=== PATIENT | male | born 1950 | race Native Hawaiian/Other Pacific Islander ===

== ENCOUNTER 2018-04-19 08:26 | Emergency (ER) | payer MEDICARE ==
[~2018-04-19] VITALS: Ht 170.2 cm; Wt 76.7 kg
[~2018-04-19 08:26] MED LIST: AMOX875 PO; ASPI81CH PO; ASPI81EC PO; Aspir 8181 MG PO; CEPH500 PO; CHLO25B PO; CYAN1000 PO; CYCL10 PO; DOCU100 PO; HYDACE5325 PO; LISI20 PO; LISI5 PO; LORA1 PO; MULTI VITAMIN1 EACH PO; MULVITMIND PO; NAPR375 PO; Norco 5-325 Ta1 EACH PO; OXYACE5T PO; OXYC5 PO; PHENY100ER PO; Pepcid20 MG PO; RXOXYACE PO; Roxicodone5 MG PO; SENN187 PO; SERT25 PO; SIME80CH PO; SIMV10 PO; SULTRIDS PO; Sulfamethoxazo1 EAC1 PO
[2018-04-19] MEDS ORDERED: Aspirin EC81 MG PO (08:57)
[2018-04-19] MEDS ORDERED: SIMV10 PO (08:57)
[2018-04-19] MEDS ORDERED: CHLO25B PO (08:58)
[2018-04-19] MEDS ORDERED: OXYC5 PO (08:58)
[2018-04-19] MEDS ORDERED: LISI20 PO (08:58)
[2018-04-19] MEDS ORDERED: PHENYTOIN PO (09:01)
[2018-04-19 09:17] LABS: BASOPHILS ABSOLUTE AUTO 0.02 K/mm3 (0.00-0.23); BASOPHILS PERCENT AUTO 0 % (0-2); EOSINOPHILS ABSOLUTE AUTO 0.29 K/mm3 (0.00-0.68); EOSINOPHILS PERCENT AUTO 4 % (0-6); Hematocrit 39.3 % (37.0-53.0); Hemoglobin 13.3 g/dL (13.5-17.5); IMMATURE GRAN ABSOLUTE AUTO 0.02 K/mm3 (0.00-0.10); IMMATURE GRAN PERCENT AUTO 0 % (0-1); LYMPHOCYTES ABSOLUTE AUTO 0.56 K/mm3 (0.84-5.20); LYMPHOCYTES PERCENT AUTO 8 % (21-46); MONOCYTES ABSOLUTE AUTO 0.82 K/mm3 (0.16-1.47); MONOCYTES PERCENT AUTO 12 % (4-13); Mean Corpuscular HGB Conc 33.8 g/dL (31.5-36.5); Mean Corpuscular Volume 98 fL (80-100); Mean Platelet Volume 8.6 fL (9.1-12.4); NEUTROPHILS PERCENT AUTO 75 % (41-73); Platelet Count 200 K/mm3 (150-400); RDW Coefficient Variation 12.8 % (11.7-14.2); RDW Standard Deviation 45.3 fL (35.1-46.3); Red Blood Cell Count 4.03 M/mm3 (4.30-5.90); White Blood Cell Count 6.71 K/mm3 (4.00-11.30)
[2018-04-19 09:35] LABS: Alanine Aminotransfer (ALT/SGP 35 U/L (12-78); Albumin, Blood 3.4 g/dL (3.4-5.0); Albumin/Globulin Ratio 1.1 (0.8-1.8); Alk Phos 115 U/L (50-136); Anion Gap 5 mmol/L (6-16); Aspartate Aminotrans (AST/SGOT 25 U/L (12-37); Bilirubin, Total 0.4 mg/dL (0.1-1.0); Blood Urea Nitrogen 10 mg/dL (8-24); Bun/Creatinine Ratio 16.6 (12.0-20.0); CO2, Blood 27 mmol/L (21-32); Calcium, Blood 7.9 mg/dL (8.5-10.1); Chloride, Blood 100 mmol/L (98-108); Globulin, Blood 3.2 g/dL (2.2-4.0); Glomerular Filtration Rate >60 (60-); Glucose, Blood 92 mg/dL (70-99); Potassium, Blood 4.2 mmol/L (3.5-5.5); Sodium, Blood 132 mmol/L (136-145); Total Protein, Blood 6.6 g/dL (6.4-8.2); Troponin I <0.015 ng/mL (0.000-0.040)
[2018-04-19 10:00] LABS: Influenza A Negative (NEGATIVE); Influenza B Negative (NEGATIVE)
[2018-04-19] MEDS ORDERED: ALBU90OI INH (10:18)
== END 2018-04-19 11:05 | disposition home or self-care (01) ==
LOC: ER 08:26
PROVIDERS: Emergency Medicine
DX: J98.01 Acute bronchospasm (principal); J06.9 Acute upper respiratory infection, unspecified; F43.10 Post-traumatic stress disorder, unspecified; I10 Essential (primary) hypertension; E78.5 Hyperlipidemia, unspecified; Z87.891 Personal history of nicotine dependence; Z79.899 Other long term (current) drug therapy; Z79.82 Long term (current) use of aspirin; Z79.891 Long term (current) use of opiate analgesic
CPT/HCPCS: 36415; 71046; 80053; 83880; 84484; 85025; 87804; 93005; 93010; 94640; 99284-25

== ENCOUNTER 2018-10-17 09:49 | Emergency (ER) | payer MEDICARE ==
[~2018-10-17] VITALS: Ht 167.6 cm; Wt 76.2 kg
[~2018-10-17 09:49] MED LIST changes: +ALBU90OI INH; +Aspirin EC81 MG PO; +PHENYTOIN PO
[2018-10-17 11:05] LABS: BASOPHILS ABSOLUTE AUTO 0.01 K/mm3 (0.00-0.23); BASOPHILS PERCENT AUTO 0 % (0-2); EOSINOPHILS ABSOLUTE AUTO 0.72 K/mm3 (0.00-0.68); EOSINOPHILS PERCENT AUTO 14 % (0-6); Hematocrit 42.5 % (37.0-53.0); Hemoglobin 14.4 g/dL (13.5-17.5); IMMATURE GRAN ABSOLUTE AUTO 0.01 K/mm3 (0.00-0.10); IMMATURE GRAN PERCENT AUTO 0 % (0-1); LYMPHOCYTES ABSOLUTE AUTO 2.01 K/mm3 (0.84-5.20); LYMPHOCYTES PERCENT AUTO 38 % (21-46); MONOCYTES ABSOLUTE AUTO 0.49 K/mm3 (0.16-1.47); MONOCYTES PERCENT AUTO 9 % (4-13); Mean Corpuscular HGB Conc 33.9 g/dL (31.5-36.5); Mean Corpuscular Volume 97 fL (80-100); Mean Platelet Volume 8.1 fL (9.1-12.4); NEUTROPHILS ABSOLUTE AUTO 2.04 K/mm3 (1.96-9.15); NEUTROPHILS PERCENT AUTO 39 % (41-73); Platelet Count 226 K/mm3 (150-400); RDW Coefficient Variation 12.5 % (11.7-14.2); Red Blood Cell Count 4.37 M/mm3 (4.30-5.90); White Blood Cell Count 5.28 K/mm3 (4.00-11.30)
[2018-10-17 11:17] LABS: Alanine Aminotransfer (ALT/SGP 41 U/L (12-78); Albumin, Blood 3.8 g/dL (3.4-5.0); Albumin/Globulin Ratio 1.1 (0.8-1.8); Alk Phos 113 U/L (50-136); Anion Gap 5 mmol/L (6-16); Aspartate Aminotrans (AST/SGOT 23 U/L (12-37); Bilirubin, Total 0.6 mg/dL (0.1-1.0); Blood Urea Nitrogen 9 mg/dL (8-24); Bun/Creatinine Ratio 12.9 (12.0-20.0); CO2, Blood 29 mmol/L (21-32); Calcium, Blood 8.3 mg/dL (8.5-10.1); Chloride, Blood 101 mmol/L (98-108); Globulin, Blood 3.5 g/dL (2.2-4.0); Glomerular Filtration Rate >60 (60-); Glucose, Blood 99 mg/dL (70-99); Potassium, Blood 4.3 mmol/L (3.5-5.5); Sodium, Blood 135 mmol/L (136-145); Total Protein, Blood 7.3 g/dL (6.4-8.2)
[2018-10-17] MEDS ORDERED: Prednisone20 MG PO (12:59)
[2018-10-17] MEDS ORDERED: ALBU90OI INH (12:59)
== END 2018-10-17 13:24 | disposition home or self-care (01) ==
LOC: ER 09:49
PROVIDERS: Emergency Medicine
DX: R06.02 Shortness of breath (principal); F12.90 Cannabis use, unspecified, uncomplicated; I10 Essential (primary) hypertension; E78.5 Hyperlipidemia, unspecified; F17.290 Nicotine dependence, other tobacco product, uncomplicated; Z79.899 Other long term (current) drug therapy; Z79.82 Long term (current) use of aspirin; Z79.891 Long term (current) use of opiate analgesic
CPT/HCPCS: 36415; 71046; 80053; 83880; 85025; 93005; 93010; 99285-25

== ENCOUNTER 2019-02-05 14:07 | Emergency (ER) | payer OTHER ==
[~2019-02-05] VITALS: Ht 167.6 cm; Wt 79.0 kg
[~2019-02-05 14:07] MED LIST changes: +Prednisone20 MG PO
[2019-02-05 14:45] LABS: BASOPHILS ABSOLUTE AUTO 0.02 K/mm3 (0.00-0.23); BASOPHILS PERCENT AUTO 0 % (0-2); EOSINOPHILS ABSOLUTE AUTO 0.73 K/mm3 (0.00-0.68); EOSINOPHILS PERCENT AUTO 12 % (0-6); Hematocrit 44.2 % (37.0-53.0); Hemoglobin 14.6 g/dL (13.5-17.5); IMMATURE GRAN ABSOLUTE AUTO 0.01 K/mm3 (0.00-0.10); IMMATURE GRAN PERCENT AUTO 0 % (0-1); LYMPHOCYTES PERCENT AUTO 39 % (21-46); MONOCYTES ABSOLUTE AUTO 0.52 K/mm3 (0.16-1.47); MONOCYTES PERCENT AUTO 9 % (4-13); Mean Corpuscular HGB 32.2 pg (26.0-34.0); Mean Corpuscular Volume 98 fL (80-100); Mean Platelet Volume 8.1 fL (9.1-12.4); NEUTROPHILS ABSOLUTE AUTO 2.37 K/mm3 (1.96-9.15); NEUTROPHILS PERCENT AUTO 40 % (41-73); Platelet Count 257 K/mm3 (150-400); RDW Coefficient Variation 12.4 % (11.7-14.2); RDW Standard Deviation 44.5 fL (35.1-46.3); Red Blood Cell Count 4.53 M/mm3 (4.30-5.90); White Blood Cell Count 5.95 K/mm3 (4.00-11.30)
[2019-02-05] MEDS ORDERED: LEVE500 (14:53)
[2019-02-05] MEDS ORDERED: Ventolin/Prove6.7 GM INH (14:53)
[2019-02-05 14:56] LABS: Alanine Aminotransfer (ALT/SGP 28 U/L (12-78); Albumin, Blood 3.5 g/dL (3.4-5.0); Alk Phos 120 U/L (50-136); Anion Gap 6 mmol/L (6-16); Aspartate Aminotrans (AST/SGOT 22 U/L (12-37); Bilirubin, Total 0.3 mg/dL (0.1-1.0); Blood Urea Nitrogen 7 mg/dL (8-24); Bun/Creatinine Ratio 11.7 (12.0-20.0); CO2, Blood 25 mmol/L (21-32); Calcium, Blood 8.4 mg/dL (8.5-10.1); Chloride, Blood 103 mmol/L (98-108); Globulin, Blood 3.4 g/dL (2.2-4.0); Glomerular Filtration Rate >60 (60-); Glucose, Blood 98 mg/dL (70-99); Potassium, Blood 4.3 mmol/L (3.5-5.5); Sodium, Blood 134 mmol/L (136-145); Total Protein, Blood 6.9 g/dL (6.4-8.2); Troponin I <0.015 ng/mL (0.000-0.040)
[2019-02-05 15:19] LABS: Dilantin (Phenytoin), Total 15.6 ug/mL (10.0-20.0)
[2019-02-05] MEDS ORDERED: BENZ100A PO (15:37)
[2019-02-05] MEDS ORDERED: Prednisone20 MG PO (15:37)
[2019-02-16] MEDS ORDERED: PHENY100ER PO (07:26)
[2019-02-16] MEDS ORDERED: Accuneb0.63 MG/3 (07:26)
[2019-02-16] MEDS ORDERED: Prednisone20 MG PO (09:17)
[2019-02-16] MEDS ORDERED: BENZ100A PO (09:17)
[2019-02-16] MEDS ORDERED: Zithromax250 MG PO (09:17)
== END 2019-02-05 16:25 | disposition home or self-care (01) ==
LOC: ER 14:07
PROVIDERS: Emergency Medicine; Physician Assistant
DX: J44.1 Chronic obstructive pulmonary disease with (acute) exacerbation (principal); Z79.899 Other long term (current) drug therapy; Z79.82 Long term (current) use of aspirin; F43.10 Post-traumatic stress disorder, unspecified; I10 Essential (primary) hypertension; E78.5 Hyperlipidemia, unspecified; G40.909 Epilepsy, unspecified, not intractable, without status epilepticus; Z87.891 Personal history of nicotine dependence
CPT/HCPCS: 36415; 71046; 80053; 80185; 83880; 84484; 85025; 93005; 93010; 96374; 99284-25; J2930

== ENCOUNTER 2019-02-17 07:45 | Emergency (ER) | payer OTHER ==
[~2019-02-17] VITALS: Ht 170.2 cm; Wt 79.4 kg
[~2019-02-17 07:45] MED LIST changes: +Accuneb0.63 MG/3; +BENZ100A PO; +LEVE500; +Ventolin/Prove6.7 GM INH; +Zithromax250 MG PO
[2019-02-17 08:19] LABS: BASOPHILS ABSOLUTE AUTO 0.04 K/mm3 (0.00-0.23); BASOPHILS PERCENT AUTO 1 % (0-2); EOSINOPHILS ABSOLUTE AUTO 1.22 K/mm3 (0.00-0.68); EOSINOPHILS PERCENT AUTO 16 % (0-6); Hematocrit 41.9 % (37.0-53.0); Hemoglobin 13.9 g/dL (13.5-17.5); IMMATURE GRAN ABSOLUTE AUTO 0.03 K/mm3 (0.00-0.10); IMMATURE GRAN PERCENT AUTO 0 % (0-1); LYMPHOCYTES ABSOLUTE AUTO 2.43 K/mm3 (0.84-5.20); LYMPHOCYTES PERCENT AUTO 33 % (21-46); MONOCYTES ABSOLUTE AUTO 0.66 K/mm3 (0.16-1.47); MONOCYTES PERCENT AUTO 9 % (4-13); Mean Corpuscular HGB 31.8 pg (26.0-34.0); Mean Corpuscular HGB Conc 33.2 g/dL (31.5-36.5); Mean Corpuscular Volume 96 fL (80-100); NEUTROPHILS ABSOLUTE AUTO 3.09 K/mm3 (1.96-9.15); NEUTROPHILS PERCENT AUTO 42 % (41-73); RDW Coefficient Variation 12.8 % (11.7-14.2); RDW Standard Deviation 45.1 fL (35.1-46.3); Red Blood Cell Count 4.37 M/mm3 (4.30-5.90); White Blood Cell Count 7.47 K/mm3 (4.00-11.30)
[2019-02-17 08:25] LABS: Alanine Aminotransfer (ALT/SGP 35 U/L (12-78); Albumin, Blood 3.5 g/dL (3.4-5.0); Alk Phos 108 U/L (50-136); Anion Gap 7 mmol/L (6-16); Aspartate Aminotrans (AST/SGOT 20 U/L (12-37); Bilirubin, Total 0.3 mg/dL (0.1-1.0); Blood Urea Nitrogen 8 mg/dL (8-24); Bun/Creatinine Ratio 10.8 (12.0-20.0); CO2, Blood 26 mmol/L (21-32); Calcium, Blood 8.3 mg/dL (8.5-10.1); Chloride, Blood 102 mmol/L (98-108); Creatinine, Blood 0.74 mg/dL (0.60-1.20); Globulin, Blood 3.4 g/dL (2.2-4.0); Glomerular Filtration Rate >60 (60-); Glucose, Blood 112 mg/dL (70-99); Potassium, Blood 3.8 mmol/L (3.5-5.5); Sodium, Blood 135 mmol/L (136-145); Total Protein, Blood 6.9 g/dL (6.4-8.2); Troponin I <0.015 ng/mL (0.000-0.040)
[2019-02-17 08:34] LABS: Mean Platelet Volume 8.5 fL (9.1-12.4); Platelet Count 235 K/mm3 (150-400)
[2019-02-17] MEDS ORDERED: LEVE500 PO (08:47)
[2019-02-17] MEDS ORDERED: DONE5 PO (08:48)
[2019-02-17] MEDS ORDERED: STIOLTO RESPIMAT4 GM INH (08:50)
[2019-02-17] MEDS ORDERED: Colace100 MG PO (08:51)
[2019-02-17] MEDS ORDERED: Zithromax250 MG PO (09:35)
[2019-02-17] MEDS ORDERED: Prednisone20 MG PO (09:35)
[2019-02-17] MEDS ORDERED: ALBU90OI INH (09:35)
== END 2019-02-17 10:02 | disposition home or self-care (01) ==
LOC: ER 07:45
PROVIDERS: Physician Assistant
DX: J44.1 Chronic obstructive pulmonary disease with (acute) exacerbation (principal); I10 Essential (primary) hypertension; G40.909 Epilepsy, unspecified, not intractable, without status epilepticus; F43.10 Post-traumatic stress disorder, unspecified; Z79.82 Long term (current) use of aspirin; Z79.52 Long term (current) use of systemic steroids; Z79.899 Other long term (current) drug therapy; Z87.891 Personal history of nicotine dependence
CPT/HCPCS: 80053; 83880; 84484; 85025; 93005; 93010; 94640; 99284-25; J7512

== ENCOUNTER → 2019-03-14 | Outpatient (CLI) | payer OTHER ==
[~2019-03-14] MED LIST changes: +Colace100 MG PO; +DONE5 PO; +LEVE500 PO; +STIOLTO RESPIMAT4 GM INH
== END | disposition home or self-care (01) ==
LOC: LAB SHORT 13:21 → OLS 13:21
DX: J44.1 Chronic obstructive pulmonary disease with (acute) exacerbation (principal)
CPT/HCPCS: 87070; 87205

== ENCOUNTER 2019-04-07 07:56 | Emergency (ER) | payer OTHER ==
[~2019-04-07] VITALS: Ht 167.6 cm; Wt 78.0 kg
[2019-04-07 08:47] LABS: BASOPHILS ABSOLUTE AUTO 0.02 K/mm3 (0.00-0.23); BASOPHILS PERCENT AUTO 0 % (0-2); EOSINOPHILS ABSOLUTE AUTO 0.82 K/mm3 (0.00-0.68); EOSINOPHILS PERCENT AUTO 14 % (0-6); Hematocrit 44.7 % (37.0-53.0); Hemoglobin 14.9 g/dL (13.5-17.5); IMMATURE GRAN ABSOLUTE AUTO 0.01 K/mm3 (0.00-0.10); IMMATURE GRAN PERCENT AUTO 0 % (0-1); LYMPHOCYTES ABSOLUTE AUTO 1.82 K/mm3 (0.84-5.20); LYMPHOCYTES PERCENT AUTO 30 % (21-46); MONOCYTES ABSOLUTE AUTO 0.56 K/mm3 (0.16-1.47); MONOCYTES PERCENT AUTO 9 % (4-13); Mean Corpuscular HGB 31.8 pg (26.0-34.0); Mean Corpuscular HGB Conc 33.3 g/dL (31.5-36.5); Mean Corpuscular Volume 95 fL (80-100); Mean Platelet Volume 8.2 fL (9.1-12.4); NEUTROPHILS ABSOLUTE AUTO 2.78 K/mm3 (1.96-9.15); NEUTROPHILS PERCENT AUTO 46 % (41-73); Platelet Count 266 K/mm3 (150-400); RDW Standard Deviation 45.6 fL (35.1-46.3); Red Blood Cell Count 4.69 M/mm3 (4.30-5.90); White Blood Cell Count 6.01 K/mm3 (4.00-11.30)
[2019-04-07 09:16] LABS: Alanine Aminotransfer (ALT/SGP 31 U/L (12-78); Albumin, Blood 3.6 g/dL (3.4-5.0); Alk Phos 120 U/L (50-136); Anion Gap 5 mmol/L (6-16); Aspartate Aminotrans (AST/SGOT 14 U/L (12-37); Bilirubin, Total 0.3 mg/dL (0.1-1.0); Blood Urea Nitrogen 7 mg/dL (8-24); Bun/Creatinine Ratio 10.5 (12.0-20.0); CO2, Blood 29 mmol/L (21-32); Calcium, Blood 8.4 mg/dL (8.5-10.1); Chloride, Blood 104 mmol/L (98-108); Creatinine, Blood 0.67 mg/dL (0.60-1.20); Globulin, Blood 3.6 g/dL (2.2-4.0); Glomerular Filtration Rate >60 (60-); Glucose, Blood 94 mg/dL (70-99); Potassium, Blood 4.2 mmol/L (3.5-5.5); Sodium, Blood 138 mmol/L (136-145); Total Protein, Blood 7.2 g/dL (6.4-8.2); Troponin I <0.015 ng/mL (0.000-0.040)
[2019-04-07] MEDS ORDERED: Zithromax250 MG PO (10:46)
[2019-04-07] MEDS ORDERED: METPRE4DP PO (10:46)
== END 2019-04-07 10:58 | disposition home or self-care (01) ==
LOC: ER 07:56
PROVIDERS: Emergency Medicine
DX: J44.1 Chronic obstructive pulmonary disease with (acute) exacerbation (principal); I10 Essential (primary) hypertension; E78.5 Hyperlipidemia, unspecified; Z87.891 Personal history of nicotine dependence
CPT/HCPCS: 36415; 71046; 80053; 83880; 84484; 85025; 93005; 93010; 94640; 96374; 99285-25; J2930

== ENCOUNTER 2019-04-12 01:56 | Inpatient (IN) | payer OTHER ==
[~2019-04-12] VITALS: Ht 167.6 cm; Wt 84.7 kg
[~2019-04-12 01:56] MED LIST changes: +ALBU2.5V5 INH; -Accuneb0.63 MG/3; +METPRE4DP PO; -Ventolin/Prove6.7 GM INH; +Vitamin B-121000 MCG PO
[2019-04-12 02:24] LABS: PCO2 Arterial 50.2 mmHg (35-45); PO2 Arterial 73.3 mmHg (80-100); pH Blood Arterial 7.36 (7.35-7.45)
[2019-04-12 02:25] LABS: BASOPHILS ABSOLUTE AUTO 0.04 K/mm3 (0.00-0.23); BASOPHILS PERCENT AUTO 1 % (0-2); EOSINOPHILS ABSOLUTE AUTO 1.49 K/mm3 (0.00-0.68); EOSINOPHILS PERCENT AUTO 20 % (0-6); Hematocrit 43.8 % (37.0-53.0); Hemoglobin 14.6 g/dL (13.5-17.5); IMMATURE GRAN ABSOLUTE AUTO 0.01 K/mm3 (0.00-0.10); IMMATURE GRAN PERCENT AUTO 0 % (0-1); LYMPHOCYTES ABSOLUTE AUTO 2.77 K/mm3 (0.84-5.20); LYMPHOCYTES PERCENT AUTO 36 % (21-46); MONOCYTES ABSOLUTE AUTO 0.81 K/mm3 (0.16-1.47); MONOCYTES PERCENT AUTO 11 % (4-13); Mean Corpuscular HGB Conc 33.3 g/dL (31.5-36.5); Mean Corpuscular Volume 96 fL (80-100); Mean Platelet Volume 7.9 fL (9.1-12.4); NEUTROPHILS ABSOLUTE AUTO 2.48 K/mm3 (1.96-9.15); NEUTROPHILS PERCENT AUTO 33 % (41-73); Platelet Count 260 K/mm3 (150-400); RDW Coefficient Variation 13.1 % (11.7-14.2); RDW Standard Deviation 46.6 fL (35.1-46.3); Red Blood Cell Count 4.56 M/mm3 (4.30-5.90)
[2019-04-12 02:45] LABS: Alanine Aminotransfer (ALT/SGP 53 U/L (12-78); Albumin, Blood 3.6 g/dL (3.4-5.0); Albumin/Globulin Ratio 1.1 (0.8-1.8); Alk Phos 113 U/L (50-136); Anion Gap 5 mmol/L (6-16); Aspartate Aminotrans (AST/SGOT 27 U/L (12-37); Bilirubin, Total 0.2 mg/dL (0.1-1.0); Blood Urea Nitrogen 7 mg/dL (8-24); Bun/Creatinine Ratio 10.3 (12.0-20.0); CO2, Blood 28 mmol/L (21-32); Calcium, Blood 8.2 mg/dL (8.5-10.1); Chloride, Blood 104 mmol/L (98-108); Creatinine, Blood 0.68 mg/dL (0.60-1.20); Globulin, Blood 3.4 g/dL (2.2-4.0); Glomerular Filtration Rate >60 (60-); Glucose, Blood 97 mg/dL (70-99); Potassium, Blood 4.3 mmol/L (3.5-5.5); Sodium, Blood 137 mmol/L (136-145); Troponin I <0.015 ng/mL (0.000-0.040)
[2019-04-12] MEDS ORDERED: PHENY100ER (03:54)
--- NOTE | 2019-04-12 05:59 | NUR ---
PAINTINGS RESTORER SUMMARY NEW ADMIT FROM THE ED TONIGHT. PT ADMITTED WITH COPD EXACERBATION. AAOX4 AND PLEASANT. ABLE TO TRANSFER FROM ED GOURNEY TO BED. PT ARRIVED ON 4L O2 VIA NC, HOWEVER O2 SATS WERE HIGH 90'S SO PLACED ON RA AND STILL SATTING 93-95%. PT HAS BIPAP AVAILABLE IF NEEDED BUT PT HAS NOT REQUESTED THUS FAR. GIVEN PO AZITHROMYCIN AND IV SOLUMEDROL. LUNGS WHEEZY T/O. VSS, WILL CONTINUE TO MONITOR.
--- NOTE | 2019-04-12 07:18 | NUR ---
ASSUMED PATIENT CARE. PATIENT RESTING COMFORTABLY IN BED, EQUAL BILATERAL CHEST RISE WITH BREATH. NO SIGNS OF ACUTE DISTRESS.
--- NOTE | 2019-04-12 18:35 | NUR ---
NO ACUTE EVENTS THIS SHIFT. PATIENT ON ROOM AIR THIS SHIFT, MAINTAINED O2 SATURATION OF 94+. LUNG SOUNDS IMPROVED THROUGH DAY. DECREASE IN WHEEZING BY END OF SHIFT. THIS MORNING INSPIRATORY AND EXPIRATORY WHEEZES, BY THIS EVENING ONLY EXPIRATORY WHEEZES. PATIENT HAS DENIED CHEST PAIN THIS SHIFT.
--- NOTE | 2019-04-12 19:30 | NUR ---
RELINQUISHED PATIENT CARE.
--- NOTE | 2019-04-12 22:40 | NUR ---
PATIENT RESTING IN BED, SOB WITH SLIGHT ACTIVITY AND WITH TALKING. LUNG SOUNDS WITH EXPIRATORY WHEEZES T/O. OXYGEN 2L/NC. PATIENT RONEY PO WITHOUT DIFFICULTY. USING CALL LIGHT APPROP AND COOPERATIVE WITH CARE.
[2019-04-13 04:11] LABS: BASOPHILS ABSOLUTE AUTO 0.01 K/mm3 (0.00-0.23); BASOPHILS PERCENT AUTO 0 % (0-2); EOSINOPHILS ABSOLUTE AUTO 0.01 K/mm3 (0.00-0.68); EOSINOPHILS PERCENT AUTO 0 % (0-6); Hematocrit 42.2 % (37.0-53.0); Hemoglobin 14.2 g/dL (13.5-17.5); IMMATURE GRAN ABSOLUTE AUTO 0.04 K/mm3 (0.00-0.10); IMMATURE GRAN PERCENT AUTO 0 % (0-1); LYMPHOCYTES ABSOLUTE AUTO 0.99 K/mm3 (0.84-5.20); LYMPHOCYTES PERCENT AUTO 10 % (21-46); MONOCYTES ABSOLUTE AUTO 0.23 K/mm3 (0.16-1.47); MONOCYTES PERCENT AUTO 2 % (4-13); Mean Corpuscular HGB 32.4 pg (26.0-34.0); Mean Corpuscular HGB Conc 33.6 g/dL (31.5-36.5); Mean Corpuscular Volume 96 fL (80-100); Mean Platelet Volume 8.4 fL (9.1-12.4); NEUTROPHILS ABSOLUTE AUTO 8.56 K/mm3 (1.96-9.15); NEUTROPHILS PERCENT AUTO 87 % (41-73); Platelet Count 256 K/mm3 (150-400); RDW Coefficient Variation 13.1 % (11.7-14.2); RDW Standard Deviation 46.6 fL (35.1-46.3); Red Blood Cell Count 4.38 M/mm3 (4.30-5.90); White Blood Cell Count 9.84 K/mm3 (4.00-11.30)
[2019-04-13 04:39] LABS: Anion Gap 5 mmol/L (6-16); Blood Urea Nitrogen 17 mg/dL (8-24); Bun/Creatinine Ratio 24.1 (12.0-20.0); CO2, Blood 27 mmol/L (21-32); Calcium, Blood 8.7 mg/dL (8.5-10.1); Chloride, Blood 103 mmol/L (98-108); Creatinine, Blood 0.71 mg/dL (0.60-1.20); Glomerular Filtration Rate >60 (60-); Glucose, Blood 115 mg/dL (70-99); Potassium, Blood 4.8 mmol/L (3.5-5.5); Sodium, Blood 135 mmol/L (136-145)
--- NOTE | 2019-04-13 06:26 | NUR ---
SUMMARY PATIENT AWAKE, CONTINUES TO HAVE SEVERE SOB WITH SLIGHT ACTIVITY AND WITH TALKING. CONTINUES ON 2L/NC MAINTAINING BIOX LOW 90'S PATIENT VERBALIZED THAT HE IS FEELING SLIGHTLY BETTER THIS MORNING. IV TO LEFT FA INFILTRATED, NEW SITE OBTAINED TO LEFT UPPER ARM.
--- NOTE | 2019-04-13 07:17 | NUR ---
ASSUMED PATIENT CARE. PATIENT RESTING COMFORTABLY IN BED, NO SIGNS OF ACUTE DISTRESS. PATIENT CONVERSING WITH NURSING STAFF. WCTM.
--- NOTE | 2019-04-13 14:09 | NUR ---
RECIEVED REPORT FROM D[facility]IN COMMUNITY CASE MANAGER AT 8905. PATIENT TO TRANSFER TO ROOM 327.
--- NOTE | 2019-04-13 14:18 | NUR ---
REPORT CALLED TO GORDON DAVIS ON MEDICAL FLOOR.
--- NOTE | 2019-04-13 14:25 | NUR ---
PATIENT TRANSFERRED TO [place] [id number].
--- NOTE | 2019-04-13 14:41 | NUR ---
PATIENT ARRIVED TO ROOM 327 AT 1430. TRANSFERED TO BED FROM / WITH ASSIST OF ONE PERSON. ALL NEEDS MET AT THIS TIME.
--- NOTE | 2019-04-13 15:46 | NUR ---
SHIFT SUMMARY PATIENT HAS ONLY BEEN ON THE UNIT FOR A FEW HOURS. PLEASANT AND COOPERATIVE. VITALS STABLE. CALLS STAFF APPROPRIATELY NEEDED. NO ACUTE CHANGES NOTED OR REPORTED THIS SHIFT.
[2019-04-14 05:01] LABS: BASOPHILS ABSOLUTE AUTO 0.02 K/mm3 (0.00-0.23); BASOPHILS PERCENT AUTO 0 % (0-2); EOSINOPHILS ABSOLUTE AUTO 0.04 K/mm3 (0.00-0.68); EOSINOPHILS PERCENT AUTO 0 % (0-6); Hemoglobin 14.7 g/dL (13.5-17.5); IMMATURE GRAN ABSOLUTE AUTO 0.04 K/mm3 (0.00-0.10); IMMATURE GRAN PERCENT AUTO 0 % (0-1); LYMPHOCYTES PERCENT AUTO 17 % (21-46); MONOCYTES ABSOLUTE AUTO 0.64 K/mm3 (0.16-1.47); MONOCYTES PERCENT AUTO 6 % (4-13); Mean Corpuscular HGB 31.6 pg (26.0-34.0); Mean Corpuscular HGB Conc 32.7 g/dL (31.5-36.5); Mean Corpuscular Volume 97 fL (80-100); Mean Platelet Volume 8.3 fL (9.1-12.4); NEUTROPHILS ABSOLUTE AUTO 8.26 K/mm3 (1.96-9.15); NEUTROPHILS PERCENT AUTO 76 % (41-73); Platelet Count 266 K/mm3 (150-400); RDW Coefficient Variation 13.2 % (11.7-14.2); RDW Standard Deviation 47.1 fL (35.1-46.3); Red Blood Cell Count 4.65 M/mm3 (4.30-5.90)
[2019-04-14 05:40] LABS: Anion Gap 6 mmol/L (6-16); Blood Urea Nitrogen 19 mg/dL (8-24); Bun/Creatinine Ratio 27.7 (12.0-20.0); CO2, Blood 28 mmol/L (21-32); Calcium, Blood 8.8 mg/dL (8.5-10.1); Chloride, Blood 103 mmol/L (98-108); Creatinine, Blood 0.69 mg/dL (0.60-1.20); Glomerular Filtration Rate >60 (60-); Glucose, Blood 100 mg/dL (70-99); Potassium, Blood 4.8 mmol/L (3.5-5.5); Sodium, Blood 137 mmol/L (136-145)
--- NOTE | 2019-04-14 06:06 | NUR ---
POLYMER SCIENTIST SUMMARY PT A/O X4. SLEPT WELL TONIGHT. DENIES PAIN, NAUSEA, DIZZINESS. PT HAD SOME SOB AT BEGINNING OF MY SHIFT. PT HAD JUST GOTTEN BACK FROM A WALK. PT RECIEVED BREATHING TREARMENT. CURRENTLY ON 2 L O2 NASAL CANNULA. NO ACUTE CHANGES. VSS. CALL LIGHT WITHIN REACH.
--- NOTE | 2019-04-14 09:51 | NUR ---
PT GAVE CONSENT FOR STUENT TO PROVIDE CARE.
--- NOTE | 2019-04-14 09:59 | NUR ---
IV R. ANTECUBITAL IS PATENT AND FLUSHING WELL WITH NORMAL SALINE
--- NOTE | 2019-04-14 20:04 | NUR ---
SHIFT SUMMARY PATIENT IS WITHOUT ANY ACUTE CHANGES THIS SHIFT. VITALS HAVE BEEN STABLE AND PATIENT HAS BEEN BREATHING WNL WITHOUT O2. REPORT PASSED ON TO HS RN WHO HAS ASSUMED PATIENT CARE.
--- NOTE | 2019-04-15 05:28 | NUR ---
SEAT MAKER SUMMARY PT A/O X4. EXP WHEEZING HEARD THROUGHOUT LUNG CRUZ. WHEEZING SOUNDS SOUNDS MORE FAINT COMPARED TO YESTERDAY THROUGH AUSCULATION. PT STATED HE HAS BEEN BREATHING MUCH BETTER TODAY THAN YESTERDAY. HE DOES NOT APPEAR TO HAVE MUCH SOB WHEN AMBULATING. PT ON ROOM AIR SATTING IN THE MID TO HIGH 90'S. DENIES PAIN, DIZZNIESS, NAUSEA. VSS. CALL DUCKWORTH WITHIN REACH. PLEASANT AND COOPERATIVE.
[2019-04-15] MEDS ORDERED: AZIT500 PO (12:23)
[2019-04-15] MEDS ORDERED: BUDE.25 NEB (12:33)
--- NOTE | 2019-04-15 13:33 | NUR ---
DISCHARGE INSTRUCTIONS REVIEWED WITH THE PATIENT, HIS AND DAUGHTER. EDUCATIONAL MATERIAL ALSO PROVIDED. ALL QUESTIONS ANSWERED. IV REMOVED. O2 HOME EVAL COMPLETED. PATIENT DOES NOT NEED O2. PATIENT IN ROOM PREPARING FOR DISCHARGE HOME WITH .
--- NOTE | 2019-04-15 14:51 | NUR ---
PATIENT DISCHARGED HOME WITH AT 1445. SUSAN GARCIA, ASSISTED PATIENT OUT TO CAR IN WHEELCHAIR.
== END 2019-04-15 14:45 | disposition home or self-care (01) | DRG 189 ==
LOC: ER 01:56 → PCU 03:57 → MEDS 04-13 14:39
PROVIDERS: Emergency Medicine; Internal Medicine; ADMIT Internal Medicine
PROC: 5A09357 Assistance with Respiratory Ventilation, Less than 24 Consecutive Hours, Continuous Positive Airway Pressure (ICD-10-PCS; principal; 2019-04-12)
DX: J96.01 Acute respiratory failure with hypoxia (principal); J44.1 Chronic obstructive pulmonary disease with (acute) exacerbation; J96.02 Acute respiratory failure with hypercapnia; G40.909 Epilepsy, unspecified, not intractable, without status epilepticus; F43.10 Post-traumatic stress disorder, unspecified; I10 Essential (primary) hypertension; E78.5 Hyperlipidemia, unspecified; Z87.891 Personal history of nicotine dependence; Z66 Do not resuscitate; Z79.82 Long term (current) use of aspirin; J20.9 Acute bronchitis, unspecified
CPT/HCPCS: 36415; 36600; 71045; 80048; 80053; 82803; 84145; 84484; 85025; 90686; 93005; 93010; 94640; 94644; 94660; 94664; 94667; 94760; 94761; 96374; 97116; 97162; 97530; 98960; 99285-25; A9270-GY; J1650; J2930; J7512

== ENCOUNTER 2019-10-18 11:41 | Emergency (ER) | payer OTHER ==
[~2019-10-18] VITALS: Ht 167.6 cm; Wt 88.0 kg
[~2019-10-18 11:41] MED LIST changes: -ALBU2.5V5 INH; +AZIT500 PO; -Aspirin EC81 MG PO; -Colace100 MG PO; -DONE5 PO; -LEVE500 PO; -MULTI VITAMIN1 EACH PO; +PHENY100ER; -STIOLTO RESPIMAT4 GM INH; -Vitamin B-121000 MCG PO
[2019-10-18 12:21] LABS: BASOPHILS ABSOLUTE AUTO 0.03 K/mm3 (0.00-0.23); BASOPHILS PERCENT AUTO 0 % (0-2); EOSINOPHILS ABSOLUTE AUTO 0.86 K/mm3 (0.00-0.68); EOSINOPHILS PERCENT AUTO 13 % (0-6); Hematocrit 42.6 % (37.0-53.0); Hemoglobin 14.1 g/dL (13.5-17.5); IMMATURE GRAN ABSOLUTE AUTO 0.01 K/mm3 (0.00-0.10); IMMATURE GRAN PERCENT AUTO 0 % (0-1); LYMPHOCYTES ABSOLUTE AUTO 2.54 K/mm3 (0.84-5.20); LYMPHOCYTES PERCENT AUTO 37 % (21-46); MONOCYTES ABSOLUTE AUTO 0.62 K/mm3 (0.16-1.47); MONOCYTES PERCENT AUTO 9 % (4-13); Mean Corpuscular HGB 32.2 pg (26.0-34.0); Mean Corpuscular HGB Conc 33.1 g/dL (31.5-36.5); Mean Corpuscular Volume 97 fL (80-100); Mean Platelet Volume 8.3 fL (9.1-12.4); NEUTROPHILS ABSOLUTE AUTO 2.81 K/mm3 (1.96-9.15); NEUTROPHILS PERCENT AUTO 41 % (41-73); Platelet Count 261 K/mm3 (150-400); RDW Coefficient Variation 13.1 % (11.7-14.2); RDW Standard Deviation 47.5 fL (35.1-46.3); Red Blood Cell Count 4.38 M/mm3 (4.30-5.90); White Blood Cell Count 6.87 K/mm3 (4.00-11.30)
[2019-10-18 13:18] LABS: Troponin I <0.015 ng/mL (0.000-0.040)
[2019-10-18 13:24] LABS: Alanine Aminotransfer (ALT/SGP 35 U/L (12-78); Albumin, Blood 3.3 g/dL (3.4-5.0); Alk Phos 103 U/L (50-136); Anion Gap 8 mmol/L (6-16); Aspartate Aminotrans (AST/SGOT 21 U/L (12-37); Bilirubin, Total 0.3 mg/dL (0.1-1.0); Blood Urea Nitrogen 11 mg/dL (8-24); Bun/Creatinine Ratio 16.6 (12.0-20.0); CO2, Blood 24 mmol/L (21-32); Calcium, Blood 8.3 mg/dL (8.5-10.1); Chloride, Blood 105 mmol/L (98-108); Creatinine, Blood 0.66 mg/dL (0.60-1.20); Globulin, Blood 3.4 g/dL (2.2-4.0); Glomerular Filtration Rate >60 (60-); Glucose, Blood 99 mg/dL (70-99); Potassium, Blood 4.3 mmol/L (3.5-5.5); Sodium, Blood 137 mmol/L (136-145); Thyroid Stimulating Hormone 0.861 uIU/mL (0.360-4.800); Total Protein, Blood 6.7 g/dL (6.4-8.2)
[2019-10-18] MEDS ORDERED: DILT120 PO (14:35)
[2019-10-18] MEDS ORDERED: WARF2.5 PO (14:35)
[2019-10-18] MEDS ORDERED: Lipitor10 MG PO (14:35)
[2019-10-18] MEDS ORDERED: ENOX80I SC (14:46)
== END 2019-10-18 15:19 | disposition home or self-care (01) ==
LOC: ER 11:41
PROVIDERS: Emergency Medicine
DX: I48.91 Unspecified atrial fibrillation (principal); J44.9 Chronic obstructive pulmonary disease, unspecified; I10 Essential (primary) hypertension; E78.5 Hyperlipidemia, unspecified; G40.909 Epilepsy, unspecified, not intractable, without status epilepticus; Z79.82 Long term (current) use of aspirin; Z79.51 Long term (current) use of inhaled steroids; Z87.891 Personal history of nicotine dependence; Z79.899 Other long term (current) drug therapy
CPT/HCPCS: 36415; 71046; 80053; 83735; 83880; 84443; 84484; 85025; 93005; 93010; 96372-59; 96374; 99285-25; J1650

== ENCOUNTER 2019-10-19 23:30 | Emergency (ER) | payer OTHER, MEDICARE ==
[~2019-10-19] VITALS: Ht 167.6 cm; Wt 88.0 kg
[~2019-10-19 23:30] MED LIST changes: +DILT120 PO; +ENOX80I SC; +Lipitor10 MG PO; +WARF2.5 PO
[2019-10-20] LABS: BASOPHILS ABSOLUTE AUTO 0.04 K/mm3 (0.00-0.23); BASOPHILS PERCENT AUTO 1 % (0-2); EOSINOPHILS ABSOLUTE AUTO 0.96 K/mm3 (0.00-0.68); EOSINOPHILS PERCENT AUTO 12 % (0-6); Hematocrit 42.8 % (37.0-53.0); Hemoglobin 14.1 g/dL (13.5-17.5); IMMATURE GRAN ABSOLUTE AUTO 0.01 K/mm3 (0.00-0.10); IMMATURE GRAN PERCENT AUTO 0 % (0-1); LYMPHOCYTES ABSOLUTE AUTO 2.81 K/mm3 (0.84-5.20); LYMPHOCYTES PERCENT AUTO 34 % (21-46); MONOCYTES ABSOLUTE AUTO 0.84 K/mm3 (0.16-1.47); MONOCYTES PERCENT AUTO 10 % (4-13); Mean Corpuscular HGB Conc 32.9 g/dL (31.5-36.5); Mean Corpuscular Volume 97 fL (80-100); Mean Platelet Volume 8.3 fL (9.1-12.4); NEUTROPHILS ABSOLUTE AUTO 3.59 K/mm3 (1.96-9.15); NEUTROPHILS PERCENT AUTO 44 % (41-73); Platelet Count 248 K/mm3 (150-400); RDW Coefficient Variation 13.3 % (11.7-14.2); Red Blood Cell Count 4.41 M/mm3 (4.30-5.90); White Blood Cell Count 8.25 K/mm3 (4.00-11.30)
[2019-10-20 00:14] LABS: Anion Gap 5 mmol/L (6-16); Blood Urea Nitrogen 13 mg/dL (8-24); Bun/Creatinine Ratio 14.6 (12.0-20.0); CO2, Blood 25 mmol/L (21-32); Calcium, Blood 8.2 mg/dL (8.5-10.1); Chloride, Blood 107 mmol/L (98-108); Creatinine, Blood 0.89 mg/dL (0.60-1.20); Glomerular Filtration Rate >60 (60-); Glucose, Blood 100 mg/dL (70-99); Potassium, Blood 4.5 mmol/L (3.5-5.5); Sodium, Blood 137 mmol/L (136-145)
[2019-10-20] MEDS ORDERED: Prednisone20 MG PO (00:42)
[2019-10-20] MEDS ORDERED: ALBU2.5V5 NEB (14:15)
[2019-10-20] MEDS ORDERED: ALBU90OI INH (14:16)
[2019-10-20] MEDS ORDERED: Aspirin EC81 MG PO (14:16)
[2019-10-20] MEDS ORDERED: ATOR10 PO (14:17)
[2019-10-20] MEDS ORDERED: BUDESONIDE0.5 MG/2 M NEB (14:18)
[2019-10-20] MEDS ORDERED: Vitamin D2000 UNIT PO (14:19)
[2019-10-20] MEDS ORDERED: Vitamin B-121000 MCG PO (14:19)
[2019-10-20] MEDS ORDERED: DILT120 PO (14:20)
[2019-10-20] MEDS ORDERED: LISI5 PO (14:21)
[2019-10-20] MEDS ORDERED: DONEPEZIL HCL10 MG PO (14:21)
[2019-10-20] MEDS ORDERED: LEVE500 PO (14:21)
[2019-10-20] MEDS ORDERED: MULTI VITAMIN1 EACH PO (14:22)
[2019-10-20] MEDS ORDERED: ASMANEX220 MC8 INH (14:23)
[2019-10-20] MEDS ORDERED: STIOLTO RESPIMAT4 G1 INH (14:23)
[2019-10-20] MEDS ORDERED: PHENYTOIN SODI100 MG PO (14:25)
[2019-10-20] MEDS ORDERED: WARF2.5 PO (14:26)
[2019-10-20] MEDS ORDERED: ENOX80I SC (14:28)
[2019-10-20] MEDS ORDERED: Colace100 MG PO (14:29)
[2019-10-20] MEDS ORDERED: [UNRECOGNIZED DRUG - OTHER] PO (14:30)
== END 2019-10-20 01:15 | disposition home or self-care (01) ==
LOC: ER 23:30
PROVIDERS: Physician Assistant
DX: J44.1 Chronic obstructive pulmonary disease with (acute) exacerbation (principal); I48.91 Unspecified atrial fibrillation; Z79.82 Long term (current) use of aspirin; Z79.01 Long term (current) use of anticoagulants; Z79.899 Other long term (current) drug therapy; Z87.891 Personal history of nicotine dependence
CPT/HCPCS: 36415; 71045; 80048; 85025; 93005; 93010; 94640; 94644; 96374; 99285-25; J2930

== ENCOUNTER 2019-10-20 10:42 | Inpatient (IN) | payer OTHER, MEDICARE ==
[~2019-10-20] VITALS: Ht 167.6 cm; Wt 84.1 kg
[2019-10-20 11:17] LABS: BASOPHILS ABSOLUTE AUTO 0.03 K/mm3 (0.00-0.23); BASOPHILS PERCENT AUTO 1 % (0-2); EOSINOPHILS ABSOLUTE AUTO 0.11 K/mm3 (0.00-0.68); EOSINOPHILS PERCENT AUTO 2 % (0-6); Hemoglobin 14.2 g/dL (13.5-17.5); IMMATURE GRAN ABSOLUTE AUTO 0.01 K/mm3 (0.00-0.10); IMMATURE GRAN PERCENT AUTO 0 % (0-1); LYMPHOCYTES ABSOLUTE AUTO 1.87 K/mm3 (0.84-5.20); LYMPHOCYTES PERCENT AUTO 30 % (21-46); MONOCYTES ABSOLUTE AUTO 0.57 K/mm3 (0.16-1.47); MONOCYTES PERCENT AUTO 9 % (4-13); Mean Corpuscular HGB 32.1 pg (26.0-34.0); Mean Corpuscular Volume 97 fL (80-100); Mean Platelet Volume 8.4 fL (9.1-12.4); NEUTROPHILS PERCENT AUTO 58 % (41-73); Platelet Count 261 K/mm3 (150-400); RDW Coefficient Variation 13.4 % (11.7-14.2); RDW Standard Deviation 48.3 fL (35.1-46.3); Red Blood Cell Count 4.42 M/mm3 (4.30-5.90); White Blood Cell Count 6.19 K/mm3 (4.00-11.30)
[2019-10-20 11:34] LABS: Alanine Aminotransfer (ALT/SGP 35 U/L (12-78); Albumin, Blood 3.7 g/dL (3.4-5.0); Albumin/Globulin Ratio 1.1 (0.8-1.8); Alk Phos 113 U/L (50-136); Anion Gap 7 mmol/L (6-16); Aspartate Aminotrans (AST/SGOT 14 U/L (12-37); Bilirubin, Total 0.4 mg/dL (0.1-1.0); Blood Urea Nitrogen 12 mg/dL (8-24); Bun/Creatinine Ratio 13.9 (12.0-20.0); CO2, Blood 24 mmol/L (21-32); Calcium, Blood 8.6 mg/dL (8.5-10.1); Chloride, Blood 107 mmol/L (98-108); Creatinine, Blood 0.87 mg/dL (0.60-1.20); Globulin, Blood 3.4 g/dL (2.2-4.0); Glomerular Filtration Rate >60 (60-); Glucose, Blood 96 mg/dL (70-99); International Normalized Ratio 1.1; Potassium, Blood 4.5 mmol/L (3.5-5.5); Prothrombin Time Results 11.7 Sec (9.7-11.5); Sodium, Blood 138 mmol/L (136-145); Total Protein, Blood 7.1 g/dL (6.4-8.2); Troponin I <0.015 ng/mL (0.000-0.040)
[2019-10-20] MEDS ORDERED: ALBU2.5V5 NEB (14:15)
[2019-10-20] MEDS ORDERED: Aspirin EC81 MG PO (14:16)
[2019-10-20] MEDS ORDERED: ALBU90OI INH (14:16)
[2019-10-20] MEDS ORDERED: ATOR10 PO (14:17)
[2019-10-20] MEDS ORDERED: BUDESONIDE0.5 MG/2 M NEB (14:18)
[2019-10-20] MEDS ORDERED: Vitamin D2000 UNIT PO (14:19)
[2019-10-20] MEDS ORDERED: Vitamin B-121000 MCG PO (14:19)
[2019-10-20] MEDS ORDERED: DILT120 PO (14:20)
[2019-10-20] MEDS ORDERED: LISI5 PO (14:21)
[2019-10-20] MEDS ORDERED: DONEPEZIL HCL10 MG PO (14:21)
[2019-10-20] MEDS ORDERED: LEVE500 PO (14:21)
[2019-10-20] MEDS ORDERED: MULTI VITAMIN1 EACH PO (14:22)
[2019-10-20] MEDS ORDERED: STIOLTO RESPIMAT4 G1 INH (14:23)
[2019-10-20] MEDS ORDERED: ASMANEX220 MC8 INH (14:23)
[2019-10-20] MEDS ORDERED: PHENYTOIN SODI100 MG PO (14:25)
[2019-10-20] MEDS ORDERED: WARF2.5 PO (14:26)
[2019-10-20] MEDS ORDERED: ENOX80I SC (14:28)
[2019-10-20] MEDS ORDERED: Colace100 MG PO (14:29)
[2019-10-20] MEDS ORDERED: [UNRECOGNIZED DRUG - OTHER] PO (14:30)
--- NOTE | 2019-10-20 15:40 | NUR ---
pt arrived to pcu via gurney from ed, in attendence, pt a/ox3, pleasant and cooperative with care, follows commands well, denies pain at this time, states he was suppose to get 02 for home, but va is taking time. lungs are clear in upper arenas, very dim in bases, with faint insp wheeze, no cough noted, hrr, tele in place running aflutter per monitor, see strip, he comes to room on a cardizem gtt at 15mls/hr, his rate is in the 70's, so turned him down to 5mls/hr, he is recieving a breathing tx at this time, +2 edema noted to b/l le, ppp+2, cap refill <3sec, vs stable, afebrile, iv site is clear na patent, btx4, abd flat soft nontender, voids without diff, skin frail, c/w/d, maew, anjum, call light in reach.
--- NOTE | 2019-10-20 18:07 | NUR ---
stopped cardizem gtt and started him on oral, takes meds without diff, no complaints, or needs, eating dinner, call light in reach.
--- NOTE | 2019-10-20 22:52 | NUR ---
ASSUMED CARE OF PATIENT AT APPROXIMATELY 1915 FROM MOSES Hodge RN. PATIENT ALERT AND ORIENTED X4; SBA OUT OF BED; FORGETFUL; HX OF DEMENTIA. PATIENT DENIES PAIN, NUMBNESS, TINGLING, DIZZINESS OR NAUSEA. REPORTS DSYPNEA W/ ACTIVITY AT BASELINE; WHEEZES IN BASES. AFIB ON TELE; RATE 120'S AT SHIFT CHANGE; LOPRESSOR IV GIVEN PER ORDER; NO ORDER FOR CARDIZEM GTT; GOOD RESULTS IN 90-100'S; OXYGEN SATURATION ABOVE 90% ON ROOM AIR. DNR BAND PLACED. PATIENT CURRENTLY IN BED; CALL LIGHT IN REACH; BED IN LOWEST POSISTION; BED ALARM ON; WILL CONTINUE TO MONITOR AND ASSESS UNTIL END OF SHIFT.
--- NOTE | 2019-10-20 23:23 | NUR ---
HEART RATE INCREASES TO 130'S WHEN USING URINAL; ASYMPTOMATIC; RECOVERS WITHIN 3 MINUTES.
--- NOTE | 2019-10-21 03:16 | NUR ---
CALLED DR. DIAZ TO REPORT PATIENT AFIB IN 130'S; 3X PRN IV LOPRESSOR GIVEN AND HEART RATE BACK UP TO 130'S; BLOOD PRESSURE STABLE; PATIENT ASYMPTOMATIC.
[2019-10-21 04:19] LABS: BASOPHILS ABSOLUTE AUTO 0.01 K/mm3 (0.00-0.23); BASOPHILS PERCENT AUTO 0 % (0-2); EOSINOPHILS PERCENT AUTO 0 % (0-6); Hematocrit 45.5 % (37.0-53.0); Hemoglobin 15.1 g/dL (13.5-17.5); IMMATURE GRAN ABSOLUTE AUTO 0.03 K/mm3 (0.00-0.10); IMMATURE GRAN PERCENT AUTO 0 % (0-1); LYMPHOCYTES ABSOLUTE AUTO 1.24 K/mm3 (0.84-5.20); LYMPHOCYTES PERCENT AUTO 16 % (21-46); MONOCYTES ABSOLUTE AUTO 0.18 K/mm3 (0.16-1.47); MONOCYTES PERCENT AUTO 2 % (4-13); Mean Corpuscular HGB 32.3 pg (26.0-34.0); Mean Corpuscular HGB Conc 33.2 g/dL (31.5-36.5); Mean Corpuscular Volume 97 fL (80-100); Mean Platelet Volume 8.6 fL (9.1-12.4); NEUTROPHILS PERCENT AUTO 81 % (41-73); Platelet Count 277 K/mm3 (150-400); RDW Coefficient Variation 13.3 % (11.7-14.2); RDW Standard Deviation 47.5 fL (35.1-46.3); Red Blood Cell Count 4.67 M/mm3 (4.30-5.90); White Blood Cell Count 7.66 K/mm3 (4.00-11.30)
[2019-10-21 04:46] LABS: Anion Gap 7 mmol/L (6-16); Blood Urea Nitrogen 19 mg/dL (8-24); Bun/Creatinine Ratio 20.3 (12.0-20.0); CO2, Blood 25 mmol/L (21-32); Calcium, Blood 8.9 mg/dL (8.5-10.1); Chloride, Blood 104 mmol/L (98-108); Creatinine, Blood 0.94 mg/dL (0.60-1.20); Glomerular Filtration Rate >60 (60-); Glucose, Blood 122 mg/dL (70-99); Potassium, Blood 4.7 mmol/L (3.5-5.5); Sodium, Blood 136 mmol/L (136-145)
--- NOTE | 2019-10-21 15:46 | NUR ---
Spoke with Dr. Arriaga in the unit at this time. Informed her of the pt's persistent atrial flutter, 138-144 bpm. New order received for IV digoxin.
--- NOTE | 2019-10-21 18:41 | NUR ---
summary The pt's has had no complaints of discomfort, pain or other voiced concerns. His vital signs have been stable except for his heart rate, which per the library monitor tech, has been atrial flutter steadily at 138-145 nearly the entire shift. He was given IV metoprolol this morning, which only resulted in a 20 minute decrease in his heart rate. AFter this amiodarone bolud and gtt was ordered but no change in heart rate/rhythm. This evening his blood pressure remains stable. Dr. Arriaga ordered IV digoxin, but the heart rate was unresponsive to this, either, remaining in the 138-144 range. IV metoprolol was given per PRN orders, and heart rate did drop to 98 bpm and blood pressure remained stable. At this time, the heart rate remains 101 bpm, atrial fibrillation.
--- NOTE | 2019-10-21 18:52 | NUR ---
Pt states that his dry cough is making it hard to him to breathe. He was given tessalon perles as ordered, and also RT was called to bring him a ventolin treatment as he does sound wheezy right now.
--- NOTE | 2019-10-21 21:45 | NUR ---
PHYSICIAN NOTIFIED PHYSICIAN NOTIFIED OF HR OF 122. PHYSICIAN PRESCRIBED 5 MG METOPROLOL IV. PT'S HR LOWERED TO 90 AND BP REMAINED STABLE AT 108/74 30 MINUTES AFTER MEDICATION WAS GIVEN.
[2019-10-22 04:39] LABS: BASOPHILS ABSOLUTE AUTO 0.02 K/mm3 (0.00-0.23); BASOPHILS PERCENT AUTO 0 % (0-2); EOSINOPHILS ABSOLUTE AUTO 0.03 K/mm3 (0.00-0.68); EOSINOPHILS PERCENT AUTO 0 % (0-6); Hematocrit 45.5 % (37.0-53.0); IMMATURE GRAN ABSOLUTE AUTO 0.05 K/mm3 (0.00-0.10); IMMATURE GRAN PERCENT AUTO 0 % (0-1); LYMPHOCYTES ABSOLUTE AUTO 2.04 K/mm3 (0.84-5.20); LYMPHOCYTES PERCENT AUTO 15 % (21-46); MONOCYTES ABSOLUTE AUTO 1.14 K/mm3 (0.16-1.47); MONOCYTES PERCENT AUTO 9 % (4-13); Mean Corpuscular HGB 31.7 pg (26.0-34.0); Mean Corpuscular Volume 96 fL (80-100); Mean Platelet Volume 8.5 fL (9.1-12.4); NEUTROPHILS ABSOLUTE AUTO 9.93 K/mm3 (1.96-9.15); NEUTROPHILS PERCENT AUTO 75 % (41-73); Platelet Count 273 K/mm3 (150-400); RDW Coefficient Variation 13.1 % (11.7-14.2); RDW Standard Deviation 46.5 fL (35.1-46.3); Red Blood Cell Count 4.73 M/mm3 (4.30-5.90); White Blood Cell Count 13.21 K/mm3 (4.00-11.30)
[2019-10-22 04:54] LABS: International Normalized Ratio 1.07; Prothrombin Time Results 11.4 Sec (9.7-11.5)
[2019-10-22 05:08] LABS: Alanine Aminotransfer (ALT/SGP 48 U/L (12-78); Albumin, Blood 3.5 g/dL (3.4-5.0); Alk Phos 111 U/L (50-136); Anion Gap 6 mmol/L (6-16); Aspartate Aminotrans (AST/SGOT 33 U/L (12-37); Bilirubin, Total 0.3 mg/dL (0.1-1.0); Blood Urea Nitrogen 30 mg/dL (8-24); Bun/Creatinine Ratio 28.6 (12.0-20.0); CO2, Blood 28 mmol/L (21-32); Calcium, Blood 8.6 mg/dL (8.5-10.1); Chloride, Blood 100 mmol/L (98-108); Creatinine, Blood 1.05 mg/dL (0.60-1.20); Globulin, Blood 3.6 g/dL (2.2-4.0); Glomerular Filtration Rate >60 (60-); Glucose, Blood 92 mg/dL (70-99); Magnesium, Blood 2.2 mg/dL (1.6-2.4); Potassium, Blood 4.2 mmol/L (3.5-5.5); Sodium, Blood 134 mmol/L (136-145); Thyroid Stimulating Hormone 0.465 uIU/mL (0.360-4.800); Total Protein, Blood 7.1 g/dL (6.4-8.2)
--- NOTE | 2019-10-22 06:50 | NUR ---
SHIFT SUMMARY PT SLEPT T/O SHIFT. PT REPORTED SOB AND PAIN IN THE ABDOMEN AND BUTTOCKS. RT NOTIFIED FOR SOB. MEDICATIONS GIVEN PER EMAR. REPOSITIONED NEEDED FOR COMFORT. PT REPORTS PAIN RELIEF WITH THESE INTERVENTIONS. PT HR STABLE IN 60'S. O2 SATURATION ABOVE 92% ON RA. BP STABLE. PT REPORTS NO CHEST PAIN OR PRESSURE. WILL CONTINUE TO MONITOR UNTIL REPORT GIVEN TO ONCOMING DAYSHIFT RN.
[2019-10-22 10:48] LABS: Source, Urine Clean Catch
[2019-10-22 10:57] LABS: Bilirubin, Urine Neg (Neg); Blood, Urine Neg (Neg); Glucose Qualitative, Urine Neg (Neg); Ketones, Urine Neg (Neg); Leukocyte Esterase, Urine Neg (Neg); Nitrite, Urine Neg (Neg); Protein, Urine Neg (Neg); Urobilinogen, Urine NORM (Normal)
[2019-10-22 10:58] LABS: Appearance, Urine Clear (Clear); Color, Urine Yellow (P-Yellow)
--- NOTE | 2019-10-22 17:46 | NUR ---
SHIFT SUMMARY PT A&Ox3; FORGETFUL AT TIMES. PT RESTING IN BED DURING GSHIFT. UP 1 PERSON ASSIST IN ROOM. PT SOB AT REST; SPO2 >94% ON RA; LS WHEEZING; RT FOR BREATHING TREATMENTS. PT DENIES PAIN, CHEST PAIN, NAUSEA AND DIZZINESS T/O SHIFT. PT ON AMIODARONE GTT THIS AM; DISOCNITNUED PER ORDERS. PT RECEIVING PO AND IV LOPRESSOR AND WILL START MOLTAQ THIS EVENING. OTHER VSS. NO OTHER ACUTE CHANGGES NOTED DURING SHIFT. WILL CONTINUE TO MONITOR UNTIL REPORT GIVEN TO ONCOMING RN.
[2019-10-23 04:07] LABS: BASOPHILS ABSOLUTE AUTO 0.01 K/mm3 (0.00-0.23); BASOPHILS PERCENT AUTO 0 % (0-2); EOSINOPHILS PERCENT AUTO 0 % (0-6); Hematocrit 48.5 % (37.0-53.0); Hemoglobin 16.2 g/dL (13.5-17.5); IMMATURE GRAN ABSOLUTE AUTO 0.06 K/mm3 (0.00-0.10); IMMATURE GRAN PERCENT AUTO 0 % (0-1); LYMPHOCYTES ABSOLUTE AUTO 1.11 K/mm3 (0.84-5.20); LYMPHOCYTES PERCENT AUTO 8 % (21-46); MONOCYTES ABSOLUTE AUTO 0.47 K/mm3 (0.16-1.47); MONOCYTES PERCENT AUTO 4 % (4-13); Mean Corpuscular HGB Conc 33.4 g/dL (31.5-36.5); Mean Corpuscular Volume 96 fL (80-100); Mean Platelet Volume 8.7 fL (9.1-12.4); NEUTROPHILS ABSOLUTE AUTO 11.75 K/mm3 (1.96-9.15); NEUTROPHILS PERCENT AUTO 88 % (41-73); Platelet Count 259 K/mm3 (150-400); RDW Coefficient Variation 13.1 % (11.7-14.2); RDW Standard Deviation 46.6 fL (35.1-46.3); Red Blood Cell Count 5.06 M/mm3 (4.30-5.90)
[2019-10-23 04:22] LABS: International Normalized Ratio 1.44; Prothrombin Time Results 15.1 Sec (9.7-11.5)
[2019-10-23 04:26] LABS: Alanine Aminotransfer (ALT/SGP 60 U/L (12-78); Albumin, Blood 3.6 g/dL (3.4-5.0); Albumin/Globulin Ratio 0.9 (0.8-1.8); Alk Phos 118 U/L (50-136); Anion Gap 6 mmol/L (6-16); Aspartate Aminotrans (AST/SGOT 35 U/L (12-37); Bilirubin, Total 0.4 mg/dL (0.1-1.0); Blood Urea Nitrogen 28 mg/dL (8-24); Bun/Creatinine Ratio 28.5 (12.0-20.0); CO2, Blood 26 mmol/L (21-32); Calcium, Blood 8.7 mg/dL (8.5-10.1); Chloride, Blood 102 mmol/L (98-108); Creatinine, Blood 0.98 mg/dL (0.60-1.20); Glomerular Filtration Rate >60 (60-); Glucose, Blood 100 mg/dL (70-99); Potassium, Blood 5.1 mmol/L (3.5-5.5); Sodium, Blood 134 mmol/L (136-145); Total Protein, Blood 7.6 g/dL (6.4-8.2)
--- NOTE | 2019-10-23 05:49 | NUR ---
SHIFT SUMMARY PT SLEPT T/O SHIFT. IV METOPROLOL GIVEN PRN IF TACHYCARDIC. PT'S HR RESPONDED WELL TO CARDIAC MEDICATIONS. HR MAINTAINED BELOW 100. PT REPORTS DECREASE IN BACK PAIN WITH HEATING PAD AND REPOSITIONING. VS REMAINED STABLE T/O SHIFT. PT REPORTS NO CP OR PRESSURE. WILL CONTINUE TO MONITOR UNTIL REPORT GIVEN TO DAYSHIFT RN.
--- NOTE | 2019-10-23 17:33 | NUR ---
SHIFT SUMMARY PT A&Ox3; FORGETFUL AT TIMES. PT UP IN CHAIR FOR MAJORITY OF SHIFT. PT REPORTS LOWER BACK PAIN THIS AFTENROON, REPOSITIONED PT UP TO BED, AND MEDICATED x1 WITH TYLENOL, WITH POSITIVE RESULTS. PER TELE PT HR 80-140'S MEDICATED WITH SCHEDULED AND x1 PRN METOPROLOL. EKG COMPLETED THIS AM; NOTIFIED DR BUCK AND DR GREEN OF RESULTS. PT SOB WITH EXERTION AND AT REST AT TIMES; BREATHING TREATMENTS PER RT; SPO2>90% ON RA. PT VSS. NO OTHER ACUTE CHANGES NOTED DURING SHIFT. WILL CONTINUE TO MONITOR UNITL REPORT GIVEN TO ONCOMING RN.
[2019-10-24 04:29] LABS: BASOPHILS ABSOLUTE AUTO 0.01 K/mm3 (0.00-0.23); BASOPHILS PERCENT AUTO 0 % (0-2); EOSINOPHILS ABSOLUTE AUTO 0.01 K/mm3 (0.00-0.68); EOSINOPHILS PERCENT AUTO 0 % (0-6); Hematocrit 48.6 % (37.0-53.0); Hemoglobin 16.1 g/dL (13.5-17.5); IMMATURE GRAN ABSOLUTE AUTO 0.03 K/mm3 (0.00-0.10); IMMATURE GRAN PERCENT AUTO 0 % (0-1); LYMPHOCYTES ABSOLUTE AUTO 1.25 K/mm3 (0.84-5.20); LYMPHOCYTES PERCENT AUTO 12 % (21-46); MONOCYTES ABSOLUTE AUTO 0.41 K/mm3 (0.16-1.47); MONOCYTES PERCENT AUTO 4 % (4-13); Mean Corpuscular HGB 31.8 pg (26.0-34.0); Mean Corpuscular HGB Conc 33.1 g/dL (31.5-36.5); Mean Corpuscular Volume 96 fL (80-100); Mean Platelet Volume 8.6 fL (9.1-12.4); NEUTROPHILS ABSOLUTE AUTO 8.78 K/mm3 (1.96-9.15); NEUTROPHILS PERCENT AUTO 84 % (41-73); Platelet Count 305 K/mm3 (150-400); RDW Coefficient Variation 13.1 % (11.7-14.2); RDW Standard Deviation 46.4 fL (35.1-46.3); Red Blood Cell Count 5.06 M/mm3 (4.30-5.90); White Blood Cell Count 10.49 K/mm3 (4.00-11.30)
[2019-10-24 04:43] LABS: International Normalized Ratio 2.49; Prothrombin Time Results 25.3 Sec (9.7-11.5)
[2019-10-24 04:47] LABS: Albumin, Blood 3.6 g/dL (3.4-5.0); Anion Gap 4 mmol/L (6-16); Blood Urea Nitrogen 32 mg/dL (8-24); CO2, Blood 27 mmol/L (21-32); Calcium, Blood 8.5 mg/dL (8.5-10.1); Chloride, Blood 103 mmol/L (98-108); Creatinine, Blood 0.97 mg/dL (0.60-1.20); Glomerular Filtration Rate >60 (60-); Glucose, Blood 104 mg/dL (70-99); Magnesium, Blood 2.2 mg/dL (1.6-2.4); Phosphorus, Blood 4.1 mg/dL (2.5-4.9); Potassium, Blood 5.1 mmol/L (3.5-5.5); Sodium, Blood 134 mmol/L (136-145)
--- NOTE | 2019-10-24 07:22 | NUR ---
SHIFT SUMMARY PATIENT PLEASENT AND COOPERATIVE THROUGHOUT THE NIGHT. PATIENT FORGETFUL AT TIMES BUT EASILY REORIENTS. PATIENT APPEARED TO SLEEP WELL LAST NIGHT. PATIENT USED THE HEATING PAD FOR PAIN RELIEF, PATIENT APPEARED VERY COMFORTABLE AND APPEARED TO BE ABLE TO SLEEP WELL THROUGHOUT THE NIGHT. VITAL SIGNS CHARTED. PATIENT VERY CHEERFUL AND APPEARED TO ENJOY TALKING AND ENTERACTING WITH STAFF. REPORT GIVEN TO ONCOMING RN.
[2019-10-24] MEDS ORDERED: DRON400T (12:08)
[2019-10-24] MEDS ORDERED: METO50 PO (12:09)
== END 2019-10-24 13:34 | disposition home or self-care (01) | DRG 308 ==
LOC: ER 10:42 → MEDS 13:07 → PCU 13:07 → ENPENDDIS 10-24 10:47 → PCU 10-24 13:34
PROVIDERS: Emergency Medicine; Internal Medicine; Nurse Practitioner Acute Care; ADMIT Internal Medicine
DX: I48.91 Unspecified atrial fibrillation (principal); J96.01 Acute respiratory failure with hypoxia; J96.02 Acute respiratory failure with hypercapnia; J44.1 Chronic obstructive pulmonary disease with (acute) exacerbation; I10 Essential (primary) hypertension; G40.909 Epilepsy, unspecified, not intractable, without status epilepticus; E78.5 Hyperlipidemia, unspecified; F43.10 Post-traumatic stress disorder, unspecified; F03.90 Unspecified dementia, unspecified severity, without behavioral disturbance, psychotic disturbance, mood disturbance, and anxiety; I08.1 Rheumatic disorders of both mitral and tricuspid valves; Z79.82 Long term (current) use of aspirin; Z79.01 Long term (current) use of anticoagulants
CPT/HCPCS: 36415; 71045; 71250; 74176; 80048; 80053; 80069; 81003; 83735; 83880; 84443; 84484; 85025; 85610; 93005; 93010; 93306; 94640; 94760; 96374; 96375; 97116; 97161; 99285-25; A9270; A9270-GY; J0282; J1160; J1940; J2920; J2930; J7060

== ENCOUNTER 2019-11-12 03:13 | Emergency (ER) | payer OTHER, MEDICARE ==
[~2019-11-12] VITALS: Ht 167.6 cm; Wt 87.1 kg
[~2019-11-12 03:13] MED LIST changes: +ALBU2.5V5 NEB; +ASMANEX220 MC8 INH; +ATOR10 PO; +Aspirin EC81 MG PO; +BUDESONIDE0.5 MG/2 M NEB; +Colace100 MG PO; +DONEPEZIL HCL10 MG PO; +DRON400T; +LEVE500 PO; +METO50 PO; +MULTI VITAMIN1 EACH PO; +PHENYTOIN SODI100 MG PO; +STIOLTO RESPIMAT4 G1 INH; +Vitamin B-121000 MCG PO; +Vitamin D2000 UNIT PO; +[UNRECOGNIZED DRUG - OTHER] PO
[2019-11-12 04:25] LABS: BASOPHILS ABSOLUTE AUTO 0.03 K/mm3 (0.00-0.23); BASOPHILS PERCENT AUTO 0 % (0-2); EOSINOPHILS ABSOLUTE AUTO 1.09 K/mm3 (0.00-0.68); EOSINOPHILS PERCENT AUTO 14 % (0-6); Hematocrit 45.5 % (37.0-53.0); IMMATURE GRAN ABSOLUTE AUTO 0.02 K/mm3 (0.00-0.10); IMMATURE GRAN PERCENT AUTO 0 % (0-1); LYMPHOCYTES ABSOLUTE AUTO 2.08 K/mm3 (0.84-5.20); LYMPHOCYTES PERCENT AUTO 26 % (21-46); MONOCYTES ABSOLUTE AUTO 0.76 K/mm3 (0.16-1.47); MONOCYTES PERCENT AUTO 10 % (4-13); Mean Corpuscular HGB 31.8 pg (26.0-34.0); Mean Corpuscular Volume 97 fL (80-100); Mean Platelet Volume 8.3 fL (9.1-12.4); NEUTROPHILS ABSOLUTE AUTO 3.91 K/mm3 (1.96-9.15); NEUTROPHILS PERCENT AUTO 50 % (41-73); Platelet Count 234 K/mm3 (150-400); RDW Coefficient Variation 12.7 % (11.7-14.2); RDW Standard Deviation 45.5 fL (35.1-46.3); Red Blood Cell Count 4.71 M/mm3 (4.30-5.90); White Blood Cell Count 7.89 K/mm3 (4.00-11.30)
[2019-11-12 04:53] LABS: Alanine Aminotransfer (ALT/SGP 42 U/L (12-78); Albumin, Blood 3.6 g/dL (3.4-5.0); Alk Phos 131 U/L (50-136); Anion Gap 2 mmol/L (6-16); Aspartate Aminotrans (AST/SGOT 27 U/L (12-37); Bilirubin, Total 0.3 mg/dL (0.1-1.0); Blood Urea Nitrogen 10 mg/dL (8-24); Bun/Creatinine Ratio 12.8 (12.0-20.0); CO2, Blood 29 mmol/L (21-32); Calcium, Blood 8.8 mg/dL (8.5-10.1); Chloride, Blood 104 mmol/L (98-108); Creatinine, Blood 0.78 mg/dL (0.60-1.20); Globulin, Blood 3.7 g/dL (2.2-4.0); Glomerular Filtration Rate >60 (60-); Glucose, Blood 100 mg/dL (70-99); Potassium, Blood 4.8 mmol/L (3.5-5.5); Sodium, Blood 135 mmol/L (136-145); Total Protein, Blood 7.3 g/dL (6.4-8.2); Troponin I <0.015 ng/mL (0.000-0.040)
[2019-11-12] MEDS ORDERED: Prednisone20 MG PO (05:45)
== END 2019-11-12 06:15 | disposition home or self-care (01) ==
LOC: ER 03:13
PROVIDERS: Emergency Medicine
DX: J44.1 Chronic obstructive pulmonary disease with (acute) exacerbation (principal); F43.10 Post-traumatic stress disorder, unspecified; I10 Essential (primary) hypertension; E78.5 Hyperlipidemia, unspecified; G40.909 Epilepsy, unspecified, not intractable, without status epilepticus; F03.90 Unspecified dementia, unspecified severity, without behavioral disturbance, psychotic disturbance, mood disturbance, and anxiety; Z87.891 Personal history of nicotine dependence; Z91.041 Radiographic dye allergy status; Z79.82 Long term (current) use of aspirin; Z79.899 Other long term (current) drug therapy; Z79.51 Long term (current) use of inhaled steroids; Z79.01 Long term (current) use of anticoagulants; Z20.828 Contact with and (suspected) exposure to other viral communicable diseases
CPT/HCPCS: 36415; 71045; 80053; 83735; 83880; 84484; 85025; 93005; 93010; 94640; 99285-25; J7512; U0003

== ENCOUNTER 2020-02-03 09:53 | Inpatient (IN) | payer OTHER, MEDICARE ==
[~2020-02-03] VITALS: Ht 167.6 cm; Wt 88.3 kg
[~2020-02-03 09:53] MED LIST changes: -DRON400T; +DRON400T PO
[2020-02-03 11:04] LABS: BASOPHILS ABSOLUTE AUTO 0.02 K/mm3 (0.00-0.23); BASOPHILS PERCENT AUTO 0 % (0-2); EOSINOPHILS ABSOLUTE AUTO 0.57 K/mm3 (0.00-0.68); EOSINOPHILS PERCENT AUTO 8 % (0-6); Hematocrit 45.1 % (37.0-53.0); Hemoglobin 14.5 g/dL (13.5-17.5); IMMATURE GRAN ABSOLUTE AUTO 0.02 K/mm3 (0.00-0.10); IMMATURE GRAN PERCENT AUTO 0 % (0-1); LYMPHOCYTES ABSOLUTE AUTO 1.44 K/mm3 (0.84-5.20); LYMPHOCYTES PERCENT AUTO 19 % (21-46); MONOCYTES ABSOLUTE AUTO 0.67 K/mm3 (0.16-1.47); MONOCYTES PERCENT AUTO 9 % (4-13); Mean Corpuscular HGB Conc 32.2 g/dL (31.5-36.5); Mean Corpuscular Volume 96 fL (80-100); Mean Platelet Volume 8.3 fL (9.1-12.4); NEUTROPHILS ABSOLUTE AUTO 4.86 K/mm3 (1.96-9.15); NEUTROPHILS PERCENT AUTO 64 % (41-73); Platelet Count 224 K/mm3 (150-400); RDW Coefficient Variation 13.2 % (11.7-14.2); RDW Standard Deviation 47.1 fL (35.1-46.3); Red Blood Cell Count 4.68 M/mm3 (4.30-5.90); White Blood Cell Count 7.58 K/mm3 (4.00-11.30)
[2020-02-03 11:25] LABS: Alanine Aminotransfer (ALT/SGP 41 U/L (12-78); Albumin, Blood 3.4 g/dL (3.4-5.0); Albumin/Globulin Ratio 0.9 (0.8-1.8); Alk Phos 138 U/L (50-136); Anion Gap 5 mmol/L (6-16); Aspartate Aminotrans (AST/SGOT 25 U/L (12-37); Bilirubin, Total 0.6 mg/dL (0.1-1.0); Blood Urea Nitrogen 16 mg/dL (8-24); Bun/Creatinine Ratio 22.9 (12.0-20.0); CO2, Blood 29 mmol/L (21-32); Calcium, Blood 8.7 mg/dL (8.5-10.1); Chloride, Blood 104 mmol/L (98-108); Globulin, Blood 3.8 g/dL (2.2-4.0); Glomerular Filtration Rate >60 (60-); Glucose, Blood 93 mg/dL (70-99); Potassium, Blood 4.2 mmol/L (3.5-5.5); Sodium, Blood 138 mmol/L (136-145); Total Protein, Blood 7.2 g/dL (6.4-8.2); Troponin I <0.015 ng/mL (0.000-0.040)
[2020-02-03] MEDS ORDERED: FUROSEMIDE40 MG PO (11:30)
[2020-02-03] MEDS ORDERED: ELIQUIS5 MG PO (11:30)
--- NOTE | 2020-02-03 18:40 | NUR ---
PATIENT ARRIVED TO UNIT FROM ED VIA GURNEY, TRANSFERED TO BED VIA SLIDER. PATIENT HAS AUDIBLE WHEEZES, EXPIRATORY WHEEZE IN ALL LOBES, O2 SATS IN 93-96. VSS, PATIENT IS ALERT AND ORIENTED, NO SIGNS OF ACUTE DISTRESS, DENIES PAIN, DENIES CHEST PAIN/PRESSURE.
--- NOTE | 2020-02-03 21:03 | NUR ---
CARE ASSUMPTION UPON CARE ASSUMPTION, PT A&OX3. PT HAS HX OF DEMENTIA, BUT ANSWERED QUESTIONS APPROPRIATELY, ORIENTED TO TIME, FAMILY, SELF, AND STAFF. SP02>92% ON RA. PT TACHYPENIC. WHILE CHANGING PANTS INTO HOSPITAL PANTS IN BED W/ NURSE ASSISTANCE, PT HAD TO TAKE LONG BREAKS TO REST. LUNGS SOUND TIGHT, W/ EXP WHEEZES. PT HAS MODERATE EDEMA IN FEET/BLE. PT STATES IT "COMES AND GOES" AND THAT HE IS "CAREFUL" ABOUT HIS FLUID INTAKE. TELEMETRY READS A FLUTTER, HR 90'S-110'S. CARDIZEM DRIP INFUSING AT 5 GTT PER EMAR. PT DENIES CP/PRESSURE. PT ABLE TO TURN SELF IN BED. PT USED URINAL AT BEDSIDE TO VOID. PT ORIENTED TO ROOM AND CALL LIGHT. CALL LIGHT IN REACH. PT NOW RESTING IN ROOM. WILL CONTINUE TO MONITOR.
[2020-02-04 03:45] LABS: BASOPHILS ABSOLUTE AUTO 0.01 K/mm3 (0.00-0.23); BASOPHILS PERCENT AUTO 0 % (0-2); EOSINOPHILS PERCENT AUTO 0 % (0-6); Hematocrit 45.5 % (37.0-53.0); Hemoglobin 14.4 g/dL (13.5-17.5); IMMATURE GRAN ABSOLUTE AUTO 0.01 K/mm3 (0.00-0.10); IMMATURE GRAN PERCENT AUTO 0 % (0-1); LYMPHOCYTES ABSOLUTE AUTO 0.61 K/mm3 (0.84-5.20); LYMPHOCYTES PERCENT AUTO 9 % (21-46); MONOCYTES ABSOLUTE AUTO 0.11 K/mm3 (0.16-1.47); MONOCYTES PERCENT AUTO 2 % (4-13); Mean Corpuscular HGB 30.2 pg (26.0-34.0); Mean Corpuscular HGB Conc 31.6 g/dL (31.5-36.5); Mean Corpuscular Volume 95 fL (80-100); Mean Platelet Volume 8.4 fL (9.1-12.4); NEUTROPHILS PERCENT AUTO 90 % (41-73); Platelet Count 258 K/mm3 (150-400); RDW Coefficient Variation 12.9 % (11.7-14.2); Red Blood Cell Count 4.77 M/mm3 (4.30-5.90); White Blood Cell Count 7.04 K/mm3 (4.00-11.30)
[2020-02-04 04:04] LABS: Anion Gap 5 mmol/L (6-16); Blood Urea Nitrogen 20 mg/dL (8-24); Bun/Creatinine Ratio 27.2 (12.0-20.0); CO2, Blood 27 mmol/L (21-32); Calcium, Blood 8.9 mg/dL (8.5-10.1); Chloride, Blood 103 mmol/L (98-108); Creatinine, Blood 0.74 mg/dL (0.60-1.20); Glomerular Filtration Rate >60 (60-); Glucose, Blood 121 mg/dL (70-99); Magnesium, Blood 2.3 mg/dL (1.6-2.4); Potassium, Blood 4.7 mmol/L (3.5-5.5); Sodium, Blood 135 mmol/L (136-145)
--- NOTE | 2020-02-04 05:56 | NUR ---
SHIFT SUMMARY PT A&OX3. VSS. PT ANSWERED QUESTIONS APPROPRIATELY, ORIENTED TO TIME, FAMILY, SELF, AND STAFF. SP02>92% ON RA. PT TACHYPENIC. TELEMETRY READS A FLUTTER, HR 90'S-110'S WITH SHORT DIPS INTO THE 70'S. CARDIZEM DRIP INFUSING AT 5 GTT PER EMAR. PT DENIES CP/PRESSURE. PT ABLE TO TURN SELF IN BED. PT USED URINAL AT BEDSIDE TO VOID. PT C/O OF 9/10 R HIP PAIN. MEDICATED WITH TYLENOL PER EMAR AND PLACED HEATING PAD ON HIP ALONG WITH WARM BLANKET. PT STATES RELIEF OF PAIN. CALL LIGHT IN REACH. PT SLEPT OFF AND ON T/O NIGHT. WILL CONTINUE TO MONITOR.
--- NOTE | 2020-02-04 18:23 | NUR ---
NO ACUTE EVENTS THIS SHIFT. PATIENT VISIBLY SHORT OF BREATH AT TIMES WITH AUDIBLE WHEEZES, ENDORSED RELIEF WITH BREATHING TREATMENTS. PATIENT ALERT AND ORIENTED THIS SHIFT, PLEASANT AND COOPERATIVE WITH CARE. VSS THIS SHIFT, HR TRENDED DOWN FROM 110S AT START OF SHIFT TO 70s/80s, TRANSITIONED TO PO CARDIZEM AT 1600. PATIENT HR AT END OF SHIFT NOW 100S-110S. PLAN IS FOR NPO MIDNIGHT AND CARDIOVERSION IN MORNING. PATIENT AGREEABLE TO CARDIOVERSION PROCEDURE IN AM.
[2020-02-05 03:56] LABS: Albumin, Blood 3.4 g/dL (3.4-5.0); Anion Gap 5 mmol/L (6-16); Blood Urea Nitrogen 26 mg/dL (8-24); Bun/Creatinine Ratio 32.6 (12.0-20.0); CO2, Blood 28 mmol/L (21-32); Calcium, Blood 9.2 mg/dL (8.5-10.1); Chloride, Blood 102 mmol/L (98-108); Glomerular Filtration Rate >60 (60-); Glucose, Blood 124 mg/dL (70-99); Phosphorus, Blood 4.3 mg/dL (2.5-4.9); Potassium, Blood 4.9 mmol/L (3.5-5.5); Sodium, Blood 135 mmol/L (136-145)
--- NOTE | 2020-02-05 07:27 | NUR ---
SHIFT SUMMARY NO ACUTE CHANGES THIS SHIFT. VSS. PT AXO. AXO. REMAINS ON RA. REQUIRING PRN RT TREATMENTS FOR WHEEZING. PT VOIDING OFTEN INTO URINAL. HAS BEEN NPO SINCE MIDNIGHT. PLEASANT AND COOPERATIVE. ORAL CARDIZEM EFFECTIVE AT MAINTAINING HR IN THE 110'S. WILL CONTINUE TO MONITOR UNTIL SHIFT CHANGE.
--- NOTE | 2020-02-05 08:39 | NUR ---
Dr. Murdocketi here to see the patient. He just woke up, and has no complaints. Pt states that he has not had anything to eat or drink since midnight, because Dr. Cortez told him that he might have a cardioversion today. Pt states that Dr. Cortez told him he would be here around 9 am.
--- NOTE | 2020-02-05 10:32 | NUR ---
CARDIOVERSION: Dr. India Cortez, Respiratory therapist Lien Vo, RN Lou Bagley, RN Misty Arriaga, and RN Marina Magallanes present at 1000 am. Confirmed consent signed and pt identity confirmed per protocol. Medication administration started at 1005 using Fentanyl and Versed per kier pleater instructions, see eMAR for exact times and doses given. Shock was delivered at 1013 and pt noted to be in sinus rhythm at 80 bpm. Pt is sleeping, does not open eyes, but does respond with nodding when asked if he is feeling ok. Vital signs monitored post procedure q 10-15 min. Pt is sleeping at this time, HOB elevated with continuous oxymetry monitoring and kennel hand. Continues to show normal sinus rhythm. spo2 noted 89-90% so 1 l/min O2 delivery was started. Blood pressure stable. Respiratory rate stable at 20/min, no apnea noted. RN remains at bedside to monitor pt.
--- NOTE | 2020-02-05 10:50 | NUR ---
Dr. Cortez here to see the patient. Domingo opens his eyes but quickly falls back to sleep. Vital signs remain stable, and pt continues to be in sinus rhythm.
--- NOTE | 2020-02-05 11:00 | NUR ---
Pt awakens quickly when I talk to him. Able to sit forward without assistance when awake for removal of defibrillation pads. Falls back to sleep. HOB remains at 45 degrees, spo2 92-92% on room air. Respiratory rate even, unlabored.
--- NOTE | 2020-02-05 12:12 | NUR ---
ASSUMED CARE FROM NOC RN THIS AM. PT WAS SMILING AND JOKING WITH STAFF DURING REPORT. PT REMAINED NPO FOR HIS PLANNED CARDIOVERSION THIS MORNING. PT TOOK MORNING MEDICATIONS WITH SIPS OF WATER. PT GREW ANXIOUS AND BEGAN CYRING WHILE SETTING UP FOR THE CARDIOVERSION; STAFF COMFORTED THE PT WHILE HE PRAYED OVER THE STAFF. PT WAS GIVEN FENTYNL AND VERSED FOR THE CARDIOVERSION; DR WILSON PERFORMED THE PROCEDURE AND THE PT WAS CONVERTED TO NSR. PT IS RESTING AT THIS TIME ON 1L VIA NC HOLDING SATS ABOVE 92%; HE IS LETHARGIC BUT HAS MAINTAINED AIRWAY AND STABLE VS. PT'S WAS CALLED AND UPDATED REGARDING HIS PROGRESS.
--- NOTE | 2020-02-05 12:39 | NUR ---
Domingo awakens to conversation; asked if he would like to have some water to drink. He says that he has some here at the bedside. He says he is too sleepy to eat his lunch just now. Lunch tray saved in pantry.
--- NOTE | 2020-02-05 17:56 | NUR ---
SHIFT SUMMARY PT HAD A CARDIOVERSION COMPLETED THIS MORNING AND RETURNED TO NSR FROM AFIB. VS HAVE BEEN STABLE TODAY. PT HAS HAD SOME AUDIBLE WHEEZING ON AND OFF THROUGHOUT THE DAY THAT HAS BEEN HELPED WITH BREATHING TREATMENTS FROM RT. PT WAS VERY LETHARGIC FOR A FEW HOURS FOLLOWING THE CARDIOVERSION BUT IS NOW AWAKE AND ORIENTED. PT HAS BEEN ABLE TO EAT AND TOLERATE PO WELL. PT IS RESTING IN HIS ROOM AT THIS TIME
--- NOTE | 2020-02-06 05:20 | NUR ---
SUMMARY PATIENT IS ALERT AND ORIENTED BUT CAN BE FORGETFUL AT TIMES, REPEATEDLY ASKS THE SAME QUESTIONS. PATIENT IS PLEASANT AND COPPERATIVE WITH CARE. AMBULATES INDEPENDENTLY TO BATHROOM. 02 SATS >90% ON RA WHILE AWAKE, WHILE SLPEEING 2L VIA NC NEEDED TO KEEP PATIENT 02 SATS >90%. SIGNIFICANT EXPIRATORY WHEEZING THROUGHOUT LUNGS. PATIENT SLEPT MOST THE NIGHT. VSS, NO ACUTE CHANGES. CALL LIGHT IN REACH, BED IN LOW POSITION.
[2020-02-06] MEDS ORDERED: DILT60 PO (11:22)
[2020-02-06] MEDS ORDERED: PRED20 PO (11:23)
--- NOTE | 2020-02-06 14:12 | NUR ---
DISCHARGE PT ESCORTED OUT VIA W/C. STATES UNDERSTANDING OF IMPORTANCE OF F/U THAT WAS ARRANGED AND NEW MEDICATIONS.
== END 2020-02-06 14:17 | disposition home or self-care (01) | DRG 308 ==
LOC: ER 09:53 → PCU 18:12
PROVIDERS: Emergency Medicine; Family Medicine; ADMIT Internal Medicine
PROC: 5A2204Z Restoration of Cardiac Rhythm, Single (ICD-10-PCS; principal; 2020-02-05)
DX: I48.92 Unspecified atrial flutter (principal); I50.33 Acute on chronic diastolic (congestive) heart failure; J44.1 Chronic obstructive pulmonary disease with (acute) exacerbation; I11.0 Hypertensive heart disease with heart failure; I48.19 Other persistent atrial fibrillation; F43.10 Post-traumatic stress disorder, unspecified; J44.9 Chronic obstructive pulmonary disease, unspecified; Z87.891 Personal history of nicotine dependence; E66.9 Obesity, unspecified; Z68.32 Body mass index [BMI] 32.0-32.9, adult; F03.90 Unspecified dementia, unspecified severity, without behavioral disturbance, psychotic disturbance, mood disturbance, and anxiety; G40.909 Epilepsy, unspecified, not intractable, without status epilepticus; Z20.828 Contact with and (suspected) exposure to other viral communicable diseases
CPT/HCPCS: 36415; 71046; 80048; 80053; 80069; 83735; 83880; 84443; 84484; 85025; 92960; 93005; 93010; 94640; 94664; 94667; 94760; 94761; 94762; 96365; 96366; 96376; 98960; 99285-25; A9270; A9270-GY; J1940; J2250; J2920; J2930; J3010; J7030

== ENCOUNTER 2020-02-29 00:19 | Inpatient (IN) | payer OTHER, MEDICARE ==
[~2020-02-29] VITALS: Ht 165.1 cm; Wt 87.1 kg
[~2020-02-29 00:19] MED LIST changes: +BUDESONIDE0.5 MG/2 M INH; -BUDESONIDE0.5 MG/2 M NEB; +DILT60 PO; +ELIQUIS5 MG PO; +FUROSEMIDE40 MG PO; +PRED20 PO
[2020-02-29] MEDS ORDERED: PHENY100ER PO (00:50)
[2020-02-29] MEDS ORDERED: Colace100 MG PO (00:51)
[2020-02-29] MEDS ORDERED: ATOR20 PO (00:51)
[2020-02-29 02:00] LABS: BASOPHILS ABSOLUTE AUTO 0.02 K/mm3 (0.00-0.23); BASOPHILS PERCENT AUTO 0 % (0-2); EOSINOPHILS ABSOLUTE AUTO 0.87 K/mm3 (0.00-0.68); EOSINOPHILS PERCENT AUTO 12 % (0-6); Hematocrit 46.5 % (37.0-53.0); Hemoglobin 14.8 g/dL (13.5-17.5); IMMATURE GRAN ABSOLUTE AUTO 0.01 K/mm3 (0.00-0.10); IMMATURE GRAN PERCENT AUTO 0 % (0-1); LYMPHOCYTES ABSOLUTE AUTO 2.35 K/mm3 (0.84-5.20); LYMPHOCYTES PERCENT AUTO 31 % (21-46); MONOCYTES PERCENT AUTO 11 % (4-13); Mean Corpuscular HGB 30.1 pg (26.0-34.0); Mean Corpuscular HGB Conc 31.8 g/dL (31.5-36.5); Mean Corpuscular Volume 95 fL (80-100); Mean Platelet Volume 8.4 fL (9.1-12.4); NEUTROPHILS ABSOLUTE AUTO 3.51 K/mm3 (1.96-9.15); NEUTROPHILS PERCENT AUTO 46 % (41-73); Platelet Count 240 K/mm3 (150-400); RDW Coefficient Variation 13.2 % (11.7-14.2); RDW Standard Deviation 46.6 fL (35.1-46.3); Red Blood Cell Count 4.91 M/mm3 (4.30-5.90); White Blood Cell Count 7.56 K/mm3 (4.00-11.30)
[2020-02-29 02:20] LABS: Alanine Aminotransfer (ALT/SGP 58 U/L (12-78); Albumin, Blood 3.6 g/dL (3.4-5.0); Albumin/Globulin Ratio 0.9 (0.8-1.8); Alk Phos 155 U/L (50-136); Anion Gap 6 mmol/L (6-16); Aspartate Aminotrans (AST/SGOT 38 U/L (12-37); Bilirubin, Total 0.4 mg/dL (0.1-1.0); Blood Urea Nitrogen 11 mg/dL (8-24); Bun/Creatinine Ratio 14.1 (12.0-20.0); CO2, Blood 32 mmol/L (21-32); Calcium, Blood 8.7 mg/dL (8.5-10.1); Chloride, Blood 99 mmol/L (98-108); Creatinine, Blood 0.78 mg/dL (0.60-1.20); Globulin, Blood 3.8 g/dL (2.2-4.0); Glomerular Filtration Rate >60 (60-); Glucose, Blood 108 mg/dL (70-99); Potassium, Blood 4.2 mmol/L (3.5-5.5); Sodium, Blood 137 mmol/L (136-145); Total Protein, Blood 7.4 g/dL (6.4-8.2); Troponin I <0.015 ng/mL (0.000-0.040)
[2020-02-29 03:56] LABS: Influenza A, PCR Negative (NEGATIVE); Influenza B, PCR Negative (NEGATIVE); Resp Syncytial Virus, PCR Negative (NEGATIVE); SARS-Cov-2 (COVID-19) PCR, MMC Negative (NEGATIVE)
--- NOTE | 2020-02-29 06:32 | NUR ---
SHIFT SUMMARY PT NEW ED ADMIT THIS SHIFT. PT FEELS SHORT OF BREATH, EVEN AT REST. PT TRANSFERED FROM ED [place] TO BED, WAS STEADY ON FEET BUT SHORTNESS OF BREATH WORSENED WITH EXERTION. PT PLACED ON 2 L O2 VIA NC. O2 SATS IN THE MID 90'S. LUNG SOUNDS WHEEZY THROUGHOUT. PT'S CALLED FOR UPDATE. UPDATE GIVEN. PT IS PLEASANT AND COOPERATIVE. ALERT AND ORIENTED BUT POOR HISTORIAN. PT IS RESTING IN BED AT THIS TIME, APPEARS TO BE SLEEPING. VITAL SIGNS STABLE. WILL CONTINUE TO MONITOR AND REPORT TO DAY RN.
--- NOTE | 2020-02-29 13:40 | NUR ---
FAXED REQUEST FOR CURRENT MED LISIT TO [facility] AND [facility].
[2020-02-29] MEDS ORDERED: Aspirin EC81 MG PO (16:05)
[2020-02-29] MEDS ORDERED: Vitamin B-121000 MCG PO (16:06)
[2020-02-29] MEDS ORDERED: DONEPEZIL HCL10 MG PO (16:09)
[2020-02-29] MEDS ORDERED: METO50ER PO (16:10)
[2020-02-29] MEDS ORDERED: MOME220I INH (16:12)
[2020-02-29] MEDS ORDERED: STRIVERDI RESPIM4 G1 INH (16:13)
--- NOTE | 2020-02-29 16:45 | NUR ---
ALERT. ORIENTED. USES URINAL AT BED. TELE ON AND PER TECH SR IN 'S. HOME MEDS RECONCILLED FROM LIST FROM [facility]S FEELS BETTER WITH OXYGEN ON. DENIES ANY PAIN. EXERTIONAL DYSPNEA. TM
--- NOTE | 2020-03-01 04:35 | NUR ---
SHIFT SUMMARY ADMITTED FOR COPD EXACERBATION. FULL CODE. TELEMETRY: NSR @ 96 BPM. PLAN IS TO DIURESE, AND POSSIBLY A HOME O2 EVAL BEFORE DISCHARGE. LUNGS HAVE EXPIRATORY WHEEZES THROUGHOUT. PT HAS A HX OF CHF. RT TX'S ARE AVAILABLE.
[2020-03-01 05:12] LABS: BASOPHILS ABSOLUTE AUTO 0.01 K/mm3 (0.00-0.23); BASOPHILS PERCENT AUTO 0 % (0-2); EOSINOPHILS ABSOLUTE AUTO 0.03 K/mm3 (0.00-0.68); EOSINOPHILS PERCENT AUTO 0 % (0-6); Hematocrit 44.8 % (37.0-53.0); Hemoglobin 14.2 g/dL (13.5-17.5); IMMATURE GRAN ABSOLUTE AUTO 0.02 K/mm3 (0.00-0.10); IMMATURE GRAN PERCENT AUTO 0 % (0-1); LYMPHOCYTES ABSOLUTE AUTO 1.52 K/mm3 (0.84-5.20); LYMPHOCYTES PERCENT AUTO 20 % (21-46); MONOCYTES ABSOLUTE AUTO 0.48 K/mm3 (0.16-1.47); MONOCYTES PERCENT AUTO 6 % (4-13); Mean Corpuscular HGB 30.1 pg (26.0-34.0); Mean Corpuscular HGB Conc 31.7 g/dL (31.5-36.5); Mean Corpuscular Volume 95 fL (80-100); Mean Platelet Volume 8.7 fL (9.1-12.4); NEUTROPHILS ABSOLUTE AUTO 5.61 K/mm3 (1.96-9.15); NEUTROPHILS PERCENT AUTO 73 % (41-73); Platelet Count 281 K/mm3 (150-400); RDW Coefficient Variation 13.2 % (11.7-14.2); RDW Standard Deviation 46.3 fL (35.1-46.3); Red Blood Cell Count 4.72 M/mm3 (4.30-5.90); White Blood Cell Count 7.67 K/mm3 (4.00-11.30)
[2020-03-01 05:55] LABS: Alanine Aminotransfer (ALT/SGP 44 U/L (12-78); Albumin, Blood 3.4 g/dL (3.4-5.0); Albumin/Globulin Ratio 0.9 (0.8-1.8); Alk Phos 144 U/L (50-136); Anion Gap 5 mmol/L (6-16); Aspartate Aminotrans (AST/SGOT 21 U/L (12-37); Bilirubin, Total 0.4 mg/dL (0.1-1.0); Blood Urea Nitrogen 15 mg/dL (8-24); Bun/Creatinine Ratio 18.5 (12.0-20.0); CO2, Blood 30 mmol/L (21-32); Calcium, Blood 8.9 mg/dL (8.5-10.1); Chloride, Blood 100 mmol/L (98-108); Creatinine, Blood 0.81 mg/dL (0.60-1.20); Globulin, Blood 3.8 g/dL (2.2-4.0); Glomerular Filtration Rate >60 (60-); Glucose, Blood 102 mg/dL (70-99); Potassium, Blood 4.9 mmol/L (3.5-5.5); Sodium, Blood 135 mmol/L (136-145); Total Protein, Blood 7.2 g/dL (6.4-8.2)
--- NOTE | 2020-03-01 15:32 | NUR ---
ALERT. ORIENTED. TOLERATED SHOWER. VISITING WITH . AMBULATING MORE TODAY IN ROOM. LUNGS SOUNDING BETTER TODAY. YESTERDAY AUDIBLE WHEEZES, TODAY DIM TO CLEAR WITH INFREQUENT WHEEZES.NO C/O PAIN. TELE ON AND RUNNING SR W/1ST DEGREE JUST UNDER 100 AT THIS TIME. HAS BEEN SR. WCTM
--- NOTE | 2020-03-01 17:43 | NUR ---
Spiritual care note: Figueroa is personable and open to visit. He has a strong shaheed and a loving family. He has shaheed the God is healing him. Facilitated hsaheed review and provided prayer. I will remain available.
--- NOTE | 2020-03-01 17:52 | NUR ---
TOOK OVER PT CARE AT 1430. PT IS RESTING IN BED EATING DINNER. AOX4 AND PLEASANT WITH CARE.PT DENIED ANY PAIN AT THIS TIME. WILL CONTINUE TO MONITOR UNTIL SHIFT CHANGE.
[2020-03-02 05:03] LABS: BASOPHILS ABSOLUTE AUTO 0.04 K/mm3 (0.00-0.23); BASOPHILS PERCENT AUTO 1 % (0-2); EOSINOPHILS ABSOLUTE AUTO 0.71 K/mm3 (0.00-0.68); EOSINOPHILS PERCENT AUTO 9 % (0-6); Hematocrit 44.1 % (37.0-53.0); Hemoglobin 14.1 g/dL (13.5-17.5); IMMATURE GRAN ABSOLUTE AUTO 0.02 K/mm3 (0.00-0.10); IMMATURE GRAN PERCENT AUTO 0 % (0-1); LYMPHOCYTES ABSOLUTE AUTO 2.15 K/mm3 (0.84-5.20); LYMPHOCYTES PERCENT AUTO 28 % (21-46); MONOCYTES ABSOLUTE AUTO 0.85 K/mm3 (0.16-1.47); MONOCYTES PERCENT AUTO 11 % (4-13); Mean Corpuscular HGB 30.4 pg (26.0-34.0); Mean Corpuscular Volume 95 fL (80-100); Mean Platelet Volume 8.4 fL (9.1-12.4); NEUTROPHILS ABSOLUTE AUTO 4.02 K/mm3 (1.96-9.15); NEUTROPHILS PERCENT AUTO 52 % (41-73); Platelet Count 270 K/mm3 (150-400); RDW Coefficient Variation 13.1 % (11.7-14.2); RDW Standard Deviation 46.5 fL (35.1-46.3); Red Blood Cell Count 4.64 M/mm3 (4.30-5.90); White Blood Cell Count 7.79 K/mm3 (4.00-11.30)
--- NOTE | 2020-03-02 05:09 | NUR ---
SEPARATOR OPERATOR SHELLFISH MEATS SUMMARY A/O, APPEARED TO SLEEP T/O THE NIGHT. DENIES PAIN OR SOB. CURRENTLY ON 2L VIA NC. R/T TO BEDSIDE FOR BREATHING TX'S. VSS. NO ACUTE CHANGES AT THIS TIME. BED IN LOWEST POSITION WITH CALL LIGHT IN REACH.
[2020-03-02 05:35] LABS: Alanine Aminotransfer (ALT/SGP 42 U/L (12-78); Albumin, Blood 3.4 g/dL (3.4-5.0); Alk Phos 131 U/L (50-136); Anion Gap 6 mmol/L (6-16); Aspartate Aminotrans (AST/SGOT 24 U/L (12-37); Bilirubin, Total 0.4 mg/dL (0.1-1.0); Blood Urea Nitrogen 22 mg/dL (8-24); Bun/Creatinine Ratio 29.2 (12.0-20.0); CO2, Blood 29 mmol/L (21-32); Calcium, Blood 8.7 mg/dL (8.5-10.1); Chloride, Blood 100 mmol/L (98-108); Creatinine, Blood 0.75 mg/dL (0.60-1.20); Globulin, Blood 3.5 g/dL (2.2-4.0); Glomerular Filtration Rate >60 (60-); Glucose, Blood 92 mg/dL (70-99); Magnesium, Blood 2.3 mg/dL (1.6-2.4); Potassium, Blood 4.2 mmol/L (3.5-5.5); Sodium, Blood 135 mmol/L (136-145); Total Protein, Blood 6.9 g/dL (6.4-8.2)
--- NOTE | 2020-03-02 11:30 | NUR ---
1000 PT SATTING 96-97% ON 3L. TURNED TO 2L. SATS 95-96%. WILL FOLLOW 1100 PT SATTING 56-96% ON 2L. TURNED TO 1L. SATS 95-96% WILL FOLLOW
--- NOTE | 2020-03-02 12:13 | NUR ---
PT STATES NO BM 3-[address] BLACK. OKAY DOCUSATE AND MIRALAX ORDERS.
--- NOTE | 2020-03-02 17:18 | NUR ---
PT PLEASANT TODAY. TURNED O2 DOWN TODAY FROM 3L TO 1 L O2 SATS CONTINUING FROM >93% UP TO 96% AT TIMES. PT STATED SOME SHORTNESS OF BREATH AT TIME OF TURNING DOWN, ON LITER AT A TIME, BUT IN A COUPLE MINUTES, HE SAID FELT FINE. SATS DID NOT DROP UNDER 93%. TURNED DOWN OVER 3 HOURS TIME PERIOD. AMBULATED TO BATHROOM, DID WELL WITH NO DROP IN O2 SATS. CONTINUE TO MONITOR. NO NEW CONCERNS AT THIS TIME. BED IN LOW POSITION, CALL LITE IN REACH, CALLS APPROP
--- NOTE | 2020-03-03 05:24 | NUR ---
SHIFT SUMMARY: VSS. AFEB. 02 93-96% ON 1L VIA NC. RESPS REG, NON-LABORED AT REST. PT BECOMES VERY SOB W/ ACTIVITY. SITTING AT EDGE OF BED LEANING FORWARD W/ ARMS ON TABLE FOR SEVERAL MINUTES TO RECOVER FROM ACTIVITY. EXP WHEEZE AUSCULTATED THROUGHOUT LUNGS. PT DENIES SOB AT REST. NO ACUTE CHANGES OVERNIGHT. WILL CONT TO MONITOR.
[2020-03-03] MEDS ORDERED: PRED20 PO (12:52)
--- NOTE | 2020-03-03 14:29 | NUR ---
Discharge Summary A/Ox4, pleasant and cooperative with care. Discharged to home. Reviewed discharge paperwork with patient, questions answered to patient's satisfaction. Copy provided. IV removed, WNL. Home O2 eval completed, order for 2L NC with activity, RA at rest. [facility] delivered portable O2 tank. called taxi cab for transport home. Escorted by SIGNAL MAINTAINER via w/c.
[2020-05-29] MEDS ORDERED: GUAI600T33 PO (12:44)
== END 2020-03-03 14:29 | disposition home or self-care (01) | DRG 190 ==
LOC: ER 00:19 → MEDS 02:49
PROVIDERS: Emergency Medicine; Internal Medicine; ADMIT Internal Medicine
PROC: 3E0234Z Introduction of Serum, Toxoid and Vaccine into Muscle, Percutaneous Approach (ICD-10-PCS; principal; 2020-02-29)
DX: J44.1 Chronic obstructive pulmonary disease with (acute) exacerbation (principal); I50.33 Acute on chronic diastolic (congestive) heart failure; I11.0 Hypertensive heart disease with heart failure; Z23 Encounter for immunization; G40.909 Epilepsy, unspecified, not intractable, without status epilepticus; I48.0 Paroxysmal atrial fibrillation; Z20.822 Contact with and (suspected) exposure to COVID-19; F43.10 Post-traumatic stress disorder, unspecified; E78.5 Hyperlipidemia, unspecified; F03.90 Unspecified dementia, unspecified severity, without behavioral disturbance, psychotic disturbance, mood disturbance, and anxiety; Z87.891 Personal history of nicotine dependence; Z79.01 Long term (current) use of anticoagulants
CPT/HCPCS: 0241U; 36415; 71045; 80053; 82947; 83605; 83735; 83880; 84145; 84484; 85025; 87040; 93005; 93010; 94640; 94644; 94760; 94761; 96365; 96366; 96368; 96375; 99285-25; A9270; J0456; J0696; J1940; J2930; J7050; J7512; Q2038

== ENCOUNTER 2020-03-15 17:17 | Emergency (ER) | payer OTHER, MEDICARE ==
[~2020-03-15] VITALS: Ht 167.6 cm; Wt 88.5 kg
[~2020-03-15 17:17] MED LIST changes: +ATOR20 PO; +METO50ER PO; +MOME220I INH; +STRIVERDI RESPIM4 G1 INH
[2020-03-15 18:13] LABS: BASOPHILS ABSOLUTE AUTO 0.04 K/mm3 (0.00-0.23); BASOPHILS PERCENT AUTO 0 % (0-2); EOSINOPHILS ABSOLUTE AUTO 1.01 K/mm3 (0.00-0.68); EOSINOPHILS PERCENT AUTO 9 % (0-6); Hematocrit 46.1 % (37.0-53.0); Hemoglobin 14.5 g/dL (13.5-17.5); IMMATURE GRAN ABSOLUTE AUTO 0.04 K/mm3 (0.00-0.10); IMMATURE GRAN PERCENT AUTO 0 % (0-1); LYMPHOCYTES ABSOLUTE AUTO 1.91 K/mm3 (0.84-5.20); LYMPHOCYTES PERCENT AUTO 18 % (21-46); MONOCYTES ABSOLUTE AUTO 1.07 K/mm3 (0.16-1.47); MONOCYTES PERCENT AUTO 10 % (4-13); Mean Corpuscular HGB 30.2 pg (26.0-34.0); Mean Corpuscular HGB Conc 31.5 g/dL (31.5-36.5); Mean Corpuscular Volume 96 fL (80-100); Mean Platelet Volume 8.2 fL (9.1-12.4); NEUTROPHILS ABSOLUTE AUTO 6.63 K/mm3 (1.96-9.15); NEUTROPHILS PERCENT AUTO 62 % (41-73); Platelet Count 252 K/mm3 (150-400); RDW Coefficient Variation 13.2 % (11.7-14.2); RDW Standard Deviation 46.8 fL (35.1-46.3)
[2020-03-15 18:40] LABS: Alanine Aminotransfer (ALT/SGP 55 U/L (12-78); Albumin, Blood 3.5 g/dL (3.4-5.0); Albumin/Globulin Ratio 0.9 (0.8-1.8); Alk Phos 119 U/L (50-136); Anion Gap 3 mmol/L (6-16); Aspartate Aminotrans (AST/SGOT 22 U/L (12-37); Bilirubin, Total 0.4 mg/dL (0.1-1.0); Blood Urea Nitrogen 10 mg/dL (8-24); Bun/Creatinine Ratio 14.7 (12.0-20.0); CO2, Blood 32 mmol/L (21-32); Chloride, Blood 102 mmol/L (98-108); Creatinine, Blood 0.68 mg/dL (0.60-1.20); Globulin, Blood 3.9 g/dL (2.2-4.0); Glomerular Filtration Rate >60 (60-); Glucose, Blood 92 mg/dL (70-99); Potassium, Blood 4.6 mmol/L (3.5-5.5); Sodium, Blood 137 mmol/L (136-145); Total Protein, Blood 7.4 g/dL (6.4-8.2)
[2020-03-15] MEDS ORDERED: Prednisone50 MG PO (21:44)
[2020-05-29] MEDS ORDERED: GUAI600T33 PO (12:44)
== END 2020-03-15 21:55 | disposition home or self-care (01) ==
LOC: ER 17:17
PROVIDERS: Physician Assistant
DX: J44.1 Chronic obstructive pulmonary disease with (acute) exacerbation (principal); I11.0 Hypertensive heart disease with heart failure; I50.9 Heart failure, unspecified; E87.70 Fluid overload, unspecified; E78.5 Hyperlipidemia, unspecified; Z79.01 Long term (current) use of anticoagulants; Z79.899 Other long term (current) drug therapy; Z91.041 Radiographic dye allergy status; Z79.52 Long term (current) use of systemic steroids; Z79.82 Long term (current) use of aspirin; Z87.891 Personal history of nicotine dependence
CPT/HCPCS: 36415; 71046; 80053; 83880; 84484; 85025; 93005; 93010; 94640; 94644; 96374; 99285-25; J1940; J7512

== ENCOUNTER 2020-03-29 12:06 | Inpatient (IN) | payer OTHER, MEDICARE ==
[~2020-03-29] VITALS: Ht 167.6 cm; Wt 86.0 kg
[~2020-03-29 12:06] MED LIST changes: +Prednisone50 MG PO
[2020-03-29 12:43] LABS: BASOPHILS ABSOLUTE AUTO 0.02 K/mm3 (0.00-0.23); BASOPHILS PERCENT AUTO 0 % (0-2); EOSINOPHILS ABSOLUTE AUTO 0.76 K/mm3 (0.00-0.68); EOSINOPHILS PERCENT AUTO 9 % (0-6); Hematocrit 46.6 % (37.0-53.0); IMMATURE GRAN ABSOLUTE AUTO 0.01 K/mm3 (0.00-0.10); IMMATURE GRAN PERCENT AUTO 0 % (0-1); LYMPHOCYTES ABSOLUTE AUTO 2.33 K/mm3 (0.84-5.20); LYMPHOCYTES PERCENT AUTO 29 % (21-46); MONOCYTES ABSOLUTE AUTO 0.81 K/mm3 (0.16-1.47); MONOCYTES PERCENT AUTO 10 % (4-13); Mean Corpuscular HGB 30.1 pg (26.0-34.0); Mean Corpuscular HGB Conc 32.2 g/dL (31.5-36.5); Mean Corpuscular Volume 94 fL (80-100); Mean Platelet Volume 8.5 fL (9.1-12.4); NEUTROPHILS PERCENT AUTO 52 % (41-73); Platelet Count 242 K/mm3 (150-400); RDW Coefficient Variation 13.1 % (11.7-14.2); RDW Standard Deviation 45.1 fL (35.1-46.3); Red Blood Cell Count 4.98 M/mm3 (4.30-5.90); White Blood Cell Count 8.13 K/mm3 (4.00-11.30)
[2020-03-29 12:59] LABS: Alanine Aminotransfer (ALT/SGP 48 U/L (12-78); Albumin, Blood 3.1 g/dL (3.4-5.0); Albumin/Globulin Ratio 0.8 (0.8-1.8); Alk Phos 116 U/L (50-136); Anion Gap 6 mmol/L (6-16); Aspartate Aminotrans (AST/SGOT 25 U/L (12-37); Bilirubin, Total 0.4 mg/dL (0.1-1.0); Blood Urea Nitrogen 13 mg/dL (8-24); Bun/Creatinine Ratio 16.1 (12.0-20.0); CO2, Blood 30 mmol/L (21-32); Calcium, Blood 8.4 mg/dL (8.5-10.1); Chloride, Blood 102 mmol/L (98-108); Creatinine, Blood 0.81 mg/dL (0.60-1.20); Globulin, Blood 3.8 g/dL (2.2-4.0); Glomerular Filtration Rate >60 (60-); Glucose, Blood 107 mg/dL (70-99); Potassium, Blood 4.3 mmol/L (3.5-5.5); Sodium, Blood 138 mmol/L (136-145); Total Protein, Blood 6.9 g/dL (6.4-8.2); Troponin I <0.015 ng/mL (0.000-0.040)
--- NOTE | 2020-03-29 16:04 | NUR ---
Call to ED RN to request report. She is attempting to start an IV and will call when she is available.
--- NOTE | 2020-03-29 17:31 | NUR ---
Pt arrived from ED, loud audible wheezing and tachypnea noted. He is able to speak in short phrases, but appears to be tiring with the tachypnea. RT Harris called and pt was given a neb. Now he states that he is feeling like his breathing is better, but that the shortness of breath always comes back. He has spo2 of 92-93% on 2 l/min of O2 and respiratory rate is decreased from 33 to 22/min after the neb. Heart rate remains at 135-138/minute, afib, and blood pressure slightly lower but stable after cardizem was titrated from 5 cc/hour to 10cc/ hour to 15 without improvement on the heart rate. Plan to call [facility] to address persistent unresponsive atrial fib with RVR.
[2020-03-29] MEDS ORDERED: DILT180 PO (18:39)
--- NOTE | 2020-03-29 19:27 | NUR ---
Call to [facility] to update on revisions made to home med rec following conversation with the pt's Hawa and daughter over the phone. Pt takes cardizem CD at bedtime, and Multaq only once daily, not b.i.d. Updated [facility] on pt's condition and new orders were received.
[2020-03-29 20:04] LABS: Influenza A, PCR NEGATIVE (NEGATIVE); Influenza B, PCR NEGATIVE (NEGATIVE); Resp Syncytial Virus, PCR NEGATIVE (NEGATIVE); SARS-Cov-2 (COVID-19) PCR, MMC NEGATIVE (NEGATIVE)
[2020-03-30 04:46] LABS: Hematocrit 43.9 % (37.0-53.0); Hemoglobin 14.3 g/dL (13.5-17.5); Mean Corpuscular HGB 30.2 pg (26.0-34.0); Mean Corpuscular HGB Conc 32.6 g/dL (31.5-36.5); Mean Corpuscular Volume 93 fL (80-100); Mean Platelet Volume 8.6 fL (9.1-12.4); Platelet Count 249 K/mm3 (150-400); RDW Coefficient Variation 12.8 % (11.7-14.2); RDW Standard Deviation 43.8 fL (35.1-46.3); Red Blood Cell Count 4.74 M/mm3 (4.30-5.90); White Blood Cell Count 7.02 K/mm3 (4.00-11.30)
--- NOTE | 2020-03-30 05:31 | NUR ---
SHIFT SUMMARY PT SLEPT T/O SHIFT. PT ALERT AND ORIENTED X 4. HX OF DEMENTIA. BED ALARM IN PLACE FOR PT SAFETY. CARDIZEM GTT OFF, SEE EMAR. HR STABLE IN 60'S-80'S. PT REPORTS NO CP OR PRESSURE. BP STABLE. OXYGEN SATURATON MAINTAINED ABOVE 92% ON 2 L OF OXYGEN VIA NC. THIS IS PT'S BASELINE. PT NO LONGER IN DROPLET ISOLATION FOR COVID D/T ORDERS FROM PHYSICIAN AFTER SECOND COVID TEST WAS NEGATIVE. PT ABLE TO TURN SELF IN BED NEEDED. WILL CONTINUE TO MONITOR UNTIL REPORT GIVEN TO CHESTER DAVIS.
[2020-03-30 05:43] LABS: Anion Gap 4 mmol/L (6-16); Blood Urea Nitrogen 16 mg/dL (8-24); Bun/Creatinine Ratio 22.1 (12.0-20.0); CO2, Blood 29 mmol/L (21-32); Calcium, Blood 8.7 mg/dL (8.5-10.1); Chloride, Blood 103 mmol/L (98-108); Creatinine, Blood 0.73 mg/dL (0.60-1.20); Glomerular Filtration Rate >60 (60-); Glucose, Blood 100 mg/dL (70-99); Potassium, Blood 4.6 mmol/L (3.5-5.5); Sodium, Blood 136 mmol/L (136-145)
--- NOTE | 2020-03-30 11:56 | NUR ---
Spiritual care visit conducted. Patient is sitting up in bed and alert. Patient talks about his long history with medical issues and the SOB that led to his trip to the hospital. Patient speaks of his heritage, his years in [place] with family and then his move to [place] 14yrs ago. Patient also shares about his spiritual journey and his membership at the [employer] near [facility]. Patient tells me personal stories and about his concerns with his health. I normalize patient's experience, reinforce helpful attitudes and practices and provide prayer. Patient responds well and shows signs of an elevated mood. I will continue to remain available to patient and family.
--- NOTE | 2020-03-30 12:16 | NUR ---
UPDATE: PT HR INCREASED TO 130'S THIS AFTERNOON AND MAINTAINING. PT DENIES CHEST PAIN/PRESSURE. DR. PLATA AWARE AND IN TO SEE PATIENT. COLEMAN CALLED TO CONFIRM MED REC. CONFIRMED PT DOSAGE OF CARDIZEM. SEE NEW ORDERS PER DR. PLATA FOR PO CARDIZEM. WILL CONTINUE TO MONITOR HR AND DPATIENT STATUS.
--- NOTE | 2020-03-30 17:43 | NUR ---
SHIFT SUMMARY: PT ALERT AND ORIENTED X4. HX OF DEMENTIA. TELE SHOWING AFLUTTER WITH HR 80-90'S. DENIES CHEST PAIN/PRESSURE. THIS AFTERNOON PT HR SPIKED 130-140. SEE PREVIOUS NOTE. HR NOW MAINTAINING AROUND 88. ON 2 L O2 VIA NASAL CANNULA WHICH, IS PTS BASELINE AT HOME AND SATING ABOVE 92%. INTERMITTENT WHEEZING WITH MOVEMENT/TALKING. PT STATES THIS IS HIS NORMAL AND THAT IS "COMES AND GOES". RESPIRATORY IN TO SEE PATIENT MULTIPLE TIMES TODAY. WITH BREATHING TREATMENT PATIENTS WHEEZING IMPROVED. INTO VISIT PATIENT TODAY AND HIS SPIRITS WERE LIFETED. PLEASENT AND COOPERATIVE WITH CARES. USING URINAL AND CALLING APPROPRIATLY. WILL CONTINUE TO MONITOR AND REPORT OFF.
--- NOTE | 2020-03-30 21:16 | NUR ---
ASSUMED CARE OF PATIENT AT APPROXIMATELY 1905 FROM SONIA Crow RN. PATIENT ALERT AND ORIENTED X4. 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 PATIENT DENIES DIZZINESS OR NAUSEA. PATIENT HAS DYSPNEA IN BED AND TALKING AND REPORTS HE LIKE THIS AT HOME AND HIS HAS TO REMIND HIM TO BREATH THROUGHT HIS NOSE; GIVEN BEDSIDE FAN; REPORTS HE HAS ONE AT HOME AND IT HELPS. AFLUTTER ON TELE; 90-115 RATE; OXYGEN SATURATION ABOVE 90% ON 2LPM VIA NC (BASELINE). IN ISO PRECUATIONS FOR COVID. PIV S/L X2. TURNS SELF IN BED; SBA OUT OF BED. PATIENT REPORTS HE HAD A BM AT AROUND NOON TODAY; USES URINAL IN BED. PATIENT CURRENTLY RESTING IN BED; CALL LIGHT IN REACH; BED IN LOWEST POSISTION; BED ALARM ON.
[2020-03-31 04:19] LABS: Albumin, Blood 3.1 g/dL (3.4-5.0); Anion Gap 5 mmol/L (6-16); Blood Urea Nitrogen 21 mg/dL (8-24); CO2, Blood 29 mmol/L (21-32); Calcium, Blood 8.9 mg/dL (8.5-10.1); Chloride, Blood 102 mmol/L (98-108); Creatinine, Blood 0.78 mg/dL (0.60-1.20); Glomerular Filtration Rate >60 (60-); Glucose, Blood 126 mg/dL (70-99); Potassium, Blood 4.7 mmol/L (3.5-5.5); Sodium, Blood 136 mmol/L (136-145)
--- NOTE | 2020-03-31 06:15 | NUR ---
PATIENT SLEPT ABOUT SEVEN HOURS LAST NIGHT. NO ACUTE CHANGES.
--- NOTE | 2020-03-31 12:08 | NUR ---
UPDATE: PT HR AVERAGING 130-[address] PLATA CALLED AND JULEE PO SWITCHED TO AM INSTEAD OF PM. SEE EMAR FOR ORDER. CONTINUING TO MONITOR HR. DR. PLATA IN TO SEE PATIENT THIS AFTERNOON. PT TEARFUL DUE TO FEAR OF HAVING COVID. PATIENT REASURED OF TREATMENT FOR COPD AND COVID. WILL CONTINUE TO REASSURE AND REINFORNCE EDUCATION ABOUT TREATMENT AND STATUS.
--- NOTE | 2020-03-31 18:29 | NUR ---
SHIFT SUMMARY: PT ALERT AND ORIENTED X4. STATES HE IS FORGETFUL AT TIMES DUE TO HIS "PTSD". TELE SHOWING AFLUTTER WITH HR AVERAGING 100-110. SEE PREVIOUS NOTE FOR HR THIS MORNING. ON 2 L O2 VIA NASAL CANNULA, AT BASELINE SATING ABOVE 92%. EXPIRATORY WHEEZE HEARD THROUGHOUT LUNGS. PT STATES WHEEZING "COMES AND GOES". RESPIRATORY INTO SEE PT TODAY. BED ALARM ON FOR SAFETY, HX OF DEMENTIA. MINIMAL SWELLING BLE. USING URINAL. CALLING APPROPRIATLY. DENIES CHEST PAIN/PRESSURE. VITAL SIGNS STABLE. NO ACUTE CHANGES. WILL CONTINUE TO MONITOR AND REPORT OFF.
--- NOTE | 2020-03-31 23:53 | NUR ---
ASSUMED CARE OF PATIENT AT APPROXIMATELY 1905 FROM SONIA Crow RN. PATIENT ALERT AND ORIENTED X4. PATIENT DENIES PAIN, DIZZINESS OR NAUSEA. PATIENT HAS DYSPNEA W/ EXCERTION; IMPROVED COMPARED TO LAST NIGHT. AFLUTTER/AFIB ON TELE; OXYGEN SATURATION ABOVE 90% ON 2LPM VIA NC (BASELINE). IN ISO PRECUATIONS FOR COVID. PIV S/L X2. TURNS SELF IN BED; SBA OUT OF BED. USES URINAL IN BED. PATIENT CURRENTLY RESTING IN BED; CALL LIGHT IN REACH; BED IN LOWEST POSISTION; BED ALARM ON.
--- NOTE | 2020-04-01 06:03 | NUR ---
PATIENT SLEPT FOR ABOUT FIVE HOURS LAST NIGHT. SAT IN CHAIR FOR THE PAST 3 HOURS. VSS. NO OTHER ACUTE CHANGES TO REPORT.
--- NOTE | 2020-04-01 17:54 | NUR ---
SHIFT SUMMARY: PT ALERT AND ORIENTED X4. ON 1-2 LITER 02 SATING ABOVE 92%. PT WEARS 2 L CONTINUOUS AT HOME. TELE SHOWING AFLUTTER WITH HR AVERAGING 100-110. DENIES CHEST PAIN. EXPIRATORY WHEEZE HEARD THROUGHOUT THE LUNGS AND INCREASED WITH MOVEMENT AND PT REPOSITIONING HIMSELF. PT ABLE TO RECOVER AND WHEEZING DIMINISHED AFTER RESTING FOR 3 MIN. MINIMAL SWELLING NOTED IN BILATERAL LOWER EXTREMITIES. PT STATES "I AM FEELING GOOD AND EXCITED TO GO HOME" THROUGHOUT THE ENTIRE SHIFT. IN TO SEE PATIENT TODAY. PT SHOWERED TODAY AND UP IN CHAIR FOR MEALS. BP STABLE. CALL LIGHT IN REACH. BED REMAINED IN LOW LOCKED POSITION AND BED/CHAIR ALARM ON. WILL CONTINUE TO MONITOR AND REPORT OFF.
--- NOTE | 2020-04-02 05:30 | NUR ---
SHIFT SUMMARY PATIENT PLEASENT AND ALERT AND ORIENTED. PT HAS NOT REPORTED SOB OR CHEST PAIN. PT IS ON 1L (BASELINE OF 2L) OXYGEN WITH SATS >92%. PT IS A AFLUTTER @ 90-110. HE HAS WHEEZING THROUGHTOUT LUNGS. USES URINAL AT BEDSIDE. USES CALL LIGHT APPROPRIATELY.
[2020-04-02 06:13] LABS: Albumin, Blood 3.2 g/dL (3.4-5.0); Anion Gap 3 mmol/L (6-16); Blood Urea Nitrogen 29 mg/dL (8-24); Bun/Creatinine Ratio 42.3 (12.0-20.0); CO2, Blood 29 mmol/L (21-32); Calcium, Blood 8.7 mg/dL (8.5-10.1); Chloride, Blood 103 mmol/L (98-108); Creatinine, Blood 0.69 mg/dL (0.60-1.20); Glomerular Filtration Rate >60 (60-); Glucose, Blood 107 mg/dL (70-99); Phosphorus, Blood 4.1 mg/dL (2.5-4.9); Potassium, Blood 5.4 mmol/L (3.5-5.5); Sodium, Blood 135 mmol/L (136-145)
[2020-04-02] MEDS ORDERED: Prednisone10 MG PO (12:48)
--- NOTE | 2020-04-02 13:18 | NUR ---
DISCHARGE PT ALERT AND ORIENTED. VS STABLE. O2 SATS REMAIN ABOVE 90% ON 1L NC. PT DENIES ANY PAIN. DR. PLATA IN WITH PLANS FOR DC. PT EDUCATED ON MEDICATION CHANGES. PT EDUCATED ON ALL DC INSTRUCTIONS. ALL QUESTIONS ANSWERED. PT WAITING FOR AND THEN HE WILL BE TAKEN OUT BY WC.
[2020-05-29] MEDS ORDERED: GUAI600T33 PO (12:44)
== END 2020-04-02 13:49 | disposition home or self-care (01) | DRG 178 ==
LOC: ER 12:06 → PCU 15:09 → ERHOLD 15:09 → PCU 15:45
PROVIDERS: Emergency Medicine; Internal Medicine; Nurse Practitioner Acute Care; ADMIT Internal Medicine
PROC: 8E0ZXY6 Isolation (ICD-10-PCS; principal; 2020-03-29)
DX: U07.1 COVID-19 (principal); J44.1 Chronic obstructive pulmonary disease with (acute) exacerbation; J96.11 Chronic respiratory failure with hypoxia; I48.20 Chronic atrial fibrillation, unspecified; Z99.81 Dependence on supplemental oxygen; F03.90 Unspecified dementia, unspecified severity, without behavioral disturbance, psychotic disturbance, mood disturbance, and anxiety; I10 Essential (primary) hypertension; E78.5 Hyperlipidemia, unspecified; F43.10 Post-traumatic stress disorder, unspecified; G40.909 Epilepsy, unspecified, not intractable, without status epilepticus; Z87.891 Personal history of nicotine dependence
CPT/HCPCS: 0241U; 36415; 71045; 80048; 80053; 80069; 83735; 83880; 84443; 84484; 85025; 85027; 93005; 93010; 94640; 94762; 96365; 96368; 96375; 96376; 99285-25; A9270; J0696; J1100; J2920; J2930

== ENCOUNTER 2020-04-25 19:06 | Inpatient (IN) | payer OTHER, MEDICARE ==
[~2020-04-25] VITALS: Ht 167.6 cm; Wt 87.5 kg
[~2020-04-25 19:06] MED LIST changes: +DILT180 PO; +Prednisone10 MG PO
[2020-04-25 19:49] LABS: PCO2 Arterial 77.2 mmHg (35-45); PO2 Arterial 89.1 mmHg (80-100)
[2020-04-25 19:53] LABS: BASOPHILS ABSOLUTE AUTO 0.02 K/mm3 (0.00-0.23); BASOPHILS PERCENT AUTO 0 % (0-2); EOSINOPHILS PERCENT AUTO 11 % (0-6); Hematocrit 43.2 % (37.0-53.0); Hemoglobin 13.8 g/dL (13.5-17.5); IMMATURE GRAN ABSOLUTE AUTO 0.01 K/mm3 (0.00-0.10); IMMATURE GRAN PERCENT AUTO 0 % (0-1); LYMPHOCYTES ABSOLUTE AUTO 1.48 K/mm3 (0.84-5.20); LYMPHOCYTES PERCENT AUTO 20 % (21-46); MONOCYTES ABSOLUTE AUTO 0.87 K/mm3 (0.16-1.47); MONOCYTES PERCENT AUTO 12 % (4-13); Mean Corpuscular HGB 30.2 pg (26.0-34.0); Mean Corpuscular HGB Conc 31.9 g/dL (31.5-36.5); Mean Corpuscular Volume 95 fL (80-100); Mean Platelet Volume 8.6 fL (9.1-12.4); NEUTROPHILS PERCENT AUTO 58 % (41-73); Platelet Count 233 K/mm3 (150-400); RDW Coefficient Variation 13.9 % (11.7-14.2); RDW Standard Deviation 47.7 fL (35.1-46.3); Red Blood Cell Count 4.57 M/mm3 (4.30-5.90); White Blood Cell Count 7.58 K/mm3 (4.00-11.30)
[2020-04-25 20:22] LABS: Alanine Aminotransfer (ALT/SGP 45 U/L (12-78); Albumin, Blood 3.6 g/dL (3.4-5.0); Albumin/Globulin Ratio 0.9 (0.8-1.8); Alk Phos 129 U/L (50-136); Anion Gap 1 mmol/L (6-16); Aspartate Aminotrans (AST/SGOT 22 U/L (12-37); Bilirubin, Total 0.2 mg/dL (0.1-1.0); Blood Urea Nitrogen 9 mg/dL (8-24); Bun/Creatinine Ratio 11.1 (12.0-20.0); CO2, Blood 37 mmol/L (21-32); Calcium, Blood 8.6 mg/dL (8.5-10.1); Chloride, Blood 98 mmol/L (98-108); Creatinine, Blood 0.81 mg/dL (0.60-1.20); Globulin, Blood 3.8 g/dL (2.2-4.0); Glomerular Filtration Rate >60 (60-); Glucose, Blood 113 mg/dL (70-99); Potassium, Blood 4.8 mmol/L (3.5-5.5); Sodium, Blood 136 mmol/L (136-145); Total Protein, Blood 7.4 g/dL (6.4-8.2); Troponin I <0.015 ng/mL (0.000-0.040)
--- NOTE | 2020-04-25 23:30 | NUR ---
ARRIVAL PT ARRIVED FROM ER VIA STRETCHER AND SLIDER SHEET WAS USED TO TRANSFER PT TO BED; DENIES CHEST PAIN; VSS; O2 SATS >93 ON BIPAP 30% FIO2; RT AT BEDSIDE TO ASSESS; PT ALERT AND ABLE TO SIGN FORMS, BUT STATES DUE TO PTSD HAS TROUBLE REMEMBERING MEDICATIONS; PERMISSION GIVEN TO CALL SPOUSE FOR MED REC INFORMATION; PHARMACY MANAGING ELIQUIS; TELEPHONED SPOUSE TO GIVE UPDATE AND REQUEST INFO ON LAST DOSAGE OF KEPPRA, DILANTIN AND ELIQUIS; SPOUSE, COLEMAN, EXPRESSED APPRECIATION FOR UPDATE; PT ORIENTED TO ROOM/CALL LIGHT SYSTEM, UNIT SAFETY PROTOCOL; CALL LIGHT IN REACH; BED IN LOWEST POSITION.
--- NOTE | 2020-04-26 01:14 | NUR ---
UPDATE PT CONVERTED TO AFLUTTER W/ HR 130'S AND SUSTAINING; NOTIFIED, NEW ORDERS FOR CARDIZEM GIVEN; REFER TO EMAR; PT SLEEPING W/ BIPAP ON; NO DISTRESS NOTED
--- NOTE | 2020-04-26 05:06 | NUR ---
SHIFT SUMMARY PT A&O X 4; BIPAP IN PLACE FOR DURATION OF NOC; O2 SATS >93 ON BIPAP W/ FIO2 30%; DENIES CHEST PAIN; BP STABLE; HR VARIABLE W/ AFIB/AFLUTTER; AT SOMETIMES SUSTAINING 130'S; CARDIZEM IV PUSH AND PO CARDIZEM ADMINISTERED PER EMAR THIS SHIFT; PT USES URINAL IN BED; SLEPT A FEW HOURS IN BETWEEN INTERVENTIONS; CALL LIGHT IN REACH; BED IN LOWEST POSITION; WILL CONTINUE CLOSELY UNTIL HAND OFF TO DAY SHIFT RN.
[2020-04-26 05:43] LABS: Anion Gap 8 mmol/L (6-16); Blood Urea Nitrogen 12 mg/dL (8-24); Bun/Creatinine Ratio 16.9 (12.0-20.0); CO2, Blood 30 mmol/L (21-32); Calcium, Blood 8.6 mg/dL (8.5-10.1); Chloride, Blood 97 mmol/L (98-108); Creatinine, Blood 0.71 mg/dL (0.60-1.20); Glomerular Filtration Rate >60 (60-); Glucose, Blood 121 mg/dL (70-99); Sodium, Blood 135 mmol/L (136-145)
--- NOTE | 2020-04-26 14:48 | NUR ---
Spiritual care visit conducted. Patient is sitting up in bed and has full face mask for air support and so communication is strained. Patient is known to this singer songwriter. Patient tells me that he is not ready to go home to [place] yet. He allows me to pray for him which I galdly provide. Patient voices appreciation. I will continue to remain available to patient and family.
--- NOTE | 2020-04-26 15:39 | NUR ---
PHYSICIAN UPDATED PHYSICIAN AWARE OF HR SUSTAINING IN 130'S. CARDIZEM GTT ORDERED. WILL HOLD NOC PO CARDIZEM AT THIS TIME. PHYSICIAN TO PUT IN ORDER.
--- NOTE | 2020-04-26 17:54 | NUR ---
SHIFT SUMMARY PT ALERT AND ORIENTED X 4. PT ABLE TO TURN SELF IN BED NEEDED. HR REMAINED TACHYCARDIC PHYSICIAN NOTIFIED, CARDIZEM GTT ORDERED. HR AVERAGING 110 AT END OF SHIFT. CARDIZEM GTT AT 10 ML/HR. BP STABLE. PT REPORTS NO CP OR PRESSURE. OXYGEN SATURATION MAINTAINED ABOVE 92% ON 3 L OF OXYGEN VIA NC OR BIPAP AT 30% FIO2. WILL CONTINUE TO MONITOR UNTIL REPORT GIVEN TO NIGHTSHIFT RN.
--- NOTE | 2020-04-26 19:10 | NUR ---
ASSUMED CARE RECEIVED BEDSIDE REPORT FROM GEOFFREY RN; PT A&O X 3; DENIES CHEST PAIN; VSS; O2 SATS >93 ON 3L NC OR BIPAP W/ 30% FIO2; RT AT BEDSIDE TO ASSESS; WATCHING TV W/NO DISTRESS NOTED; CALL LIGHT IN REACH; BED IN LOWEST POSITION.
--- NOTE | 2020-04-27 04:47 | NUR ---
SHIFT SUMMARY PT A&0 X 3; PLEASANT & COMPLIANT W/ CARE; DENIES CHEST PAIN; VSS; O2 SATS >93 ON 2L NC; BIPAP @ NOC ENCOURAGED, ONLY TOLERATED SHORT AMOUNT OF TIME; PT USES URINAL IN BED; BECOMES DISORIENTED AND PANICKED AT TIMES, REORIENTS EASILY, BECOMES APPOLOGETIC AND STATES, "FOGOT WHERE I WAS"; CALL LIGHT IN REACH; BED IN LOWEST POSITION; WILL CONTINUE TO MONITOR CLOSELY UNITL HAND OFF TO DAY SHIFT RN.
--- NOTE | 2020-04-27 18:36 | NUR ---
SHIFT SUMMARY: ALERT AND ORIENTED X4. PT STATES HE IS FORGETFUL AT TIMES. TELE SHOWING AFLUTTER WITH HR 100-110'S. DENIES CHEST PAIN/PRESSURE. O2 SATURATION ABOVE 92% ON 2 L O2 VIA NASAL CANNULA. THIS IS PATIENTS BASELINE. DENIES OVERALL PAIN. INCREASED EXPIRATORY WHEEZE WITH MOVEMENT IN BED, TALKING AND EATING. RESPIRATORY IN TO SEE PATIENT WITH TREATMENTS MULTIPLE TIMES TODAY. USING URINAL AND CALLING APPROPRIATLY. VITAL SIGNS STABLE, NO ACUTE CHANGES. IN TO SEE PATIENT THIS AFTERNOON. WILL CONTINUE TO MONITOR AND REPORT OFF.
[2020-04-28 04:33] LABS: BASOPHILS PERCENT AUTO 0 % (0-2); EOSINOPHILS PERCENT AUTO 0 % (0-6); Hematocrit 43.2 % (37.0-53.0); Hemoglobin 13.9 g/dL (13.5-17.5); IMMATURE GRAN ABSOLUTE AUTO 0.02 K/mm3 (0.00-0.10); IMMATURE GRAN PERCENT AUTO 0 % (0-1); LYMPHOCYTES ABSOLUTE AUTO 0.55 K/mm3 (0.84-5.20); LYMPHOCYTES PERCENT AUTO 8 % (21-46); MONOCYTES ABSOLUTE AUTO 0.26 K/mm3 (0.16-1.47); MONOCYTES PERCENT AUTO 4 % (4-13); Mean Corpuscular HGB 30.2 pg (26.0-34.0); Mean Corpuscular HGB Conc 32.2 g/dL (31.5-36.5); Mean Corpuscular Volume 94 fL (80-100); Mean Platelet Volume 8.6 fL (9.1-12.4); NEUTROPHILS ABSOLUTE AUTO 6.43 K/mm3 (1.96-9.15); NEUTROPHILS PERCENT AUTO 89 % (41-73); Platelet Count 252 K/mm3 (150-400); RDW Coefficient Variation 13.2 % (11.7-14.2); RDW Standard Deviation 45.1 fL (35.1-46.3); Red Blood Cell Count 4.61 M/mm3 (4.30-5.90); White Blood Cell Count 7.26 K/mm3 (4.00-11.30)
[2020-04-28 05:00] LABS: Alanine Aminotransfer (ALT/SGP 46 U/L (12-78); Albumin, Blood 3.4 g/dL (3.4-5.0); Alk Phos 112 U/L (50-136); Anion Gap 2 mmol/L (6-16); Aspartate Aminotrans (AST/SGOT 23 U/L (12-37); Bilirubin, Total 0.3 mg/dL (0.1-1.0); Blood Urea Nitrogen 32 mg/dL (8-24); Bun/Creatinine Ratio 33.4 (12.0-20.0); CO2, Blood 38 mmol/L (21-32); Chloride, Blood 96 mmol/L (98-108); Creatinine, Blood 0.96 mg/dL (0.60-1.20); Globulin, Blood 3.5 g/dL (2.2-4.0); Glomerular Filtration Rate >60 (60-); Glucose, Blood 125 mg/dL (70-99); Magnesium, Blood 2.3 mg/dL (1.6-2.4); Potassium, Blood 4.8 mmol/L (3.5-5.5); Sodium, Blood 136 mmol/L (136-145); Total Protein, Blood 6.9 g/dL (6.4-8.2)
--- NOTE | 2020-04-28 05:25 | NUR ---
CALLED DR LANE TO REPORT THAT APPROX 0515 PT CALLED TO REPORT THAT PULSE OX MONITOR FELL OFF SHELF AND HIT PT ON RIGHT SHOULDER; PT DENIES PAIN MULTIPLE TIMES. PULSE OX MACHINE MOVED TO BEDSIDE TABLE WITH DRAWERS.
--- NOTE | 2020-04-28 06:03 | NUR ---
SHIFT SUMMARY PT IS A/O, PLEASANT. PT IS ON 2L NC WITH SATS OF >92%, WHICH IS BASELINE FROM HOME OXYGEN. TELE READING OF ALFUTTER. NO ACUTE CHANGES. PT JOSE PAIN. USES URINAL AT BESIDE AND IS ABLE TO AMBULATE WITH FWW TO THE BATHROOM. BED ALARM IN PLACE AND PT HAS BEEN COMPLIANT WITH USING IT.
--- NOTE | 2020-04-28 11:44 | NUR ---
DISCHARGE: PT ALERT AND ORIENTED X4. TELE SHOWING AFLUTTER WITH HR AVERAGING 106. ON 2 L BASELINE OF O2 VIA NASAL CANNULA SATING ABOVE 92%. DENIES ANY CHEST PAIN/PAIN OVERALL. VITAL SIGN STABLE WITH SOME ELEVATED BP'S. NO ACUTE CHANGES. FINE EXPIRATORY WHEEZES HEARD THROUGHOUT. RESPIRATORY CARE IN TO SEE PATIENT WITH BREATHING TREATMENTS. USING URINAL AND CALLING APPROPRIATLY. BED REMAINED LOW AND LOCKED POSITION. DISCHARGE INSTRUCTIONS REVIEWED AND QUESTIONS ANSWERED WITH PRESENT. PT DISCHARGING HOME WITH , AND WILL BE TAKEN OUT VIA WHEELCHAIR. IV REMOVED PER PROTOCOL, WNL.
[2020-04-28] MEDS ORDERED: DELTASONE20 MG PO (12:18)
--- NOTE | 2020-04-28 12:30 | NUR ---
PT PROVIDED WITH VERBAL AND WRITTEN DISCHARGE INFORMATION, REVIEWED WITH THIS RN, PT'S AT BEDSIDE FOR TEACHING WELL, NO QUESTIONS OR CONCERNS AT THIS TIME. PT'S IV HAS BEEN REMOVED. ALL PT BELONGINGS SENT HOME WITH PT. PT TAKEN VIA WHEELCHAIR TO FAMILY TO TRANSPORT HOME. NO FURTHER DISCHARGE NEEDS IDENTIFIED.
[2020-05-29] MEDS ORDERED: GUAI600T33 PO (12:44)
== END 2020-04-28 12:34 | disposition home or self-care (01) | DRG 291 ==
LOC: ER 19:06 → PCU 22:39
PROVIDERS: Emergency Medicine; Internal Medicine; ADMIT Internal Medicine
PROC: 5A09357 Assistance with Respiratory Ventilation, Less than 24 Consecutive Hours, Continuous Positive Airway Pressure (ICD-10-PCS; principal; 2020-04-25)
DX: I11.0 Hypertensive heart disease with heart failure (principal); J96.21 Acute and chronic respiratory failure with hypoxia; J96.22 Acute and chronic respiratory failure with hypercapnia; J44.1 Chronic obstructive pulmonary disease with (acute) exacerbation; I48.92 Unspecified atrial flutter; I50.33 Acute on chronic diastolic (congestive) heart failure; F43.10 Post-traumatic stress disorder, unspecified; E78.5 Hyperlipidemia, unspecified; F03.90 Unspecified dementia, unspecified severity, without behavioral disturbance, psychotic disturbance, mood disturbance, and anxiety; G40.909 Epilepsy, unspecified, not intractable, without status epilepticus; Z88.8 Allergy status to other drugs, medicaments and biological substances; Z87.891 Personal history of nicotine dependence; Z79.899 Other long term (current) drug therapy; Z79.01 Long term (current) use of anticoagulants; Z79.82 Long term (current) use of aspirin; Z79.51 Long term (current) use of inhaled steroids; Z79.52 Long term (current) use of systemic steroids
CPT/HCPCS: 36415; 36600; 71045; 80048; 80053; 82803; 83735; 83880; 84484; 85025; 93005; 93010; 94640; 94644; 94660; 94762; 96374; 96375; 99285-25; A9270; J1940; J2930

== ENCOUNTER 2020-05-27 01:28 | Inpatient (IN) | payer OTHER, MEDICARE ==
[~2020-05-27] VITALS: Ht 177.8 cm; Wt 86.7 kg
== END 2020-05-29 14:14 | disposition home health service (06) | DRG 191 ==
LOC: ER 01:28 → MEDS 01:29
PROVIDERS: ADMIT Internal Medicine
DX: J44.1 Chronic obstructive pulmonary disease with (acute) exacerbation (principal); I48.92 Unspecified atrial flutter; I50.32 Chronic diastolic (congestive) heart failure; J96.11 Chronic respiratory failure with hypoxia; Z79.82 Long term (current) use of aspirin; Z79.01 Long term (current) use of anticoagulants; G40.909 Epilepsy, unspecified, not intractable, without status epilepticus; F03.90 Unspecified dementia, unspecified severity, without behavioral disturbance, psychotic disturbance, mood disturbance, and anxiety; Z87.891 Personal history of nicotine dependence; Z99.81 Dependence on supplemental oxygen; I11.0 Hypertensive heart disease with heart failure; I48.91 Unspecified atrial fibrillation
CPT/HCPCS: 36415; 71045; 80048; 80053; 82803; 83880; 84484; 85025; 93005; 93010; 94640; 94644; 94660; 94762; 96374; 96376; 99285-25; A9270; G0378; J2930; J7512

== ENCOUNTER 2020-06-30 16:57 | Emergency (ER) | payer OTHER, MEDICARE ==
[~2020-06-30] VITALS: Ht 167.6 cm; Wt 86.6 kg
[~2020-06-30 16:57] MED LIST changes: +DELTASONE20 MG PO; +GUAI600T33 PO
[2020-06-30 18:28] LABS: BASOPHILS ABSOLUTE AUTO 0.02 K/mm3 (0.00-0.23); BASOPHILS PERCENT AUTO 0 % (0-2); EOSINOPHILS ABSOLUTE AUTO 0.53 K/mm3 (0.00-0.68); EOSINOPHILS PERCENT AUTO 10 % (0-6); Hematocrit 44.7 % (37.0-53.0); Hemoglobin 13.8 g/dL (13.5-17.5); IMMATURE GRAN ABSOLUTE AUTO 0.02 K/mm3 (0.00-0.10); IMMATURE GRAN PERCENT AUTO 0 % (0-1); LYMPHOCYTES ABSOLUTE AUTO 1.82 K/mm3 (0.84-5.20); LYMPHOCYTES PERCENT AUTO 33 % (21-46); MONOCYTES ABSOLUTE AUTO 0.57 K/mm3 (0.16-1.47); MONOCYTES PERCENT AUTO 10 % (4-13); Mean Corpuscular HGB 29.7 pg (26.0-34.0); Mean Corpuscular HGB Conc 30.9 g/dL (31.5-36.5); Mean Corpuscular Volume 96 fL (80-100); Mean Platelet Volume 8.9 fL (9.1-12.4); NEUTROPHILS ABSOLUTE AUTO 2.63 K/mm3 (1.96-9.15); NEUTROPHILS PERCENT AUTO 47 % (41-73); Platelet Count 236 K/mm3 (150-400); RDW Coefficient Variation 14.1 % (11.7-14.2); RDW Standard Deviation 50.3 fL (35.1-46.3); Red Blood Cell Count 4.64 M/mm3 (4.30-5.90); White Blood Cell Count 5.59 K/mm3 (4.00-11.30)
[2020-06-30 18:39] LABS: Alanine Aminotransfer (ALT/SGP 43 U/L (12-78); Albumin, Blood 3.3 g/dL (3.4-5.0); Albumin/Globulin Ratio 0.9 (0.8-1.8); Alk Phos 109 U/L (50-136); Anion Gap 1 mmol/L (6-16); Aspartate Aminotrans (AST/SGOT 40 U/L (12-37); Bilirubin, Total 0.4 mg/dL (0.1-1.0); Blood Urea Nitrogen 12 mg/dL (8-24); Bun/Creatinine Ratio 16.3 (12.0-20.0); CO2, Blood 31 mmol/L (21-32); Calcium, Blood 8.6 mg/dL (8.5-10.1); Chloride, Blood 106 mmol/L (98-108); Creatinine, Blood 0.74 mg/dL (0.60-1.20); Globulin, Blood 3.7 g/dL (2.2-4.0); Glomerular Filtration Rate >60 (60-); Glucose, Blood 83 mg/dL (70-99); Potassium, Blood 5.6 mmol/L (3.5-5.5); Sodium, Blood 138 mmol/L (136-145)
[2020-06-30] MEDS ORDERED: Lasix40 MG PO (19:32)
== END 2020-06-30 19:44 | disposition home or self-care (01) ==
LOC: ER 16:57
PROVIDERS: Emergency Medicine
DX: E87.70 Fluid overload, unspecified (principal); I11.0 Hypertensive heart disease with heart failure; I50.9 Heart failure, unspecified; E78.5 Hyperlipidemia, unspecified; J44.9 Chronic obstructive pulmonary disease, unspecified; Z87.891 Personal history of nicotine dependence; Z91.041 Radiographic dye allergy status; Z79.899 Other long term (current) drug therapy
CPT/HCPCS: 36415; 71045; 80053; 85025; 93005; 93010; 94640; 96374; 99285-25; J1940

== ENCOUNTER 2020-07-05 20:09 | Inpatient (IN) | payer OTHER, MEDICARE ==
[~2020-07-05] VITALS: Ht 167.6 cm; Wt 86.1 kg
[~2020-07-05 20:09] MED LIST changes: +Lasix40 MG PO
[2020-07-05 21:07] LABS: BASOPHILS ABSOLUTE AUTO 0.02 K/mm3 (0.00-0.23); BASOPHILS PERCENT AUTO 0 % (0-2); EOSINOPHILS ABSOLUTE AUTO 0.55 K/mm3 (0.00-0.68); EOSINOPHILS PERCENT AUTO 8 % (0-6); Hematocrit 45.1 % (37.0-53.0); Hemoglobin 14.1 g/dL (13.5-17.5); IMMATURE GRAN ABSOLUTE AUTO 0.01 K/mm3 (0.00-0.10); IMMATURE GRAN PERCENT AUTO 0 % (0-1); LYMPHOCYTES ABSOLUTE AUTO 2.45 K/mm3 (0.84-5.20); LYMPHOCYTES PERCENT AUTO 36 % (21-46); MONOCYTES ABSOLUTE AUTO 0.82 K/mm3 (0.16-1.47); MONOCYTES PERCENT AUTO 12 % (4-13); Mean Corpuscular HGB 29.7 pg (26.0-34.0); Mean Corpuscular HGB Conc 31.3 g/dL (31.5-36.5); Mean Corpuscular Volume 95 fL (80-100); Mean Platelet Volume 8.7 fL (9.1-12.4); NEUTROPHILS ABSOLUTE AUTO 2.93 K/mm3 (1.96-9.15); NEUTROPHILS PERCENT AUTO 43 % (41-73); Platelet Count 271 K/mm3 (150-400); RDW Coefficient Variation 13.7 % (11.7-14.2); RDW Standard Deviation 48.6 fL (35.1-46.3); Red Blood Cell Count 4.74 M/mm3 (4.30-5.90); White Blood Cell Count 6.78 K/mm3 (4.00-11.30)
[2020-07-05 21:26] LABS: Alanine Aminotransfer (ALT/SGP 34 U/L (12-78); Albumin, Blood 3.7 g/dL (3.4-5.0); Albumin/Globulin Ratio 1.1 (0.8-1.8); Alk Phos 120 U/L (50-136); Anion Gap 2 mmol/L (6-16); Aspartate Aminotrans (AST/SGOT 21 U/L (12-37); Bilirubin, Total 0.2 mg/dL (0.1-1.0); Blood Urea Nitrogen 11 mg/dL (8-24); Bun/Creatinine Ratio 13.1 (12.0-20.0); CO2, Blood 36 mmol/L (21-32); Calcium, Blood 8.4 mg/dL (8.5-10.1); Chloride, Blood 102 mmol/L (98-108); Creatinine, Blood 0.84 mg/dL (0.60-1.20); Globulin, Blood 3.5 g/dL (2.2-4.0); Glomerular Filtration Rate >60 (60-); Glucose, Blood 102 mg/dL (70-99); Sodium, Blood 140 mmol/L (136-145); Total Protein, Blood 7.2 g/dL (6.4-8.2); Troponin I <0.015 ng/mL (0.000-0.040)
[2020-07-06 05:02] LABS: BASOPHILS ABSOLUTE AUTO 0.01 K/mm3 (0.00-0.23); BASOPHILS PERCENT AUTO 0 % (0-2); EOSINOPHILS PERCENT AUTO 0 % (0-6); Hematocrit 43.3 % (37.0-53.0); Hemoglobin 13.6 g/dL (13.5-17.5); Mean Corpuscular HGB 29.7 pg (26.0-34.0); Mean Corpuscular HGB Conc 31.4 g/dL (31.5-36.5); Mean Corpuscular Volume 95 fL (80-100); Mean Platelet Volume 8.9 fL (9.1-12.4); Platelet Count 275 K/mm3 (150-400); RDW Coefficient Variation 13.6 % (11.7-14.2); Red Blood Cell Count 4.58 M/mm3 (4.30-5.90)
--- NOTE | 2020-07-06 05:18 | NUR ---
PSYCHIATRIC ASSISTANT SUMMARY NEW ADMIT FROM THE ED TONIGHT. PT ADMITTED FOR COPD EXACERBATION. ARRIVED TO UNIT ON 4L O2 VIA NC, TITRATED DOWN TO 3L O2 SAT WAS 98% ON 4L. BREATHING TREATMENTS PER RT FOR WHEEZING. PT STATES BREATHING "FEELS A BIT BETTER" THAN WHEN HE CAME IN. PT DOES HAVE SOME CONFUSION/FORGETFULNESS TONIGHT. PT HAS ASKED MULTIPLE TIMES WHERE HE IS AND HOW HE GOT HERE, USUALLY AFTER WAKING UP. GETTING SOLUMEDROL PER EMAR. PT DENIES PAIN, N/V, OR N/T. VSS, WILL CONTINUE TO MONITOR.
[2020-07-06 05:26] LABS: Anion Gap 3 mmol/L (6-16); Blood Urea Nitrogen 10 mg/dL (8-24); Bun/Creatinine Ratio 12.7 (12.0-20.0); CO2, Blood 36 mmol/L (21-32); Calcium, Blood 8.4 mg/dL (8.5-10.1); Chloride, Blood 99 mmol/L (98-108); Creatinine, Blood 0.79 mg/dL (0.60-1.20); Glomerular Filtration Rate >60 (60-); Glucose, Blood 136 mg/dL (70-99); Potassium, Blood 4.3 mmol/L (3.5-5.5); Sodium, Blood 138 mmol/L (136-145)
[2020-07-06 05:29] LABS: IMMATURE GRAN ABSOLUTE AUTO 0.01 K/mm3 (0.00-0.10); IMMATURE GRAN PERCENT AUTO 0 % (0-1); LYMPHOCYTES ABSOLUTE AUTO 0.43 K/mm3 (0.84-5.20); LYMPHOCYTES PERCENT AUTO 9 % (21-46); MONOCYTES ABSOLUTE AUTO 0.05 K/mm3 (0.16-1.47); MONOCYTES PERCENT AUTO 1 % (4-13); NEUTROPHILS PERCENT AUTO 90 % (41-73)
--- NOTE | 2020-07-06 17:32 | NUR ---
SHIFT SUMMARY NO ACUTE CHANGES NOTED TO PT THIS SHIFT, PT A&OX4, ABLE TO MAKE NEEDS KNOWN, PLEASANT AND COOPERATIVE TO CARE. NO C/O PAIN OR ANY DISCOMFORT THIS SHIFT. VSS, PT CONT ON 3LPM O2 VIA NC, SATS >92%. PT's AT BEDSIDE THIS AFTERNOON. PT CALM AND COMFORTABLE IN ROOM AT THIS TIME. BED AT LOWEST POSITION W/ ALARM ON FOR SAFETY. CALL LIGHT WITHIN REACH.
--- NOTE | 2020-07-07 04:42 | NUR ---
HIGHWAY MAINTAINER SUMMARY NO ACUTE CHANGES THIS SHIFT. PT AAOX4 WITH OCCASIONAL FORGETFULNESS. REMAINS ON 3L O2 VIA NC WHICH IS HOME DOSE. SOLUMEDROL BID. O2 SATS MID TO HIGH 90'S THROUGH THE NIGHT. PT DENIES PAIN, N/V. VSS, WILL CONTINUE TO MONITOR.
[2020-07-07] MEDS ORDERED: COMBIVENT RESPIM4 G1 INH (10:24)
--- NOTE | 2020-07-07 14:04 | NUR ---
PT DISCHARGE TO HOME WITH HOME HEALTH. PT HAD RT HOME EVAL THIS AM- PT BROUGHT HOME 02. PT ON 2L OF . IV DC'D. PT EDUCATED ABOUT MEDICATION. MEDS FAXED AT [facility]. PT GIVEN PACKET WITH CURRENT MED LIST. NO C.O OR ANY CONCERNS. PT WILL FU TO PCP INSTRUCTED. AND WILL FU TO HANDY WORKER WHEN HE SEE HIS PROVIDER.
== END 2020-07-07 13:32 | disposition home health service (06) | DRG 189 ==
LOC: ER 20:09 → MEDS 20:10
PROVIDERS: Emergency Medicine; Nurse Practitioner Acute Care; ADMIT Internal Medicine
DX: J96.21 Acute and chronic respiratory failure with hypoxia (principal); J44.1 Chronic obstructive pulmonary disease with (acute) exacerbation; J96.22 Acute and chronic respiratory failure with hypercapnia; Z99.81 Dependence on supplemental oxygen; Z79.01 Long term (current) use of anticoagulants; Z79.82 Long term (current) use of aspirin; G40.909 Epilepsy, unspecified, not intractable, without status epilepticus; Z87.891 Personal history of nicotine dependence; I48.91 Unspecified atrial fibrillation; I10 Essential (primary) hypertension; F03.90 Unspecified dementia, unspecified severity, without behavioral disturbance, psychotic disturbance, mood disturbance, and anxiety
CPT/HCPCS: 36415; 71045; 80048; 80053; 84484; 85025; 93005; 93010; 94640; 94644; 94760; 94761; 96365; 96375; 96376; 97110; 97116; 97161; 99285-25; A9270; G0378; J2930; J3475

== ENCOUNTER 2021-01-16 01:38 | Emergency (ER) | payer MEDICARE ==
[~2021-01-16] VITALS: Ht 167.6 cm; Wt 90.3 kg
[~2021-01-16 01:38] MED LIST changes: +COMBIVENT RESPIM4 G1 INH
[2021-01-16 02:19] LABS: Base Excess Venous 8.3 mmol/L; Bicarbonate Venous 30.2 mmol/L (24.0-30.0); PCO2 Venous 55.9 mmHg (38-42); PO2 Venous 58.1 mmHg (38-42); pH Blood Venous 7.39 (7.34-7.37)
[2021-01-16 02:22] LABS: Anion Gap 8 mmol/L (6-16); Blood Urea Nitrogen 16 mg/dL (8-24); Bun/Creatinine Ratio 22.6 (12.0-20.0); CO2, Blood 31 mmol/L (21-32); Calcium, Blood 9.1 mg/dL (8.5-10.1); Chloride, Blood 96 mmol/L (98-108); Creatinine, Blood 0.71 mg/dL (0.60-1.20); Glomerular Filtration Rate >60 (60-); Glucose, Blood 116 mg/dL (70-99); Potassium, Blood 4.1 mmol/L (3.5-5.5); Sodium, Blood 135 mmol/L (136-145); Troponin I <0.015 ng/mL (0.000-0.040)
[2021-01-16 02:29] LABS: BASOPHILS ABSOLUTE AUTO 0.03 K/mm3 (0.00-0.23); BASOPHILS PERCENT AUTO 0 % (0-2); EOSINOPHILS PERCENT AUTO 0 % (0-6); Hematocrit 42.5 % (37.0-53.0); IMMATURE GRAN ABSOLUTE AUTO 0.05 K/mm3 (0.00-0.10); IMMATURE GRAN PERCENT AUTO 0 % (0-1); LYMPHOCYTES ABSOLUTE AUTO 1.53 K/mm3 (0.84-5.20); LYMPHOCYTES PERCENT AUTO 12 % (21-46); MONOCYTES ABSOLUTE AUTO 2.49 K/mm3 (0.16-1.47); MONOCYTES PERCENT AUTO 19 % (4-13); Mean Corpuscular HGB 30.6 pg (26.0-34.0); Mean Corpuscular HGB Conc 32.9 g/dL (31.5-36.5); Mean Corpuscular Volume 93 fL (80-100); Mean Platelet Volume 8.8 fL (9.1-12.4); NEUTROPHILS ABSOLUTE AUTO 9.23 K/mm3 (1.96-9.15); NEUTROPHILS PERCENT AUTO 69 % (41-73); Platelet Count 373 K/mm3 (150-400); RDW Coefficient Variation 12.7 % (11.7-14.2); RDW Standard Deviation 43.1 fL (35.1-46.3); Red Blood Cell Count 4.58 M/mm3 (4.30-5.90); White Blood Cell Count 13.33 K/mm3 (4.00-11.30)
[2021-01-16] MEDS ORDERED: DELTASONE20 MG PO (04:19)
== END 2021-01-16 05:30 | disposition home or self-care (01) ==
LOC: ER 01:38
PROVIDERS: Student in an Organized Health Care Education/Training Program
DX: J44.1 Chronic obstructive pulmonary disease with (acute) exacerbation (principal); I10 Essential (primary) hypertension; E78.5 Hyperlipidemia, unspecified; G40.909 Epilepsy, unspecified, not intractable, without status epilepticus; Z91.048 Other nonmedicinal substance allergy status; Z79.899 Other long term (current) drug therapy; Z79.02 Long term (current) use of antithrombotics/antiplatelets; Z79.82 Long term (current) use of aspirin; Z87.891 Personal history of nicotine dependence
CPT/HCPCS: 36415; 71045; 80048; 82803; 83880; 84484; 85025; 93005; 93010; 94644; 96374; 99285-25; A9270; J2930

== ENCOUNTER 2021-06-13 05:56 | Emergency (ER) | payer OTHER ==
[~2021-06-13] VITALS: Ht 167.6 cm; Wt 82.5 kg
[2021-06-13 06:29] LABS: BASOPHILS PERCENT AUTO 0 % (0-2); EOSINOPHILS PERCENT AUTO 0 % (0-6); Hematocrit 44.8 % (37.0-53.0); Hemoglobin 14.4 g/dL (13.5-17.5); IMMATURE GRAN ABSOLUTE AUTO 0.01 K/mm3 (0.00-0.10); IMMATURE GRAN PERCENT AUTO 0 % (0-1); LYMPHOCYTES ABSOLUTE AUTO 3.02 K/mm3 (0.84-5.20); LYMPHOCYTES PERCENT AUTO 43 % (21-46); MONOCYTES ABSOLUTE AUTO 0.74 K/mm3 (0.16-1.47); MONOCYTES PERCENT AUTO 11 % (4-13); Mean Corpuscular HGB 30.7 pg (26.0-34.0); Mean Corpuscular HGB Conc 32.1 g/dL (31.5-36.5); Mean Corpuscular Volume 96 fL (80-100); Mean Platelet Volume 8.4 fL (9.1-12.4); NEUTROPHILS ABSOLUTE AUTO 3.27 K/mm3 (1.96-9.15); NEUTROPHILS PERCENT AUTO 47 % (41-73); Platelet Count 228 K/mm3 (150-400); RDW Coefficient Variation 12.7 % (11.7-14.2); RDW Standard Deviation 44.4 fL (35.1-46.3); Red Blood Cell Count 4.69 M/mm3 (4.30-5.90); White Blood Cell Count 7.04 K/mm3 (4.00-11.30)
[2021-06-13 06:49] LABS: Alanine Aminotransfer (ALT/SGP 40 U/L (12-78); Albumin, Blood 3.6 g/dL (3.4-5.0); Albumin/Globulin Ratio 1.1 (0.8-1.8); Alk Phos 121 U/L (50-136); Anion Gap 3 mmol/L (6-16); Aspartate Aminotrans (AST/SGOT 31 U/L (12-37); Bilirubin, Total 0.2 mg/dL (0.1-1.0); Blood Urea Nitrogen 10 mg/dL (8-24); Bun/Creatinine Ratio 14.5 (12.0-20.0); CO2, Blood 36 mmol/L (21-32); Calcium, Blood 8.4 mg/dL (8.5-10.1); Chloride, Blood 99 mmol/L (98-108); Creatinine, Blood 0.69 mg/dL (0.60-1.20); Globulin, Blood 3.4 g/dL (2.2-4.0); Glomerular Filtration Rate >60 (60-); Glucose, Blood 104 mg/dL (70-99); Sodium, Blood 138 mmol/L (136-145)
[2021-06-13] MEDS ORDERED: PRED20 PO (09:28)
[2021-06-13] MEDS ORDERED: AZIT250 PO (09:28)
== END 2021-06-13 10:43 | disposition home or self-care (01) ==
LOC: ER 05:56
PROVIDERS: Emergency Medicine
DX: J44.1 Chronic obstructive pulmonary disease with (acute) exacerbation (principal); I10 Essential (primary) hypertension; E78.00 Pure hypercholesterolemia, unspecified; Z79.899 Other long term (current) drug therapy
CPT/HCPCS: 71045; 80053; 85025; 93005; 93010; 94640; 94644; 94664; 96374; 99285-25; J2930

== ENCOUNTER 2021-08-12 13:53 | Emergency (ER) | payer OTHER ==
[~2021-08-12] VITALS: Ht 167.6 cm; Wt 91.2 kg
[~2021-08-12 13:53] MED LIST changes: +AZIT250 PO
[2021-08-12 15:15] LABS: BASOPHILS PERCENT AUTO 0 % (0-2); EOSINOPHILS ABSOLUTE AUTO 0.01 K/mm3 (0.00-0.68); EOSINOPHILS PERCENT AUTO 0 % (0-6); Hematocrit 39.8 % (37.0-53.0); IMMATURE GRAN ABSOLUTE AUTO 0.01 K/mm3 (0.00-0.10); IMMATURE GRAN PERCENT AUTO 0 % (0-1); LYMPHOCYTES ABSOLUTE AUTO 1.62 K/mm3 (0.84-5.20); LYMPHOCYTES PERCENT AUTO 28 % (21-46); MONOCYTES ABSOLUTE AUTO 0.75 K/mm3 (0.16-1.47); MONOCYTES PERCENT AUTO 13 % (4-13); Mean Corpuscular HGB 30.8 pg (26.0-34.0); Mean Corpuscular HGB Conc 32.7 g/dL (31.5-36.5); Mean Corpuscular Volume 94 fL (80-100); Mean Platelet Volume 8.4 fL (9.1-12.4); NEUTROPHILS ABSOLUTE AUTO 3.41 K/mm3 (1.96-9.15); NEUTROPHILS PERCENT AUTO 59 % (41-73); Platelet Count 268 K/mm3 (150-400); RDW Standard Deviation 41.9 fL (35.1-46.3); Red Blood Cell Count 4.22 M/mm3 (4.30-5.90)
[2021-08-12 15:35] LABS: Albumin, Blood 3.4 g/dL (3.4-5.0); Bilirubin, Total 0.2 mg/dL (0.1-1.0); Bun/Creatinine Ratio 16.7 (12.0-20.0); Creatinine, Blood 0.78 mg/dL (0.60-1.20); Globulin, Blood 3.5 g/dL (2.2-4.0); Potassium, Blood 4.3 mmol/L (3.5-5.5); Total Protein, Blood 6.9 g/dL (6.4-8.2)
== END 2021-08-12 17:26 | disposition home or self-care (01) ==
LOC: ER 13:53
PROVIDERS: Emergency Medicine
DX: R60.0 Localized edema (principal); J44.9 Chronic obstructive pulmonary disease, unspecified; I10 Essential (primary) hypertension; Z99.81 Dependence on supplemental oxygen; Z91.048 Other nonmedicinal substance allergy status; Z79.899 Other long term (current) drug therapy
CPT/HCPCS: 36415; 71045; 80053; 83880; 84484; 85025

== ENCOUNTER 2022-08-29 23:06 | Emergency (ER) | payer OTHER ==
[~2022-08-29] VITALS: Ht 167.6 cm; Wt 83.9 kg
[2022-08-29 23:33] LABS: BASOPHILS PERCENT AUTO 0 % (0-2); EOSINOPHILS ABSOLUTE AUTO 0.01 K/mm3 (0.00-0.68); EOSINOPHILS PERCENT AUTO 0 % (0-6); Hematocrit 40.5 % (37.0-53.0); Hemoglobin 13.1 g/dL (13.5-17.5); IMMATURE GRAN ABSOLUTE AUTO 0.04 K/mm3 (0.00-0.10); IMMATURE GRAN PERCENT AUTO 1 % (0-1); LYMPHOCYTES ABSOLUTE AUTO 2.21 K/mm3 (0.84-5.20); LYMPHOCYTES PERCENT AUTO 27 % (21-46); MONOCYTES ABSOLUTE AUTO 0.69 K/mm3 (0.16-1.47); MONOCYTES PERCENT AUTO 9 % (4-13); Mean Corpuscular HGB 30.8 pg (26.0-34.0); Mean Corpuscular HGB Conc 32.3 g/dL (31.5-36.5); Mean Corpuscular Volume 95 fL (80-100); Mean Platelet Volume 8.5 fL (9.1-12.4); NEUTROPHILS ABSOLUTE AUTO 5.11 K/mm3 (1.96-9.15); NEUTROPHILS PERCENT AUTO 63 % (41-73); Platelet Count 241 K/mm3 (150-400); RDW Coefficient Variation 12.2 % (11.7-14.2); RDW Standard Deviation 42.6 fL (35.1-46.3); Red Blood Cell Count 4.25 M/mm3 (4.30-5.90); White Blood Cell Count 8.06 K/mm3 (4.00-11.30)
[2022-08-29 23:54] LABS: Albumin, Blood 3.4 g/dL (3.4-5.0); Albumin/Globulin Ratio 0.9 (0.8-1.8); Bilirubin, Total 0.2 mg/dL (0.1-1.0); Bun/Creatinine Ratio 6.7 (12.0-20.0); Calcium, Blood 8.7 mg/dL (8.5-10.1); Creatinine, Blood 0.89 mg/dL (0.60-1.20); Globulin, Blood 3.7 g/dL (2.2-4.0); Potassium, Blood 3.8 mmol/L (3.5-5.5); Prolactin 92.6 ng/mL (2.5-17.4); Total Protein, Blood 7.1 g/dL (6.4-8.2)
[2022-08-30 00:38] LABS: Dilantin (Phenytoin), Total 0.6 ug/mL (10.0-20.0)
[2022-08-30 03:30] VITALS: BP 106/73
== END 2022-08-30 03:51 | disposition home or self-care (01) ==
LOC: ER 23:06
PROVIDERS: Emergency Medicine; Student in an Organized Health Care Education/Training Program
DX: G40.909 Epilepsy, unspecified, not intractable, without status epilepticus (principal); F43.10 Post-traumatic stress disorder, unspecified; I10 Essential (primary) hypertension; E78.5 Hyperlipidemia, unspecified
CPT/HCPCS: 70450; 80053; 80185; 84146; 85025; 93005; 93010; 96365; 99284-25; A9270; J1953

== ENCOUNTER 2022-10-28 04:41 | Emergency (ER) | payer OTHER ==
[~2022-10-28] VITALS: Ht 177.8 cm; Wt 90.7 kg
[2022-10-28] MEDS ORDERED: POTA10T PO (05:00)
[2022-10-28 05:09] LABS: BASOPHILS PERCENT AUTO 0 % (0-2); EOSINOPHILS PERCENT AUTO 0 % (0-6); Hematocrit 42.2 % (37.0-53.0); Hemoglobin 13.6 g/dL (13.5-17.5); IMMATURE GRAN ABSOLUTE AUTO 0.03 K/mm3 (0.00-0.10); IMMATURE GRAN PERCENT AUTO 1 % (0-1); LYMPHOCYTES ABSOLUTE AUTO 2.92 K/mm3 (0.84-5.20); LYMPHOCYTES PERCENT AUTO 45 % (21-46); MONOCYTES ABSOLUTE AUTO 0.53 K/mm3 (0.16-1.47); MONOCYTES PERCENT AUTO 8 % (4-13); Mean Corpuscular HGB 30.5 pg (26.0-34.0); Mean Corpuscular HGB Conc 32.2 g/dL (31.5-36.5); Mean Corpuscular Volume 95 fL (80-100); Mean Platelet Volume 8.9 fL (9.1-12.4); NEUTROPHILS ABSOLUTE AUTO 3.01 K/mm3 (1.96-9.15); NEUTROPHILS PERCENT AUTO 46 % (41-73); Platelet Count 254 K/mm3 (150-400); RDW Coefficient Variation 12.2 % (11.7-14.2); RDW Standard Deviation 42.6 fL (35.1-46.3); Red Blood Cell Count 4.46 M/mm3 (4.30-5.90); White Blood Cell Count 6.49 K/mm3 (4.00-11.30)
[2022-10-28 05:29] LABS: Albumin, Blood 3.2 g/dL (3.4-5.0); Albumin/Globulin Ratio 0.8 (0.8-1.8); Bilirubin, Total 0.3 mg/dL (0.1-1.0); Bun/Creatinine Ratio 8.7 (12.0-20.0); Calcium, Blood 8.6 mg/dL (8.5-10.1); Creatinine, Blood 0.92 mg/dL (0.60-1.20); Globulin, Blood 3.9 g/dL (2.2-4.0); Potassium, Blood 4.5 mmol/L (3.5-5.5); Total Protein, Blood 7.1 g/dL (6.4-8.2)
[2022-10-28 07:11] LABS: Dilantin (Phenytoin), Total <0.4 ug/mL (10.0-20.0)
[2022-10-28 09:44] VITALS: BP 122/86
== END 2022-10-28 09:43 | disposition home or self-care (01) ==
LOC: ER 04:41
PROVIDERS: Emergency Medicine
DX: G40.909 Epilepsy, unspecified, not intractable, without status epilepticus (principal); Z88.8 Allergy status to other drugs, medicaments and biological substances; Z79.899 Other long term (current) drug therapy; Z88.6 Allergy status to analgesic agent; F43.10 Post-traumatic stress disorder, unspecified; I10 Essential (primary) hypertension; E78.00 Pure hypercholesterolemia, unspecified; J44.9 Chronic obstructive pulmonary disease, unspecified; I48.91 Unspecified atrial fibrillation
CPT/HCPCS: 80053; 80185; 85025; 93005; 93010; 99284-25; A9270

== ENCOUNTER 2023-04-05 10:05 | Emergency (ER) | payer OTHER ==
[~2023-04-05] VITALS: Ht 167.6 cm; Wt 79.8 kg
[~2023-04-05 10:05] MED LIST changes: +POTA10T PO
[2023-04-05 11:03] LABS: Influenza A, PCR NEGATIVE (NEGATIVE); Influenza B, PCR NEGATIVE (NEGATIVE); Resp Syncytial Virus, PCR NEGATIVE (NEGATIVE); SARS-Cov-2 (COVID-19) PCR, MMC NEGATIVE (NEGATIVE)
[2023-04-05 11:17] LABS: BASOPHILS ABSOLUTE AUTO 0.02 K/mm3 (0.00-0.23); BASOPHILS PERCENT AUTO 0 % (0-2); EOSINOPHILS PERCENT AUTO 0 % (0-6); Hematocrit 42.8 % (37.0-53.0); Hemoglobin 13.6 g/dL (13.5-17.5); IMMATURE GRAN ABSOLUTE AUTO 0.02 K/mm3 (0.00-0.10); IMMATURE GRAN PERCENT AUTO 0 % (0-1); LYMPHOCYTES ABSOLUTE AUTO 1.59 K/mm3 (0.84-5.20); LYMPHOCYTES PERCENT AUTO 15 % (21-46); MONOCYTES ABSOLUTE AUTO 1.19 K/mm3 (0.16-1.47); MONOCYTES PERCENT AUTO 12 % (4-13); Mean Corpuscular HGB 29.2 pg (26.0-34.0); Mean Corpuscular HGB Conc 31.8 g/dL (31.5-36.5); Mean Corpuscular Volume 92 fL (80-100); Mean Platelet Volume 9.6 fL (9.1-12.4); NEUTROPHILS ABSOLUTE AUTO 7.55 K/mm3 (1.96-9.15); NEUTROPHILS PERCENT AUTO 73 % (41-73); Platelet Count 258 K/mm3 (150-400); RDW Coefficient Variation 12.9 % (11.7-14.2); RDW Standard Deviation 43.7 fL (35.1-46.3); Red Blood Cell Count 4.65 M/mm3 (4.30-5.90); White Blood Cell Count 10.37 K/mm3 (4.00-11.30)
[2023-04-05 14:02] LABS: Source, Urine Clean Catch
[2023-04-05 14:08] LABS: Appearance, Urine Clear (Clear); Bilirubin, Urine Neg (Neg); Blood, Urine Neg (Neg); Color, Urine Yellow (P-Yellow); Glucose Qualitative, Urine Neg (Neg); Ketones, Urine Neg (Neg); Leukocyte Esterase, Urine Neg (Neg); Nitrite, Urine Neg (Neg); Protein, Urine 1+ (Neg); Specific Gravity, Urine 1.015 (1.003-1.022); Urobilinogen, Urine NORM (Normal)
[2023-04-05 15:26] LABS: Albumin, Blood 3.6 g/dL (3.4-5.0); Albumin/Globulin Ratio 0.8 (0.8-1.8); Bilirubin, Total 0.8 mg/dL (0.1-1.0); Bun/Creatinine Ratio 22.9 (12.0-20.0); Calcium, Blood 9.1 mg/dL (8.5-10.1); Creatinine, Blood 0.79 mg/dL (0.60-1.20); Globulin, Blood 4.7 g/dL (2.2-4.0); Potassium, Blood 4.3 mmol/L (3.5-5.5); Total Protein, Blood 8.3 g/dL (6.4-8.2)
[2023-04-05] MEDS ORDERED: OxyCODONE HCL 5 MG TAB PO ONE (15:55)
[2023-04-05] MEDS ORDERED: Acetaminophen 325 MG TABLET PO ONE (15:55)
[2023-04-05] MEDS ORDERED: Lidocaine 4% 1 Patch TOP ONE (15:55)
[2023-04-05 17:00] VITALS: BP 136/62
[2023-04-05] MEDS ORDERED: RX Prepack 6 Tabs Oxycodone 5mg UD ONE (17:00)
== END 2023-04-05 17:30 | disposition home or self-care (01) ==
LOC: ER 10:05
PROVIDERS: Student in an Organized Health Care Education/Training Program
DX: S16.1XXA Strain of muscle, fascia and tendon at neck level, initial encounter (principal); Z87.891 Personal history of nicotine dependence; I10 Essential (primary) hypertension; F43.10 Post-traumatic stress disorder, unspecified; E78.5 Hyperlipidemia, unspecified; G40.909 Epilepsy, unspecified, not intractable, without status epilepticus; W18.11XA Fall from or off toilet without subsequent striking against object, initial encounter; Y92.002 Bathroom of unspecified non-institutional (private) residence as the place of occurrence of the external cause
CPT/HCPCS: 0241U; 36415; 70450; 72125; 80053; 85025; 93005; 93010; 99284-25; A9270

== ENCOUNTER 2023-09-04 04:40 | Emergency (ER) | payer OTHER ==
[~2023-09-04 04:40] MED LIST changes: -ATOR20 PO; +TAMSULOSIN HCL0.4 MG PO
[2023-09-04 06:26] LABS: BASOPHILS ABSOLUTE AUTO 0.01 K/mm3 (0.00-0.23); BASOPHILS PERCENT AUTO 0 % (0-2); EOSINOPHILS PERCENT AUTO 0 % (0-6); Hematocrit 39.2 % (37.0-53.0); IMMATURE GRAN ABSOLUTE AUTO 0.01 K/mm3 (0.00-0.10); IMMATURE GRAN PERCENT AUTO 0 % (0-1); LYMPHOCYTES ABSOLUTE AUTO 1.35 K/mm3 (0.84-5.20); LYMPHOCYTES PERCENT AUTO 20 % (21-46); MONOCYTES ABSOLUTE AUTO 0.29 K/mm3 (0.16-1.47); MONOCYTES PERCENT AUTO 4 % (4-13); Mean Corpuscular HGB 29.6 pg (26.0-34.0); Mean Corpuscular HGB Conc 30.6 g/dL (31.5-36.5); Mean Corpuscular Volume 97 fL (80-100); NEUTROPHILS ABSOLUTE AUTO 5.25 K/mm3 (1.96-9.15); NEUTROPHILS PERCENT AUTO 76 % (41-73); Platelet Count 144 K/mm3 (150-400); RDW Standard Deviation 46.5 fL (35.1-46.3); Red Blood Cell Count 4.05 M/mm3 (4.30-5.90); White Blood Cell Count 6.91 K/mm3 (4.00-11.30)
[2023-09-04 06:49] LABS: Albumin, Blood 3.3 g/dL (3.4-5.0); Albumin/Globulin Ratio 0.8 (0.8-1.8); Bilirubin, Total 0.4 mg/dL (0.1-1.0); Bun/Creatinine Ratio 21.7 (12.0-20.0); Calcium, Blood 8.2 mg/dL (8.5-10.1); Creatinine, Blood 0.65 mg/dL (0.60-1.20); Globulin, Blood 3.9 g/dL (2.2-4.0); Potassium, Blood 4.4 mmol/L (3.5-5.5); Total Protein, Blood 7.2 g/dL (6.4-8.2)
[2023-09-04 07:50] LABS: Influenza A, PCR NEGATIVE (NEGATIVE); Influenza B, PCR NEGATIVE (NEGATIVE); Resp Syncytial Virus, PCR NEGATIVE (NEGATIVE); SARS-Cov-2 (COVID-19) PCR, MMC NEGATIVE (NEGATIVE)
[2023-09-04 14:36] LABS: PCO2 Venous 62.8 mmHg (38-42); pH Blood Venous 7.39 (7.34-7.37)
[2023-09-04 14:37] LABS: Base Excess Venous 12.5 mmol/L; Bicarbonate Venous 33.8 mmol/L (24.0-30.0)
== END 2023-09-04 12:35 | disposition home or self-care (01) ==
LOC: ER 04:40
PROVIDERS: Emergency Medicine
DX: J44.1 Chronic obstructive pulmonary disease with (acute) exacerbation (principal); Z91.041 Radiographic dye allergy status; Z79.899 Other long term (current) drug therapy
CPT/HCPCS: 0241U; 71046; 80053; 82803; 83880; 84484; 85025; 93005; 93010; 99285-25

== ENCOUNTER 2023-09-07 19:12 | Inpatient (IN) | payer OTHER ==
[~2023-09-07] VITALS: Ht 172.7 cm; Wt 82.3 kg
[2023-09-07 19:46] LABS: BASOPHILS PERCENT AUTO 0 % (0-2); EOSINOPHILS PERCENT AUTO 0 % (0-6); Hematocrit 43.7 % (37.0-53.0); Hemoglobin 13.5 g/dL (13.5-17.5); IMMATURE GRAN ABSOLUTE AUTO 0.01 K/mm3 (0.00-0.10); IMMATURE GRAN PERCENT AUTO 0 % (0-1); LYMPHOCYTES ABSOLUTE AUTO 0.69 K/mm3 (0.84-5.20); LYMPHOCYTES PERCENT AUTO 12 % (21-46); MONOCYTES ABSOLUTE AUTO 0.61 K/mm3 (0.16-1.47); MONOCYTES PERCENT AUTO 10 % (4-13); Mean Corpuscular HGB 29.5 pg (26.0-34.0); Mean Corpuscular HGB Conc 30.9 g/dL (31.5-36.5); Mean Corpuscular Volume 96 fL (80-100); Mean Platelet Volume 9.5 fL (9.1-12.4); NEUTROPHILS ABSOLUTE AUTO 4.62 K/mm3 (1.96-9.15); NEUTROPHILS PERCENT AUTO 78 % (41-73); Platelet Count 158 K/mm3 (150-400); RDW Coefficient Variation 13.2 % (11.7-14.2); RDW Standard Deviation 46.4 fL (35.1-46.3); Red Blood Cell Count 4.57 M/mm3 (4.30-5.90); White Blood Cell Count 5.93 K/mm3 (4.00-11.30)
[2023-09-07] MEDS ORDERED: NS 1,000 ML IV SCH ×2 (20:00→22:20)
[2023-09-07 20:01] LABS: Albumin, Blood 3.5 g/dL (3.4-5.0); Albumin/Globulin Ratio 0.9 (0.8-1.8); Bilirubin, Total 0.4 mg/dL (0.1-1.0); Bun/Creatinine Ratio 41.3 (12.0-20.0); Calcium, Blood 8.7 mg/dL (8.5-10.1); Creatinine, Blood 1.26 mg/dL (0.60-1.20); Potassium, Blood 4.6 mmol/L (3.5-5.5); Total Protein, Blood 7.5 g/dL (6.4-8.2)
[2023-09-07 20:11] LABS: Magnesium, Blood 2.3 mg/dL (1.6-2.4)
[2023-09-07 20:26] LABS: Base Excess Venous 13.3 mmol/L; Bicarbonate Venous 32.9 mmol/L (24.0-30.0); PCO2 Venous 89.1 mmHg (38-42); pH Blood Venous 7.26 (7.34-7.37)
[2023-09-07 21:09] LABS: Influenza A, PCR NEGATIVE (NEGATIVE); Influenza B, PCR NEGATIVE (NEGATIVE); Resp Syncytial Virus, PCR NEGATIVE (NEGATIVE); SARS-Cov-2 (COVID-19) PCR, MMC NEGATIVE (NEGATIVE)
[2023-09-07] MEDS ORDERED: Loperamide HCl 2 MG Cap PO PRN (22:20)
[2023-09-07] MEDS ORDERED: Ipratropium/Albuterol SulF 2.5-0.5MG/3 ML Amp INH PRN (22:20)
[2023-09-07] MEDS ORDERED: Ondansetron HCl 2 MG / ML 2ML Vial IV PRN (22:20)
[2023-09-07 22:59] LABS: Source, Urine Clean Catch
[2023-09-07] MEDS ORDERED: Enoxaparin 40 MG/0.4 ML SYR SC SCH (23:00)
[2023-09-07] MEDS ORDERED: Azithromycin 500 MG in NS 250 ML IV SCH (23:00)
[2023-09-07] MEDS ORDERED: MethylPREDNISolone Sod Succ 125 MG Vial IV SCH (23:00)
[2023-09-07 23:04] LABS: Bilirubin, Urine Neg (Neg); Blood, Urine 1+ (Neg); Glucose Qualitative, Urine Neg (Neg); Ketones, Urine 1+ (Neg); Leukocyte Esterase, Urine Neg (Neg); Nitrite, Urine Neg (Neg); Protein, Urine 1+ (Neg); Urobilinogen, Urine NORM (Normal)
[2023-09-07 23:10] LABS: Appearance, Urine Clear (Clear); Color, Urine Yellow (P-Yellow)
[2023-09-07 23:13] LABS: Bacteria Not Seen /hpf; Red Blood Cells, Urine 0-2 /hpf (0-2); Squamous Epithelial Cells Not Seen /hpf (Few); White Blood Cells, Urine Not Seen /hpf (0-5)
[2023-09-07 23:18] LABS: U Amphetamine Screen Not Detected; U Barbituate Screen Not Detected; U Benzodiazapine Screen Not Detected; U Buprenorphine Screen Not Detected; U Cannabinoids Screen DETECTED; U Cocaine Screen Not Detected; U Methadone Screen Not Detected; U Methamphetamine Screen Not Detected; U Opiates Screen Not Detected; U Oxycodone Screen Not Detected; U Phencyclidine Screen Not Detected
[2023-09-08] VITALS (9 sets, daily range): BP systolic 106–154; BP diastolic 71–93
[2023-09-08 00:48] LABS: pH Blood Venous 7.43 (7.34-7.37)
[2023-09-08 00:49] LABS: Base Excess Venous 8.9 mmol/L; Bicarbonate Venous 31.4 mmol/L (24.0-30.0); PCO2 Venous 50.6 mmHg (38-42)
[2023-09-08] MEDS ORDERED: levETIRAcetam 500 MG in NS 100 ML IV ONE (02:25)
--- NOTE | 2023-09-08 02:25 | NUR ---
Dr Gordillo to bedside, verbalized concern before she left that pt had not taken his seizure medication for the evening. Verbal order from Dr Gordillo for one time dose IV keppra and will evaluate daily medications.
--- NOTE | 2023-09-08 05:32 | NUR ---
Report to Khushboo GAME DESIGN INSTRUCTOR, plan to transfer to ICU 1 as PCU status.
--- NOTE | 2023-09-08 05:56 | NUR ---
PT ARRIVAL TO ICU PT TRASNFERED TO ICU AT 0540, TRANSITIONED TO ICU BED VIA SLIDER SHEET. PT AWAKE ON TRANSFER, ABLE TO STATE NAME, , AND THAT HE IS IM THE HOSPITAL, UNSURE OF MONTH OR YEAR. PT COMMUNICATES APPROPRIATELY, AND FOLLOWS DIRECTION WHEN PROMPTED. PT MOVES EXTREMITIES EQUALLY BILATERALLY. HR 70'S SINUS, SBP 130'S, MAP >65. PT DENIES CP OR PRESSURE. PT ON 2L O2 VIA NC, OXYGEN SATURATION >95%. PT STATED THAT HE FELT LIKE HE WAS HAVING A HARD TIME BREATHING, BIPAP REPLACED. BIPAP SETTINGS 16/7 30%, OXYGEN SATURATION REMAINS >95%, LUNG SOUNDS CLEAR, DIMINISHED IN THE BASES. ABDOMEN SOFT, NON TENDER, BOWEL TONES ACTIVE IN ALL FOUR QUADRANTS. PT DENIES N/V. PIV IN PLACE TO LAC WITH POSITIVE BLOOD RETURN, SL. PT HAS SCATTERED BRUISING ON HIS LOWER EXTREMITIES, APPEARS TO HAVE HAD AN AMPUTATION TO HIS RIGHT PINKY TOE. BED IN LOWEST POSITION, CALL LIGHT WITHIN REACH, CARE CONTINUES.
[2023-09-08 06:40] LABS: BASOPHILS PERCENT AUTO 0 % (0-2); EOSINOPHILS PERCENT AUTO 0 % (0-6); Hematocrit 39.4 % (37.0-53.0); Hemoglobin 12.2 g/dL (13.5-17.5); IMMATURE GRAN ABSOLUTE AUTO 0.01 K/mm3 (0.00-0.10); IMMATURE GRAN PERCENT AUTO 0 % (0-1); LYMPHOCYTES ABSOLUTE AUTO 1.61 K/mm3 (0.84-5.20); LYMPHOCYTES PERCENT AUTO 22 % (21-46); MONOCYTES PERCENT AUTO 4 % (4-13); Mean Corpuscular HGB 29.8 pg (26.0-34.0); Mean Corpuscular Volume 96 fL (80-100); Mean Platelet Volume 9.6 fL (9.1-12.4); NEUTROPHILS ABSOLUTE AUTO 5.57 K/mm3 (1.96-9.15); NEUTROPHILS PERCENT AUTO 74 % (41-73); Platelet Count 149 K/mm3 (150-400); RDW Coefficient Variation 13.3 % (11.7-14.2); RDW Standard Deviation 47.5 fL (35.1-46.3); Red Blood Cell Count 4.09 M/mm3 (4.30-5.90); White Blood Cell Count 7.49 K/mm3 (4.00-11.30)
[2023-09-08 06:56] LABS: Albumin, Blood 3.1 g/dL (3.4-5.0); Albumin/Globulin Ratio 0.9 (0.8-1.8); Bilirubin, Total 0.4 mg/dL (0.1-1.0); Bun/Creatinine Ratio 42.9 (12.0-20.0); Calcium, Blood 8.7 mg/dL (8.5-10.1); Creatinine, Blood 0.98 mg/dL (0.60-1.20); Globulin, Blood 3.6 g/dL (2.2-4.0); Potassium, Blood 4.8 mmol/L (3.5-5.5); Total Protein, Blood 6.7 g/dL (6.4-8.2)
--- NOTE | 2023-09-08 09:24 | NUR ---
ASSUMED PT CARE PATIENT IS SLEEPING WHEN DOING BEDSIDE REPORT. PT IS ON BIPAP AND RT IS WORKING WITH PT TO ADJUST SETTINGS. PT WAS TACHYPNIC IS THE 20'S AND IS DOWN TO 18 WITH NEW BIPAP SETTINGS. PT HAS ONE PIV WITH IVF GOING AT 75/HR. PT OROSCO AND HAS EQUAL HOGSHEAD STRIPPER AND STRENGTH TO UPPER AND LOWER EXTREMETIES HOWEVER IS WEAK. NOTED TO OF HAD A FALL AT HOME, BED ALARM IS ON. PT IS SLIGHTLY FORGETFUL PER HISTORY. PT WAS REPOSTIONED AND ORAL CARE DONE. VS STABLE AND PT IS AFEBRILE.
--- NOTE | 2023-09-08 10:30 | NUR ---
PT MOVED TO PCU 9 GAVE REPORT TO CARD PLAYER TO RESUME CARE. CAME IN THIS AM AND IS MEETING PT IN PCU. PT WAS TRANSFERED WITH 2L NC WHICH IS TOLD TO BE HIS HOME BASELINE O2.
--- NOTE | 2023-09-08 11:03 | NUR ---
TRANSFER UPDATE REPORT RECIEVED FROM ENGINEERING GROUP MANAGER AT 1050 AT BEDSIDE. PT SLID FROM ICU BED TO PCU BED VIA 3 STAFF MEMBERS. PT ARRIVED ON 3L NC.
[2023-09-08] MEDS ORDERED: Apixaban 5 MG Tab PO SCH (11:50)
[2023-09-08] MEDS ORDERED: LACOSAMIDE150 MG PO (12:52)
[2023-09-08] MEDS ORDERED: TIOT18 INH (12:54)
[2023-09-08] MEDS ORDERED: MIRALAX17 GM PO (12:56)
[2023-09-08] MEDS ORDERED: DILT180 PO (13:22)
[2023-09-08] MEDS ORDERED: VITAMIN D350 MC3 PO (13:23)
[2023-09-08] MEDS ORDERED: FASENRA PE30 MG/1 ML SC (13:24)
[2023-09-08] MEDS ORDERED: Tiotropium Bromide 2.5 MCG/ACT MIST INHAL (10 ACT/4 GM) INH SCH (13:40)
--- NOTE | 2023-09-08 17:27 | NUR ---
SHIFT SUMMARY PT A/OX2-3, COOPERATIVE AND PLEASANT. PT ABLE TO EXPRESS NEEDS TO STAFF WHEN STAFF IS IN THE ROOM. PT 1 PER ASSIST TO BSC, TOLERATED FAIR. PT VSS SINCE ARRIVING TO PCU WITH SATS IN THE 90'S ON 3L NC. NO REPORT OF CHEST PAIN/PRESSURE. NO REPORT OF SOB/DYSPNEA. PT FAMILY AT BEDSIDE WHEN PT ARRIVED TO UNIT, FAMILY UPDATED. NO ACUTE EVENTS.
[2023-09-08] MEDS ORDERED: Lacosamide 50 MG Tablet PO SCH (21:00)
[2023-09-08] MEDS ORDERED: LevETIRAcetam 500 MG Tab PO SCH (21:00)
[2023-09-08] MEDS ORDERED: Atorvastatin 10 MG Tab PO SCH (21:00)
[2023-09-09 00:01] VITALS: BP 104/77
[2023-09-09 04:20] VITALS: BP 130/85
--- NOTE | 2023-09-09 06:21 | NUR ---
End of shift note Pt reports that he has not rested well overnight but each time staff rounded, he seemed to be resting. Pt remains on 2L nc overnight. Some periods of significant wheezing which improved with PRN neb. Pt does not use call light but will call out to make needs known. Pt has not been OOB this shift, using urinal overnight. Multiple family members here this evening to visit. Bed alarm is active. Frequent rounding due to lack of call light usage.
[2023-09-09 08:25] VITALS: BP 102/84
[2023-09-09 08:55] LABS: BASOPHILS ABSOLUTE AUTO 0.01 K/mm3 (0.00-0.23); BASOPHILS PERCENT AUTO 0 % (0-2); EOSINOPHILS PERCENT AUTO 0 % (0-6); Hematocrit 36.6 % (37.0-53.0); Hemoglobin 11.6 g/dL (13.5-17.5); IMMATURE GRAN ABSOLUTE AUTO 0.03 K/mm3 (0.00-0.10); IMMATURE GRAN PERCENT AUTO 0 % (0-1); LYMPHOCYTES ABSOLUTE AUTO 0.44 K/mm3 (0.84-5.20); LYMPHOCYTES PERCENT AUTO 4 % (21-46); MONOCYTES ABSOLUTE AUTO 0.21 K/mm3 (0.16-1.47); MONOCYTES PERCENT AUTO 2 % (4-13); Mean Corpuscular HGB 29.6 pg (26.0-34.0); Mean Corpuscular HGB Conc 31.7 g/dL (31.5-36.5); Mean Corpuscular Volume 93 fL (80-100); Mean Platelet Volume 9.2 fL (9.1-12.4); NEUTROPHILS ABSOLUTE AUTO 9.47 K/mm3 (1.96-9.15); NEUTROPHILS PERCENT AUTO 93 % (41-73); Platelet Count 167 K/mm3 (150-400); RDW Coefficient Variation 13.5 % (11.7-14.2); Red Blood Cell Count 3.92 M/mm3 (4.30-5.90); White Blood Cell Count 10.16 K/mm3 (4.00-11.30)
[2023-09-09] MEDS ORDERED: Polyethylene Glycol 3350 17 gm PO SCH (09:00)
[2023-09-09] MEDS ORDERED: Furosemide 40 MG Tab PO SCH (09:00)
[2023-09-09] MEDS ORDERED: Diltiazem HCl 180 MG Cap.CD PO SCH (09:00)
[2023-09-09] MEDS ORDERED: Cholecalciferol 1000 Unit Tablet (=25MCG) PO SCH (09:00)
[2023-09-09] MEDS ORDERED: Multivitamins 1 Tab PO SCH (09:00)
[2023-09-09 09:15] LABS: Bun/Creatinine Ratio 35.5 (12.0-20.0); Calcium, Blood 8.7 mg/dL (8.5-10.1); Creatinine, Blood 0.82 mg/dL (0.60-1.20); Potassium, Blood 3.7 mmol/L (3.5-5.5)
[2023-09-09 09:19] LABS: BAND PERCENT MAN 1 % (0-8); BASOPHILS PERCENT MAN 0 % (0-2); EOSINOPHILS PERCENT MAN 0 % (0-6); LYMPHOCYTES PERCENT MAN 6 % (21-46); MONOCYTES PERCENT MAN 1 % (4-13); NEUTROPHILS ABSOLUTE MAN 9.44 K/mm3 (1.96-9.15); SEG NEUTROPHILS PERCENT MAN 92 % (41-73); TOTAL CELLS COUNTED 100
[2023-09-09 11:50] VITALS: BP 123/84
[2023-09-09] MEDS ORDERED: Cyanocobalamin 500 MCG Tab PO SCH (12:00)
[2023-09-09] MEDS ORDERED: B-12500 MC2 PO (12:07)
[2023-09-09] MEDS ORDERED: IPRAT-ALBUT 0.5-3 ML INH (12:09)
[2023-09-09] MEDS ORDERED: AZIT250 PO (12:11)
[2023-09-09] MEDS ORDERED: PRED20 PO (12:15)
[2023-09-09] MEDS ORDERED: VISBIOME 112.51 EACH PO (12:18)
--- NOTE | 2023-09-09 14:43 | NUR ---
DISCHARGE UPDATE DISCHARGE PACKET GONE OVER WITH PT AND PT AT 1345. PT DISCHARGED AT 1357 VIA WHEELCHAIR AND ON 2L NC. PT ABLE TO TRANSFER TO AND FROM WHEELCHAIR ON HIS OWN WITH MINIMAL ASSISTANCE, TOLERATED WELL. DISCHARGE PACKET WITH SPOUSE AT TIME OF DISCHARGE. PT PERSONAL BELONGINGS WITH PT AT TIME OF DISCHARGE.
== END 2023-09-09 14:00 | disposition home health service (06) | DRG 189 ==
LOC: ER 19:12 → ERHOLD 19:13 → ICUE 22:16 → PCU 22:16 → ICUE 22:16 → ERHOLD 09-08 05:42 → ICUE 09-08 05:42 → PCU 09-08 05:58
PROVIDERS: Internal Medicine; Student in an Organized Health Care Education/Training Program; ADMIT Internal Medicine
PROC: 5A09357 Assistance with Respiratory Ventilation, Less than 24 Consecutive Hours, Continuous Positive Airway Pressure (ICD-10-PCS; principal; 2023-09-07)
DX: J96.21 Acute and chronic respiratory failure with hypoxia (principal); G93.41 Metabolic encephalopathy; J44.1 Chronic obstructive pulmonary disease with (acute) exacerbation; I48.20 Chronic atrial fibrillation, unspecified; I50.32 Chronic diastolic (congestive) heart failure; N17.9 Acute kidney failure, unspecified; E87.29 Other acidosis; G40.909 Epilepsy, unspecified, not intractable, without status epilepticus; E86.0 Dehydration; F43.10 Post-traumatic stress disorder, unspecified; E78.00 Pure hypercholesterolemia, unspecified; I11.0 Hypertensive heart disease with heart failure; F03.90 Unspecified dementia, unspecified severity, without behavioral disturbance, psychotic disturbance, mood disturbance, and anxiety; K52.9 Noninfective gastroenteritis and colitis, unspecified; Z91.041 Radiographic dye allergy status; Z79.899 Other long term (current) drug therapy; Z79.01 Long term (current) use of anticoagulants; Z79.51 Long term (current) use of inhaled steroids; Z87.19 Personal history of other diseases of the digestive system; Z98.890 Other specified postprocedural states
CPT/HCPCS: 0241U; 36415; 70450; 71046; 80048; 80053; 81001; 82550; 82803; 83735; 83880; 84145; 84484; 85025; 93005; 93010; 94640; 94660; 94664; 94762; 96360; 96361; 97165; 97535; 99285-25; A9270; J0456; J1650; J1953; J2919; J7030; J7050

== ENCOUNTER 2023-09-26 00:22 | Emergency (ER) | payer OTHER ==
[~2023-09-26] VITALS: Ht 167.6 cm; Wt 81.7 kg
[~2023-09-26 00:22] MED LIST changes: +B-12500 MC2 PO; +FASENRA PE30 MG/1 ML SC; +IPRAT-ALBUT 0.5-3 ML INH; +LACOSAMIDE150 MG PO; +MIRALAX17 GM PO; +TIOT18 INH; +VISBIOME 112.51 EACH PO; +VITAMIN D350 MC3 PO
[2023-09-26 00:36] LABS: BASOPHILS ABSOLUTE AUTO 0.01 K/mm3 (0.00-0.23); BASOPHILS PERCENT AUTO 0 % (0-2); EOSINOPHILS PERCENT AUTO 0 % (0-6); Hematocrit 37.9 % (37.0-53.0); Hemoglobin 11.9 g/dL (13.5-17.5); IMMATURE GRAN ABSOLUTE AUTO 0.01 K/mm3 (0.00-0.10); IMMATURE GRAN PERCENT AUTO 0 % (0-1); LYMPHOCYTES ABSOLUTE AUTO 1.98 K/mm3 (0.84-5.20); LYMPHOCYTES PERCENT AUTO 27 % (21-46); MONOCYTES ABSOLUTE AUTO 0.69 K/mm3 (0.16-1.47); MONOCYTES PERCENT AUTO 9 % (4-13); Mean Corpuscular HGB 29.6 pg (26.0-34.0); Mean Corpuscular HGB Conc 31.4 g/dL (31.5-36.5); Mean Corpuscular Volume 94 fL (80-100); NEUTROPHILS ABSOLUTE AUTO 4.72 K/mm3 (1.96-9.15); NEUTROPHILS PERCENT AUTO 64 % (41-73); Platelet Count 232 K/mm3 (150-400); RDW Coefficient Variation 13.4 % (11.7-14.2); RDW Standard Deviation 46.1 fL (35.1-46.3); Red Blood Cell Count 4.02 M/mm3 (4.30-5.90); White Blood Cell Count 7.41 K/mm3 (4.00-11.30)
[2023-09-26 00:59] LABS: Albumin, Blood 2.8 g/dL (3.4-5.0); Albumin/Globulin Ratio 0.8 (0.8-1.8); Bilirubin, Total 0.3 mg/dL (0.1-1.0); Bun/Creatinine Ratio 17.4 (12.0-20.0); Creatinine, Blood 0.75 mg/dL (0.60-1.20); Globulin, Blood 3.3 g/dL (2.2-4.0); Potassium, Blood 4.5 mmol/L (3.5-5.5); Total Protein, Blood 6.1 g/dL (6.4-8.2)
[2023-09-26 01:30] VITALS: BP 106/74
== END 2023-09-26 02:13 | disposition home or self-care (01) ==
LOC: ER 00:22
PROVIDERS: Emergency Medicine
DX: J44.9 Chronic obstructive pulmonary disease, unspecified (principal); R09.02 Hypoxemia; Z99.81 Dependence on supplemental oxygen; Z88.8 Allergy status to other drugs, medicaments and biological substances; Z79.899 Other long term (current) drug therapy; F43.10 Post-traumatic stress disorder, unspecified; I10 Essential (primary) hypertension; E78.00 Pure hypercholesterolemia, unspecified; G40.909 Epilepsy, unspecified, not intractable, without status epilepticus; I48.91 Unspecified atrial fibrillation
CPT/HCPCS: 71045; 80053; 85025; 99284-25

== ENCOUNTER 2023-10-18 09:13 | Emergency (ER) | payer OTHER ==
[~2023-10-18] VITALS: Ht 167.6 cm; Wt 70.8 kg
[2023-10-18 09:36] LABS: BASOPHILS ABSOLUTE AUTO 0.01 K/mm3 (0.00-0.23); BASOPHILS PERCENT AUTO 0 % (0-2); EOSINOPHILS PERCENT AUTO 0 % (0-6); Hematocrit 40.9 % (37.0-53.0); Hemoglobin 12.7 g/dL (13.5-17.5); IMMATURE GRAN ABSOLUTE AUTO 0.02 K/mm3 (0.00-0.10); IMMATURE GRAN PERCENT AUTO 0 % (0-1); LYMPHOCYTES ABSOLUTE AUTO 2.16 K/mm3 (0.84-5.20); LYMPHOCYTES PERCENT AUTO 31 % (21-46); MONOCYTES ABSOLUTE AUTO 0.67 K/mm3 (0.16-1.47); MONOCYTES PERCENT AUTO 10 % (4-13); Mean Corpuscular HGB 29.5 pg (26.0-34.0); Mean Corpuscular HGB Conc 31.1 g/dL (31.5-36.5); Mean Corpuscular Volume 95 fL (80-100); Mean Platelet Volume 8.6 fL (9.1-12.4); NEUTROPHILS ABSOLUTE AUTO 4.08 K/mm3 (1.96-9.15); NEUTROPHILS PERCENT AUTO 59 % (41-73); Platelet Count 284 K/mm3 (150-400); RDW Coefficient Variation 13.2 % (11.7-14.2); RDW Standard Deviation 46.5 fL (35.1-46.3); Red Blood Cell Count 4.31 M/mm3 (4.30-5.90); White Blood Cell Count 6.94 K/mm3 (4.00-11.30)
[2023-10-18] MEDS ORDERED: Lactated Ringer's 1,000 ML IV ONE (09:40)
[2023-10-18 10:00] LABS: Albumin, Blood 3.4 g/dL (3.4-5.0); Albumin/Globulin Ratio 0.9 (0.8-1.8); Bilirubin, Total 0.4 mg/dL (0.1-1.0); Bun/Creatinine Ratio 13.1 (12.0-20.0); Calcium, Blood 9.3 mg/dL (8.5-10.1); Creatinine, Blood 0.84 mg/dL (0.60-1.20); Globulin, Blood 3.8 g/dL (2.2-4.0); Magnesium, Blood 1.9 mg/dL (1.6-2.4); Potassium, Blood 4.1 mmol/L (3.5-5.5); Total Protein, Blood 7.2 g/dL (6.4-8.2)
[2023-10-18 10:09] LABS: Source, Urine Clean Catch
[2023-10-18 10:12] LABS: Appearance, Urine Clear (Clear); Bilirubin, Urine Neg (Neg); Blood, Urine 2+ (Neg); Color, Urine Yellow (P-Yellow); Glucose Qualitative, Urine Neg (Neg); Ketones, Urine Neg (Neg); Leukocyte Esterase, Urine 1+ (Neg); Nitrite, Urine Neg (Neg); Protein, Urine 2+ (Neg); Specific Gravity, Urine 1.015 (1.003-1.022); Urobilinogen, Urine 1+ (Normal)
[2023-10-18 10:21] LABS: Squamous Epithelial Cells Rare /hpf (Few); White Blood Cells, Urine 0-2 /hpf (0-5)
[2023-10-18 10:22] LABS: Bacteria Few /hpf; Mucus Mod (0-Heavy); Renal Epithelial Mod /hpf (0-Rare)
[2023-10-18] MEDS ORDERED: FentaNYL Citrate 50 MCG/ML 2 ML Injection IV ONE (10:35)
[2023-10-18] MEDS ORDERED: CefTRIAXone Sodium 1,000 MG in NS 100 ML IV ONE (11:05)
[2023-10-18] MEDS ORDERED: CEFP200 PO (11:06)
[2023-10-18] MEDS ORDERED: OxyCODONE HCL 5 MG TAB PO ONE (11:20)
[2023-10-18 12:15] VITALS: BP 166/142
[2023-10-22] MEDS ORDERED: ACET500 PO (15:53)
[2023-10-22] MEDS ORDERED: LIDO700A20 TOP (15:53)
== END 2023-10-18 12:41 | disposition home or self-care (01) ==
LOC: ER 09:13
PROVIDERS: Physician Assistant
DX: N39.0 Urinary tract infection, site not specified (principal); F03.90 Unspecified dementia, unspecified severity, without behavioral disturbance, psychotic disturbance, mood disturbance, and anxiety; R53.1 Weakness; R29.6 Repeated falls; F43.10 Post-traumatic stress disorder, unspecified; I10 Essential (primary) hypertension; E78.00 Pure hypercholesterolemia, unspecified; J44.9 Chronic obstructive pulmonary disease, unspecified; I48.91 Unspecified atrial fibrillation; E78.5 Hyperlipidemia, unspecified; Z87.891 Personal history of nicotine dependence; Z79.52 Long term (current) use of systemic steroids; Z79.899 Other long term (current) drug therapy; Z91.041 Radiographic dye allergy status
CPT/HCPCS: 51701; 71045; 80053; 81001; 82947; 83735; 83880; 85025; 87086; 93005; 93010; 96361; 96365; 96375; 99285-25; A9270; J0696; J3010; J7120

== ENCOUNTER 2023-10-20 00:41 | Emergency (ER) | payer OTHER ==
[~2023-10-20] VITALS: Ht 167.6 cm; Wt 93.0 kg
[~2023-10-20 00:41] MED LIST changes: +CEFP200 PO
[2023-10-20] MEDS ORDERED: TraMADol HCl 50 MG Tab PO ONE (01:55)
[2023-10-20 02:09] LABS: BASOPHILS ABSOLUTE AUTO 0.01 K/mm3 (0.00-0.23); BASOPHILS PERCENT AUTO 0 % (0-2); EOSINOPHILS PERCENT AUTO 0 % (0-6); Hematocrit 34.9 % (37.0-53.0); Hemoglobin 11.1 g/dL (13.5-17.5); IMMATURE GRAN ABSOLUTE AUTO 0.03 K/mm3 (0.00-0.10); IMMATURE GRAN PERCENT AUTO 0 % (0-1); LYMPHOCYTES PERCENT AUTO 31 % (21-46); MONOCYTES PERCENT AUTO 14 % (4-13); Mean Corpuscular HGB Conc 31.8 g/dL (31.5-36.5); Mean Corpuscular Volume 94 fL (80-100); Mean Platelet Volume 8.9 fL (9.1-12.4); NEUTROPHILS ABSOLUTE AUTO 4.67 K/mm3 (1.96-9.15); NEUTROPHILS PERCENT AUTO 55 % (41-73); Platelet Count 259 K/mm3 (150-400); RDW Coefficient Variation 13.5 % (11.7-14.2); White Blood Cell Count 8.51 K/mm3 (4.00-11.30)
[2023-10-20 02:15] LABS: Albumin, Blood 2.9 g/dL (3.4-5.0); Albumin/Globulin Ratio 0.8 (0.8-1.8); Bilirubin, Total 0.5 mg/dL (0.1-1.0); Bun/Creatinine Ratio 15.7 (12.0-20.0); Calcium, Blood 8.3 mg/dL (8.5-10.1); Creatinine, Blood 0.77 mg/dL (0.60-1.20); Globulin, Blood 3.5 g/dL (2.2-4.0); Potassium, Blood 4.2 mmol/L (3.5-5.5); Total Protein, Blood 6.4 g/dL (6.4-8.2)
[2023-10-20 03:01] LABS: Source, Urine Clean Catch
[2023-10-20 03:03] LABS: Bilirubin, Urine Neg (Neg); Blood, Urine Neg (Neg); Glucose Qualitative, Urine Neg (Neg); Ketones, Urine Neg (Neg); Leukocyte Esterase, Urine Neg (Neg); Nitrite, Urine Neg (Neg); Protein, Urine Neg (Neg); Urobilinogen, Urine NORM (Normal)
[2023-10-20 03:07] LABS: Appearance, Urine Clear (Clear); Color, Urine Yellow (P-Yellow)
[2023-10-20 04:00] VITALS: BP 119/76
[2023-10-20] MEDS ORDERED: LIDO700A20 TOP (04:27)
[2023-10-20] MEDS ORDERED: Lidocaine 4% 1 Patch TOP ONE (04:30)
[2023-10-22] MEDS ORDERED: LIDO700A20 TOP (15:53)
[2023-10-22] MEDS ORDERED: ACET500 PO (15:53)
== END 2023-10-20 05:18 | disposition home or self-care (01) ==
LOC: ER 00:41
PROVIDERS: Emergency Medicine
DX: S30.0XXA Contusion of lower back and pelvis, initial encounter (principal); D64.9 Anemia, unspecified; F43.10 Post-traumatic stress disorder, unspecified; I10 Essential (primary) hypertension; E78.00 Pure hypercholesterolemia, unspecified; J44.9 Chronic obstructive pulmonary disease, unspecified; I48.91 Unspecified atrial fibrillation; W18.30XA Fall on same level, unspecified, initial encounter; Z79.52 Long term (current) use of systemic steroids; Z79.899 Other long term (current) drug therapy; Z91.041 Radiographic dye allergy status
CPT/HCPCS: 74176; 80053; 81003; 84484; 85025; 93005; 93010; 99284-25; A9270

== ENCOUNTER 2023-11-01 23:24 | Inpatient (IN) | payer OTHER ==
[~2023-11-01] VITALS: Ht 167.6 cm; Wt 75.6 kg
[~2023-11-01 23:24] MED LIST changes: +ACET500 PO; +LIDO700A20 TOP
[2023-11-01 23:53] LABS: BASOPHILS ABSOLUTE AUTO 0.01 K/mm3 (0.00-0.23); BASOPHILS PERCENT AUTO 0 % (0-2); EOSINOPHILS PERCENT AUTO 0 % (0-6); Hematocrit 37.2 % (37.0-53.0); Hemoglobin 11.3 g/dL (13.5-17.5); IMMATURE GRAN ABSOLUTE AUTO 0.01 K/mm3 (0.00-0.10); IMMATURE GRAN PERCENT AUTO 0 % (0-1); LYMPHOCYTES PERCENT AUTO 22 % (21-46); MONOCYTES ABSOLUTE AUTO 0.63 K/mm3 (0.16-1.47); MONOCYTES PERCENT AUTO 10 % (4-13); Mean Corpuscular HGB 30.4 pg (26.0-34.0); Mean Corpuscular HGB Conc 30.4 g/dL (31.5-36.5); Mean Corpuscular Volume 100 fL (80-100); Mean Platelet Volume 8.5 fL (9.1-12.4); NEUTROPHILS ABSOLUTE AUTO 4.32 K/mm3 (1.96-9.15); NEUTROPHILS PERCENT AUTO 68 % (41-73); Platelet Count 237 K/mm3 (150-400); RDW Coefficient Variation 15.2 % (11.7-14.2); RDW Standard Deviation 53.9 fL (35.1-46.3); Red Blood Cell Count 3.72 M/mm3 (4.30-5.90); White Blood Cell Count 6.37 K/mm3 (4.00-11.30)
[2023-11-01 23:54] LABS: PCO2 Arterial 92.8 mmHg (35-45); PO2 Arterial 188 mmHg (80-100)
[2023-11-02] VITALS (26 sets, daily range): BP systolic 86–136; BP diastolic 39–86
[2023-11-02 00:14] LABS: Albumin, Blood 3.6 g/dL (3.4-5.0); Bilirubin, Total 0.6 mg/dL (0.1-1.0); Calcium, Blood 9.1 mg/dL (8.5-10.1); Creatinine, Blood 0.81 mg/dL (0.60-1.20); Globulin, Blood 3.5 g/dL (2.2-4.0); Potassium, Blood 4.3 mmol/L (3.5-5.5); Total Protein, Blood 7.1 g/dL (6.4-8.2)
[2023-11-02] MEDS ORDERED: MethylPREDNISolone Sod Succ 125 MG Vial IV ONE (00:30)
[2023-11-02 00:33] LABS: Influenza A, PCR NEGATIVE (NEGATIVE); Influenza B, PCR NEGATIVE (NEGATIVE); Resp Syncytial Virus, PCR NEGATIVE (NEGATIVE); SARS-Cov-2 (COVID-19) PCR, MMC NEGATIVE (NEGATIVE)
[2023-11-02 01:18] LABS: PCO2 Arterial 90.2 mmHg (35-45); PO2 Arterial 127 mmHg (80-100); pH Blood Arterial 7.29 (7.35-7.45)
[2023-11-02] MEDS ORDERED: Acetaminophen 650 MG Supp PR PRN (01:20)
[2023-11-02] MEDS ORDERED: Acetaminophen 325 MG TABLET PO PRN (01:20)
[2023-11-02] MEDS ORDERED: Ipratropium/Albuterol SulF 2.5-0.5MG/3 ML Amp INH SCH (01:50)
[2023-11-02] MEDS ORDERED: Tiotropium Bromide 2.5 MCG/ACT MIST INHAL (10 ACT/4 GM) INH SCH (01:50)
[2023-11-02] MEDS ORDERED: Azithromycin 500 MG in NS 250 ML IV SCH (02:00)
[2023-11-02] MEDS ORDERED: Albuterol 2.5 MG/3 ML VIAL INH PRN (02:15)
[2023-11-02] MEDS ORDERED: Mometasone/Formoterol MDI 200/5 mcg 13 GM INH SCH (02:55)
[2023-11-02] MEDS ORDERED: FentaNYL Citrate 50 MCG/ML 2 ML Injection IV PRN (03:00)
[2023-11-02] MEDS ORDERED: NS 1,000 ML IV SCH (03:05)
[2023-11-02] MEDS ORDERED: NS 250 ML IV PRN (03:25)
[2023-11-02 04:10] LABS: Base Excess Venous 20.3 mmol/L; Bicarbonate Venous 39.2 mmol/L (24.0-30.0); PCO2 Venous 85.2 mmHg (38-42); pH Blood Venous 7.34 (7.34-7.37)
[2023-11-02 04:24] LABS: BASOPHILS PERCENT AUTO 0 % (0-2); EOSINOPHILS PERCENT AUTO 0 % (0-6); Hematocrit 37.6 % (37.0-53.0); Hemoglobin 11.2 g/dL (13.5-17.5); IMMATURE GRAN ABSOLUTE AUTO 0.03 K/mm3 (0.00-0.10); IMMATURE GRAN PERCENT AUTO 1 % (0-1); LYMPHOCYTES ABSOLUTE AUTO 0.47 K/mm3 (0.84-5.20); LYMPHOCYTES PERCENT AUTO 7 % (21-46); MONOCYTES ABSOLUTE AUTO 0.06 K/mm3 (0.16-1.47); MONOCYTES PERCENT AUTO 1 % (4-13); Mean Corpuscular HGB 29.8 pg (26.0-34.0); Mean Corpuscular HGB Conc 29.8 g/dL (31.5-36.5); Mean Corpuscular Volume 100 fL (80-100); Mean Platelet Volume 8.7 fL (9.1-12.4); NEUTROPHILS PERCENT AUTO 91 % (41-73); Platelet Count 247 K/mm3 (150-400); RDW Coefficient Variation 15.3 % (11.7-14.2); RDW Standard Deviation 54.8 fL (35.1-46.3); Red Blood Cell Count 3.76 M/mm3 (4.30-5.90); White Blood Cell Count 6.56 K/mm3 (4.00-11.30)
--- NOTE | 2023-11-02 04:26 | NUR ---
TRANSFER TO ICU/ASSUMPTION OF CARE PT TRANSFERED TO ICU AT 0248 VIA ER GABE. TRANSFERED TO ICU BED VIA SLIDER SHEET. PT RESPONSIVE TO VERBAL STIMULI, ABLE TO STATE NAME AND , UNSURE OF LOCATION/YEAR. PT GRIMACING, SHAKES HEAD NO TO PAIN. PT MOVES EXTREMITIES EQUALLY BILATERALLY. HR 60'S SBP 90-100'S, MAP >65. PT ON BIPAP 22/8 30%, OXYGEN SATURATION >95%. ABDOMEN SOFT, BOWEL TONES HYPOACTIVE. PIV IN PLACE TO RIGHT HAND AND JAQUI. POWERGLIDE PLACED TO LUIS ARMANDO, PT TOLERATED WELL. NS INFUSING AT 75MLS/HR. BED IN LOWEST POSTION, CALL LIGHT WITHIN REACH, CARE CONTINUES.
[2023-11-02 04:32] LABS: International Normalized Ratio 1.02; Prothrombin Time Results 10.9 Sec (9.7-11.5)
[2023-11-02 04:34] LABS: Albumin, Blood 3.6 g/dL (3.4-5.0); Anion Gap 9 mmol/L (3-11); Blood Urea Nitrogen 13 mg/dL (8-24); Bun/Creatinine Ratio 14.2 (12.0-20.0); CO2, Blood 39 mmol/L (21-32); Calcium, Blood 9.3 mg/dL (8.5-10.1); Chloride, Blood 97 mmol/L (98-108); Creatinine, Blood 0.92 mg/dL (0.60-1.20); Glomerular Filtration Rate 87 (60-); Glucose, Blood 115 mg/dL (70-99); Phosphorus, Blood 2.1 mg/dL (2.5-4.9); Potassium, Blood 4.5 mmol/L (3.5-5.5); Sodium, Blood 140 mmol/L (136-145)
[2023-11-02] MEDS ORDERED: Sodium Phosphate 20 MM in Dextrose 5% 500 ML IV ONE (05:30)
--- NOTE | 2023-11-02 05:52 | NUR ---
SHIFT SUMMARY PT CONTINUES TO REST IN BED, RESPONSIVE TO VERBAL STIMULI. PT ORIENTED TO SELF, ABLE TO STATE NAME AND . PT FOLLOWS DIRECTION WHEN PROMPTED, MOVES EXTREMITIES EQUALLY BILATERALLY. HR 60'S, SBP 80-120'S. PT ON BIPAP 22/8 30%, OXYGEN SATURATION >95%. ABDOMEN SOFT, BOWEL TONES HYPOACTIVE. PIV IN PLACE TO RIGHT HAND AND JAQUI. POWERGLIDE IN PLACE TO LUIS ARMANDO. NS INFUSING AT 75MLS/HR. BED IN LOWEST POSTION, CALL LIGHT WITHIN REACH, CARE CONTINUES.
[2023-11-02] MEDS ORDERED: MethylPREDNISolone Sod Succ 125 MG Vial IV SCH (06:00)
[2023-11-02] MEDS ORDERED: MethylPREDNISolone Sod Succ 40 MG VIAL IV SCH (06:00)
[2023-11-02] MEDS ORDERED: Furosemide 40 MG Tab PO SCH (09:00)
[2023-11-02] MEDS ORDERED: Apixaban 5 MG Tab PO SCH (09:00)
[2023-11-02] MEDS ORDERED: Lacosamide 50 MG Tablet PO SCH (09:00)
[2023-11-02] MEDS ORDERED: Diltiazem HCl 180 MG Cap.CD PO SCH (09:00)
[2023-11-02] MEDS ORDERED: Lactobacil 2-S.Thermo-Bifido 1 1 Cap PO SCH (09:00)
[2023-11-02] MEDS ORDERED: Cyanocobalamin 500 MCG Tab PO SCH (09:00)
[2023-11-02] MEDS ORDERED: LevETIRAcetam 500 MG Tab PO SCH (09:00)
--- NOTE | 2023-11-02 09:10 | NUR ---
ASSUMED CARE / DR CASTANEDA: REPORT RECEIVED FROM SUSAN GORE. ASSUMED CARE OF THIS PT AT APPROX 0700. ON ASSESSMENT, THE PT IS A&O TO SELF & PERSON. HE IS SOMEWHAT FORGETFUL WHEN ATTEMPTING TO EXPRESS HIS NEEDS, BUT OVERALL DOES BETTER WITH HIS AT BEDSIDE TO AIDE IN COMMUNICATION. LS DIM IN BASES, PT INITIALLY ON BIPAP WITH SETTINGS: 22/8 & 30% FIO2. TRANSITIONED TO 4L NC WITH O2 SATS > 98%, WILL TITRATE DOWN TOLERATED. MONITOR SHOWS SR WITH HR 60-70s, BP STABLE. PT HAS C/O MILD ABD PAIN, TYLENOL PER EMAR. VOIDS SMALL AMNTS OF DARK ANGEL URINE USING URINAL WITHOUT DIFFICULTY. SKIN CONDITION OVERALL INTACT, Q2H REPOSITIONING TO MAINTAIN SKIN INTEGRITY. PROVIDER AT BEDSIDE THIS AM TO EVAL PT. DISCUSSED NPO STATUS & PROVIDER STS THAT IF THE PT CONTINUES TO TOLERATE BEING OFF BIPAP & PASSES A BEDSIDE SWALLOW EVAL, IT IS OKAY TO GIVE PO MEDS & ORDER A DIET. THE PT WILL BE PCU STATUS IF REPEAT VBG RESULT CONTINUES TO IMPROVE. WILL CONTINUE TO MONITOR & UPDATE NEEDED.
[2023-11-02 11:20] LABS: Base Excess Venous 14.8 mmol/L; Bicarbonate Venous 35.6 mmol/L (24.0-30.0); PCO2 Venous 60.9 mmHg (38-42); pH Blood Venous 7.42 (7.34-7.37)
--- NOTE | 2023-11-02 13:43 | NUR ---
Upon receiving a referral for spiritual care, I visited the patient. His spouse, Hawa, is bedside and very supportive. They talk about their Jew shaheed, their membership at [employer] and the strength and hope they get from their shaheed. Hawa, talks about being [place], the many yrs of living in [place] and their love for [place] and their final move to [place] to live near their [facility]. They have lived locally for 18 yrs. They have strong family and roman catholic support but still Hawa admits to being worried about her . I provided anxiety containment and prayer. THey both responded well and showed signs of greater peace and hope. I will cotninue to remain available to patient and family.
--- NOTE | 2023-11-02 17:59 | NUR ---
SHIFT SUMMARY: NO ACUTE CHANGES SINCE PRIOR UPDATES. PT IS PCU STATUS. HE REMAINS A&O TO SELF, PERSON, PLACE & FOLLOWING DIRECTIONS. HE IS COUNCIL & DOES BECOME MORE ANXIOUS WITHOUT FAMILY AT BEDSIDE. LS DIM IN BASES, PT ON 2L NC WITH O2 SATS > 95%. MONITOR SHOWS SR WITH HR 70s, BP STABLE. PT DENIES GI COMPLAINTS, NO BM THIS SHIFT. VOIDING DARK YELLOW URINE WITHOUT DIFFICULTY USING URINAL. SKIN CONDITION OVERALL INTACT, Q2H REPOSITIONING TO MAINTAIN SKIN INTEGRITY. WILL CONTINUE TO MONITOR & REPORT OFF TO ONCOMING RN.
--- NOTE | 2023-11-02 19:30 | NUR ---
ASSUMPTION OF CARE ASSUMED CARE OF PATIENT AT 1900, BEDSIDE SHIFT REPORT RECEIVED FROM CHESTER RN. PT RESTING IN BED, ORIENTED TO SELF, ABLE TO STATE NAME AND , UNSURE OF LOCATION/YEAR. PT ANXIOUS AT TIMES, APPEARS TO DO BETTER WITH FMAILY AT BEDSIDE. PT FOLLOWS DIRECTION WHEN PROMPTED, MOVES EXTREMITIES EQUALLY BILATERALLY. HR 80'S SINUS, MAP >65. PT ON 2LPM VIA NC, OXYGEN SATURATION >95%. ABDOMEN SOFT, TENDER ON PALPATION, BOWEL TONES ACTIVE IN ALL FOUR QUADRANTS. PT USES URINAL TO VOID. PIV IN PLACE TO JAQUI SL. POWERGLIDE IN PLACE TO LUIS ARMANDO SL. BED IN LOWEST POSITION, CALL LIGHT WITHIN REACH. PT DAUGHTER AT THE BEDSIDE. CARE CONTINUES.
[2023-11-02] MEDS ORDERED: Atorvastatin 10 MG Tab PO SCH (21:00)
[2023-11-02 21:38] LABS: Base Excess Venous 13.7 mmol/L; Bicarbonate Venous 35.2 mmol/L (24.0-30.0); PCO2 Venous 57.2 mmHg (38-42); pH Blood Venous 7.43 (7.34-7.37)
[2023-11-03] VITALS (7 sets, daily range): BP systolic 83–131; BP diastolic 55–79
[2023-11-03 04:59] LABS: Bicarbonate Venous 35.1 mmol/L (24.0-30.0); PCO2 Venous 52.3 mmHg (38-42); pH Blood Venous 7.46 (7.34-7.37)
[2023-11-03 05:02] LABS: BASOPHILS ABSOLUTE AUTO 0.01 K/mm3 (0.00-0.23); BASOPHILS PERCENT AUTO 0 % (0-2); EOSINOPHILS PERCENT AUTO 0 % (0-6); Hemoglobin 9.1 g/dL (13.5-17.5); IMMATURE GRAN ABSOLUTE AUTO 0.04 K/mm3 (0.00-0.10); IMMATURE GRAN PERCENT AUTO 0 % (0-1); LYMPHOCYTES ABSOLUTE AUTO 0.58 K/mm3 (0.84-5.20); LYMPHOCYTES PERCENT AUTO 6 % (21-46); MONOCYTES ABSOLUTE AUTO 0.15 K/mm3 (0.16-1.47); MONOCYTES PERCENT AUTO 2 % (4-13); Mean Corpuscular HGB 30.4 pg (26.0-34.0); Mean Corpuscular HGB Conc 32.5 g/dL (31.5-36.5); Mean Platelet Volume 8.7 fL (9.1-12.4); NEUTROPHILS ABSOLUTE AUTO 8.46 K/mm3 (1.96-9.15); NEUTROPHILS PERCENT AUTO 92 % (41-73); Platelet Count 210 K/mm3 (150-400); RDW Coefficient Variation 15.6 % (11.7-14.2); RDW Standard Deviation 52.1 fL (35.1-46.3); Red Blood Cell Count 2.99 M/mm3 (4.30-5.90); White Blood Cell Count 9.24 K/mm3 (4.00-11.30)
[2023-11-03 05:03] LABS: Mean Corpuscular Volume 94 fL (80-100)
--- NOTE | 2023-11-03 05:22 | NUR ---
SHIFT SUMMARY NO ACUTE CHANGES THIS SHIFT. PT RESTING IN BED, SLEEPING BUT AROUSABLE. PT ORIENTED TO SELF, ABLE TO STATE NAME AND , UNSURE OF LOCATION AND DATE. PT MOVES EXTREMITIES EQUALLY BILATERALLY. HR 80'S SINUS, MAP >65. PT ON BIPAP 22/8 30%, OXYGEN SATURATION >95%. ABDOMEN SOFT, TENDER ON PALPATION, BOWEL TONES ACTIVE IN ALL FOUR QUADRANTS. PIV IN PLACE TO JAQUI SL. POWERGLIDE IN PLACE TO LUIS ARMANDO SL. BED IN LOWEST POSITION, CALL LIGHT WITHIN REACH. PT DAUGHTER AT THE BEDSIDE. CARE CONTINUES.
[2023-11-03 05:31] LABS: Albumin, Blood 2.9 g/dL (3.4-5.0); Anion Gap 11 mmol/L (3-11); Blood Urea Nitrogen 18 mg/dL (8-24); Bun/Creatinine Ratio 20.7 (12.0-20.0); CO2, Blood 32 mmol/L (21-32); Calcium, Blood 8.9 mg/dL (8.5-10.1); Chloride, Blood 96 mmol/L (98-108); Creatinine, Blood 0.87 mg/dL (0.60-1.20); Glomerular Filtration Rate 91 (60-); Glucose, Blood 164 mg/dL (70-99); Phosphorus, Blood 1.7 mg/dL (2.5-4.9); Potassium, Blood 3.9 mmol/L (3.5-5.5); Sodium, Blood 135 mmol/L (136-145)
[2023-11-03] MEDS ORDERED: Sodium Phosphate 20 MM in Dextrose 5% 500 ML IV ONE (06:00)
[2023-11-03] MEDS ORDERED: MethylPREDNISolone Sod Succ 125 MG Vial IV SCH (18:00)
--- NOTE | 2023-11-03 18:29 | NUR ---
PT SUMMARY; PT WAS TRANSFERRED AT THE BEGINNING OF THE SHIFT FROM ICU. PT ON 2L OF O2 BIPAP ON STANDBY AT THE BEDSIDE PT WAS ABLE TO USE A COUPLE TIMES FOR AN HOUR EACH TIME, VITALS HRR ST 100'S, SBP 120'S, SATS KEPT ABOVE 90%, AFEBRILE. PT HAS BEEN GETTING UP VIA WALKER AND GAITBELT 1-2PA, USES BATHROOM/BSC WAS UP IN THE RECLINER FOR LUNCH. PT ABLE TO WORK WITH PT/OT, RECOMMENDS HOME HEALTH, PT'S TRILOGY HAS BEEN DELIVERED THIS AFTERNOON. FAMILY IN THE ROOM AT THE BEDSIDE T/P SHIFT. PT STILL HAS SOME EPISODES OF CONFUSION AND ANXIETY. PT ALSO ABLE TO DEMONSTRATE USE OF SPIROMETER. REQUESTED MD FOR BOWEL CARE PT HAS BEEN TRYING TO HAVE A BM WIHT NO SUCCESS PT WAS GIVEN PRUNE JUICE WELL. PT HAS BEEN EATING AND DRINKING WITH NO ISSUES. USES URINAL FOR VOIDING. NO OTHER ISSUES REPORTED FOR THE SHIFT, WILL REPORT TO ONCOMING SHIFT
--- NOTE | 2023-11-03 20:26 | NUR ---
Nursing update- Patient/family requesting something for anxiety prior to Trilogy application tonight due to having a difficult time keeping the BiPap on the night before. Order obtained for Ativan 0.5 mg IV x 1 from sherry FORBES. Also received an order for colace 100mg BID since the patient has been constipated.
[2023-11-03] MEDS ORDERED: Docusate Sodium 100 MG Cap PO SCH (21:00)
[2023-11-03] MEDS ORDERED: LORazepam 2 MG/ML 1ML Injection IV ONE (23:00)
--- NOTE | 2023-11-04 02:22 | NUR ---
SHIFT UPDATE- Patient pressed the call light and had his urinal in hand upon entering the room, daughter at bedside then voices her frustration "Why havent you given him anything! He hasn't slept!". I informed her I did give him IV ativan, and it appears the patient is awake because he needs help with the urinal. I assisted the patient in using the bathroom, patient then asked me to turn his light and TV off so he could go to sleep. Will suggest to day RN/MD tomorrow to order something for insomnia even though patient has not tried to get OOB and has kept his triology machine on without incident. If Daughter at bedside continues to disrupt the healing environment we will ask her to leave for the night as visiting hours are over and allowing her to stay overnight is a courtesy. This RN is capable of monitoring the patient overnight.
[2023-11-04 04:30] VITALS: BP 140/85
[2023-11-04 04:33] LABS: Base Excess Venous 11.9 mmol/L; Bicarbonate Venous 34.1 mmol/L (24.0-30.0); PCO2 Venous 48.1 mmHg (38-42); pH Blood Venous 7.48 (7.34-7.37)
[2023-11-04 04:37] LABS: Hemoglobin 9.8 g/dL (13.5-17.5); Mean Corpuscular HGB 30.6 pg (26.0-34.0); Mean Corpuscular HGB Conc 32.7 g/dL (31.5-36.5); Mean Corpuscular Volume 94 fL (80-100); Platelet Count 247 K/mm3 (150-400); RDW Coefficient Variation 16.3 % (11.7-14.2); RDW Standard Deviation 55.8 fL (35.1-46.3); White Blood Cell Count 15.22 K/mm3 (4.00-11.30)
[2023-11-04 05:03] LABS: Albumin, Blood 3.5 g/dL (3.4-5.0); Anion Gap 12 mmol/L (3-11); Blood Urea Nitrogen 21 mg/dL (8-24); Bun/Creatinine Ratio 24.1 (12.0-20.0); CO2, Blood 31 mmol/L (21-32); Chloride, Blood 96 mmol/L (98-108); Creatinine, Blood 0.87 mg/dL (0.60-1.20); Glomerular Filtration Rate 91 (60-); Glucose, Blood 128 mg/dL (70-99); Phosphorus, Blood 3.6 mg/dL (2.5-4.9); Sodium, Blood 135 mmol/L (136-145)
--- NOTE | 2023-11-04 05:12 | NUR ---
SHIFT SUMMARY- PATIENT SLEPT FOLLOWING PRN FENTANYL ADMINISTRATION FOR BACK PAIN/DISCOMFORT. DAUGHTER AT BEDSIDE APOLOGETIC FOR OUTBURST EARLIER, TEARFUL AND EXPRESSES HER DIFFICULTY ADJUSTING TO HER FATHER AGING AND HIS FORGETFULNESS. EMOTIONAL SUPPORT PROVIDED. PATIENT VSS ON TRILOGY DEVICE, 2LNC WHEN AWAKE (BASELINE). USING THE URINAL TO VOID, ASSISTANCE NEEDED. LUIS ARMANDO MIDLINE WNL, LABS DRAWN THIS AM. ON A SOFT DIET DUE TO BEING EDENTULOUS. GETTING OOB WITH ASST X 2- PT/OT RECOMMENDING SNF BUT FAMILY/PATIENT REFUSING AND REQUESTING HOME WITH HHC. ON ZITHROMAX EMPIRICALLY FOR COPD EXACERBATION. NSR/ST ON TELE.
[2023-11-04 07:41] VITALS: BP 132/98
[2023-11-04] MEDS ORDERED: Polyethylene Glycol 3350 17 gm PO ONE (10:05)
[2023-11-04 11:17] VITALS: BP 105/83
[2023-11-04] MEDS ORDERED: Docusate Sodium/Senna 1 Tab PO SCH (11:45)
--- NOTE | 2023-11-04 11:51 | NUR ---
Spiritual care visit conducted. Patient is sitting on a chair and alert. Family are present. Hawa, tells me the the patient may d/c home today. They share about his progress and about the restful night. I provided a prayer and blessing. Patient and family voice their appreciation.
[2023-11-04] MEDS ORDERED: Bisacodyl 10 MG Supp PR PRN (13:25)
[2023-11-04] MEDS ORDERED: Sod Phosphate/Sod Biphosphate 132 ML BTL PR ONE (15:55)
[2023-11-04] MEDS ORDERED: STIOLTO RESPIMAT4 G1 PO (16:39)
[2023-11-04] MEDS ORDERED: SENNA PLUS PO (16:46)
[2023-11-04] MEDS ORDERED: PRED20 PO (16:50)
[2023-11-04] MEDS ORDERED: FLUTICASONE-SA1 EAC1 INH (16:50)
--- NOTE | 2023-11-04 17:33 | NUR ---
END OF SHIFT SUMMARY: A&OX2-3 PATIENT WAS NOT ABLE TO ANSWER ABOUT WHAT BROUGHT HIM HERE AND GOT CONFUSED THROUGHOUT SHIFT. GETS ANXIOUS WHEN AND DAUGHTER ARE NOT AT BEDSIDE. BED ALARM IS ON AND NEEDS TO BE REORINTED TO CALL BEFORE GETTING UP. BLOOD PRESSURE HAS BEEN STABLE AND ON TELE SHOWING 1ST DEGREE AV BLOCK WITH THE RATE IN 90'S. SATTING >92% ON HEATED HIGH FLOW OXYGEN VIA NASAL CANNULA. USED THE TRIOLOGY ALL NIGHT AND TOLERATED IT WELL. IS A 1 PERSON ASSIST USING THE FRONT WHEELED WALKER. PT AND OT WORKED WITH HIM AND THE PLAN IS SET TO DISCHARGE TODAY AWAIITNG A BOWEL MOVEMENT. HE WAS GIVEN MIRALAX AND SENNAKOT TO HELP PASS A BM. BY LUNCH TIME PT STILL HAD NOT BASSED A BM AND A SUPPOSITORY WAS GIVEN. ENEMA WAS GIVEN, PT HAD A SMALL BOWEL MOVEMENT, DISCHARGE PACKET PUT TOGETHER AND AWAITING FINISHING A SHOWER. DISCHARGE TO HOME WITH HOME HEALTH.
== END 2023-11-04 18:12 | disposition home or self-care (01) | DRG 189 ==
LOC: ER 23:24 → PCU 11-02 01:16 → ICUE 11-02 01:16 → PCU 11-03 07:53
PROVIDERS: Emergency Medicine; Family Medicine; ADMIT Internal Medicine
PROC: 5A09357 Assistance with Respiratory Ventilation, Less than 24 Consecutive Hours, Continuous Positive Airway Pressure (ICD-10-PCS; principal; 2023-11-02)
PROC: 4A133R1 Monitoring of Arterial Saturation, Peripheral, Percutaneous Approach (ICD-10-PCS; 2023-11-02)
DX: J96.21 Acute and chronic respiratory failure with hypoxia (principal); G92.8 Other toxic encephalopathy; I50.32 Chronic diastolic (congestive) heart failure; J44.1 Chronic obstructive pulmonary disease with (acute) exacerbation; J82.83 Eosinophilic asthma; J98.11 Atelectasis; J96.22 Acute and chronic respiratory failure with hypercapnia; F03.90 Unspecified dementia, unspecified severity, without behavioral disturbance, psychotic disturbance, mood disturbance, and anxiety; F43.10 Post-traumatic stress disorder, unspecified; E78.00 Pure hypercholesterolemia, unspecified; G40.909 Epilepsy, unspecified, not intractable, without status epilepticus; I11.0 Hypertensive heart disease with heart failure; I48.91 Unspecified atrial fibrillation; Z98.890 Other specified postprocedural states; Z87.19 Personal history of other diseases of the digestive system; Z91.041 Radiographic dye allergy status; Z79.899 Other long term (current) drug therapy; Z79.01 Long term (current) use of anticoagulants; Z79.2 Long term (current) use of antibiotics
CPT/HCPCS: 0241U; 36600; 71045; 80053; 80069; 82803; 83735; 83880; 84145; 84484; 85025; 85027; 85610; 85730; 93005; 93010; 93306; 94640; 94660; 94664; 94762; 96374; 97110; 97112; 97162; 97166; 97530; 97535; 99285-25; A9270; C1751; J0456; J2060; J2919; J3010; J7030; J7050; J7060

== ENCOUNTER 2023-12-04 23:16 | Emergency (ER) | payer OTHER ==
[~2023-12-04] VITALS: Ht 162.6 cm; Wt 99.8 kg
[~2023-12-04 23:16] MED LIST changes: +FLUTICASONE-SA1 EAC1 INH; +SENNA PLUS PO; +STIOLTO RESPIMAT4 G1 PO
[2023-12-05 00:17] LABS: BASOPHILS ABSOLUTE AUTO 0.01 K/mm3 (0.00-0.23); BASOPHILS PERCENT AUTO 0 % (0-2); EOSINOPHILS PERCENT AUTO 0 % (0-6); Hematocrit 37.8 % (37.0-53.0); IMMATURE GRAN ABSOLUTE AUTO 0.01 K/mm3 (0.00-0.10); IMMATURE GRAN PERCENT AUTO 0 % (0-1); LYMPHOCYTES ABSOLUTE AUTO 1.64 K/mm3 (0.84-5.20); LYMPHOCYTES PERCENT AUTO 25 % (21-46); MONOCYTES ABSOLUTE AUTO 0.66 K/mm3 (0.16-1.47); MONOCYTES PERCENT AUTO 10 % (4-13); Mean Corpuscular HGB 30.6 pg (26.0-34.0); Mean Corpuscular HGB Conc 31.7 g/dL (31.5-36.5); Mean Corpuscular Volume 96 fL (80-100); Mean Platelet Volume 8.9 fL (9.1-12.4); NEUTROPHILS ABSOLUTE AUTO 4.25 K/mm3 (1.96-9.15); NEUTROPHILS PERCENT AUTO 65 % (41-73); Platelet Count 172 K/mm3 (150-400); RDW Standard Deviation 49.2 fL (35.1-46.3); Red Blood Cell Count 3.92 M/mm3 (4.30-5.90); White Blood Cell Count 6.57 K/mm3 (4.00-11.30)
[2023-12-05 00:22] LABS: Base Excess Venous 13.9 mmol/L; Bicarbonate Venous 34.8 mmol/L (24.0-30.0); PCO2 Venous 71.9 mmHg (38-42); pH Blood Venous 7.35 (7.34-7.37)
[2023-12-05 00:36] LABS: Bun/Creatinine Ratio 20.9 (12.0-20.0); Calcium, Blood 8.9 mg/dL (8.5-10.1); Creatinine, Blood 0.86 mg/dL (0.60-1.20); Potassium, Blood 4.2 mmol/L (3.5-5.5)
[2023-12-05 01:03] LABS: Influenza A, PCR NEGATIVE (NEGATIVE); Influenza B, PCR NEGATIVE (NEGATIVE); Resp Syncytial Virus, PCR NEGATIVE (NEGATIVE); SARS-Cov-2 (COVID-19) PCR, MMC NEGATIVE (NEGATIVE)
[2023-12-05 01:31] VITALS: BP 119/68
== END 2023-12-05 02:32 | disposition home or self-care (01) ==
LOC: ER 23:16
PROVIDERS: Emergency Medicine
DX: R06.02 Shortness of breath (principal); F43.10 Post-traumatic stress disorder, unspecified; I10 Essential (primary) hypertension; E78.00 Pure hypercholesterolemia, unspecified; J44.9 Chronic obstructive pulmonary disease, unspecified; I48.91 Unspecified atrial fibrillation; Z79.899 Other long term (current) drug therapy; Z79.52 Long term (current) use of systemic steroids; Z79.51 Long term (current) use of inhaled steroids; Z91.041 Radiographic dye allergy status
CPT/HCPCS: 0241U; 71045; 80048; 82803; 84484; 85025; 85379; 93005; 93010; 99285-25

== ENCOUNTER 2024-01-19 08:03 | Emergency (ER) | payer OTHER ==
[~2024-01-19] VITALS: Ht 170.2 cm; Wt 107.5 kg
[2024-01-19] MEDS ORDERED: METOPROLOL (08:15)
[2024-01-19] MEDS ORDERED: DILT60 (08:15)
[2024-01-19 08:47] LABS: BASOPHILS ABSOLUTE AUTO 0.01 K/mm3 (0.00-0.23); BASOPHILS PERCENT AUTO 0 % (0-2); EOSINOPHILS PERCENT AUTO 0 % (0-6); Hematocrit 37.7 % (37.0-53.0); Hemoglobin 11.9 g/dL (13.5-17.5); IMMATURE GRAN ABSOLUTE AUTO 0.02 K/mm3 (0.00-0.10); IMMATURE GRAN PERCENT AUTO 0 % (0-1); LYMPHOCYTES PERCENT AUTO 36 % (21-46); MONOCYTES ABSOLUTE AUTO 0.84 K/mm3 (0.16-1.47); MONOCYTES PERCENT AUTO 11 % (4-13); Mean Corpuscular HGB 30.1 pg (26.0-34.0); Mean Corpuscular HGB Conc 31.6 g/dL (31.5-36.5); Mean Corpuscular Volume 95 fL (80-100); Mean Platelet Volume 8.9 fL (9.1-12.4); NEUTROPHILS ABSOLUTE AUTO 3.84 K/mm3 (1.96-9.15); NEUTROPHILS PERCENT AUTO 52 % (41-73); Platelet Count 214 K/mm3 (150-400); RDW Coefficient Variation 13.2 % (11.7-14.2); RDW Standard Deviation 47.2 fL (35.1-46.3); Red Blood Cell Count 3.96 M/mm3 (4.30-5.90); White Blood Cell Count 7.41 K/mm3 (4.00-11.30)
[2024-01-19 09:09] LABS: Albumin, Blood 3.2 g/dL (3.4-5.0); Albumin/Globulin Ratio 0.9 (0.8-1.8); Bilirubin, Total 0.3 mg/dL (0.1-1.0); Bun/Creatinine Ratio 11.4 (12.0-20.0); Creatinine, Blood 0.79 mg/dL (0.60-1.20); Globulin, Blood 3.5 g/dL (2.2-4.0); Potassium, Blood 4.3 mmol/L (3.5-5.5); Total Protein, Blood 6.7 g/dL (6.4-8.2)
[2024-01-19 11:00] VITALS: BP 146/90
== END 2024-01-19 12:00 | disposition home or self-care (01) ==
LOC: ER 08:03
PROVIDERS: Emergency Medicine
DX: R09.02 Hypoxemia (principal); I48.91 Unspecified atrial fibrillation; I10 Essential (primary) hypertension; E78.00 Pure hypercholesterolemia, unspecified; F43.10 Post-traumatic stress disorder, unspecified; Z99.81 Dependence on supplemental oxygen; Z79.51 Long term (current) use of inhaled steroids; Z79.899 Other long term (current) drug therapy; Z91.041 Radiographic dye allergy status; Z87.09 Personal history of other diseases of the respiratory system
CPT/HCPCS: 71045; 80053; 85025; 93005; 93010; 99285-25

== ENCOUNTER 2024-01-26 00:24 | Observation (INO) | payer OTHER ==
[~2024-01-26] VITALS: Ht 175.3 cm; Wt 77.1 kg
[~2024-01-26 00:24] MED LIST changes: +DILT60; +METOPROLOL
[2024-01-26] MEDS ORDERED: Ipratropium/Albuterol SulF 2.5-0.5MG/3 ML Amp INH PRN (00:40)
[2024-01-26 00:50] LABS: BASOPHILS ABSOLUTE AUTO 0.01 K/mm3 (0.00-0.23); BASOPHILS PERCENT AUTO 0 % (0-2); EOSINOPHILS PERCENT AUTO 0 % (0-6); Hematocrit 40.5 % (37.0-53.0); Hemoglobin 12.4 g/dL (13.5-17.5); IMMATURE GRAN ABSOLUTE AUTO 0.01 K/mm3 (0.00-0.10); IMMATURE GRAN PERCENT AUTO 0 % (0-1); LYMPHOCYTES ABSOLUTE AUTO 2.47 K/mm3 (0.84-5.20); LYMPHOCYTES PERCENT AUTO 30 % (21-46); MONOCYTES ABSOLUTE AUTO 0.79 K/mm3 (0.16-1.47); MONOCYTES PERCENT AUTO 10 % (4-13); Mean Corpuscular HGB Conc 30.6 g/dL (31.5-36.5); Mean Corpuscular Volume 98 fL (80-100); NEUTROPHILS ABSOLUTE AUTO 4.89 K/mm3 (1.96-9.15); NEUTROPHILS PERCENT AUTO 60 % (41-73); Platelet Count 242 K/mm3 (150-400); RDW Coefficient Variation 13.3 % (11.7-14.2); RDW Standard Deviation 47.8 fL (35.1-46.3); Red Blood Cell Count 4.13 M/mm3 (4.30-5.90); White Blood Cell Count 8.17 K/mm3 (4.00-11.30)
[2024-01-26 01:10] LABS: Alanine Aminotransfer (ALT/SGP 20 U/L (12-78); Albumin, Blood 3.4 g/dL (3.4-5.0); Albumin/Globulin Ratio 0.8 (0.8-1.8); Alk Phos 85 U/L (50-136); Anion Gap 6 mmol/L (3-11); Aspartate Aminotrans (AST/SGOT 23 U/L (12-37); Bilirubin, Total 0.2 mg/dL (0.1-1.0); Blood Urea Nitrogen 17 mg/dL (8-24); Bun/Creatinine Ratio 19.6 (12.0-20.0); CO2, Blood 40 mmol/L (21-32); Calcium, Blood 9.8 mg/dL (8.5-10.1); Chloride, Blood 99 mmol/L (98-108); Creatinine, Blood 0.87 mg/dL (0.60-1.20); Glomerular Filtration Rate 90 (60-); Glucose, Blood 109 mg/dL (70-99); Potassium, Blood 4.8 mmol/L (3.5-5.5); Sodium, Blood 140 mmol/L (136-145); Total Protein, Blood 7.4 g/dL (6.4-8.2)
[2024-01-26 03:26] LABS: Salicylate <1.7 mg/dL (2.8-20.0); Thyroid Stimulating Hormone 0.428 uIU/mL (0.360-4.800)
[2024-01-26 03:31] LABS: Base Excess Venous 17.4 mmol/L; Bicarbonate Venous 38.1 mmol/L (24.0-30.0); PCO2 Venous 71.3 mmHg (38-42); pH Blood Venous 7.38 (7.34-7.37)
[2024-01-26] MEDS ORDERED: Ondansetron HCl 2 MG / ML 2ML Vial IV PRN (03:40)
[2024-01-26] MEDS ORDERED: FLU VACC TS2024-25(6MOS UP)/PF 45 MCG/0.5 ML SYRINGE IM ONE (03:40)
[2024-01-26 03:41] LABS: Acetaminophen, Random <2.0 ug/mL (10.0-30.0)
[2024-01-26] MEDS ORDERED: NS 1,000 ML IV ONE (03:45)
[2024-01-26] MEDS ORDERED: Enoxaparin 40 MG/0.4 ML SYR SC SCH (09:00)
[2024-01-26 10:48] LABS: Source, Urine Straight Cath
[2024-01-26 10:51] LABS: Appearance, Urine Clear (Clear); Bilirubin, Urine Neg (Neg); Blood, Urine Neg (Neg); Color, Urine Yellow (P-Yellow); Glucose Qualitative, Urine Neg (Neg); Ketones, Urine Neg (Neg); Leukocyte Esterase, Urine Neg (Neg); Nitrite, Urine Neg (Neg); Protein, Urine 1+ (Neg); Urobilinogen, Urine NORM (Normal)
[2024-01-26 11:21] LABS: U Amphetamine Screen Not Detected; U Barbituate Screen Not Detected; U Benzodiazapine Screen Not Detected; U Buprenorphine Screen Not Detected; U Cannabinoids Screen DETECTED; U Cocaine Screen Not Detected; U Methadone Screen Not Detected; U Methamphetamine Screen Not Detected; U Opiates Screen Not Detected; U Oxycodone Screen Not Detected; U Phencyclidine Screen Not Detected
[2024-01-26 13:23] LABS: BASOPHILS PERCENT AUTO 0 % (0-2); EOSINOPHILS PERCENT AUTO 0 % (0-6); Hematocrit 38.9 % (37.0-53.0); Hemoglobin 11.9 g/dL (13.5-17.5); IMMATURE GRAN ABSOLUTE AUTO 0.01 K/mm3 (0.00-0.10); IMMATURE GRAN PERCENT AUTO 0 % (0-1); LYMPHOCYTES ABSOLUTE AUTO 2.14 K/mm3 (0.84-5.20); LYMPHOCYTES PERCENT AUTO 35 % (21-46); MONOCYTES ABSOLUTE AUTO 0.56 K/mm3 (0.16-1.47); MONOCYTES PERCENT AUTO 9 % (4-13); Mean Corpuscular HGB 30.3 pg (26.0-34.0); Mean Corpuscular HGB Conc 30.6 g/dL (31.5-36.5); Mean Corpuscular Volume 99 fL (80-100); Mean Platelet Volume 9.3 fL (9.1-12.4); NEUTROPHILS ABSOLUTE AUTO 3.48 K/mm3 (1.96-9.15); NEUTROPHILS PERCENT AUTO 56 % (41-73); Platelet Count 233 K/mm3 (150-400); RDW Coefficient Variation 13.2 % (11.7-14.2); RDW Standard Deviation 48.5 fL (35.1-46.3); Red Blood Cell Count 3.93 M/mm3 (4.30-5.90); White Blood Cell Count 6.19 K/mm3 (4.00-11.30)
[2024-01-26 13:53] LABS: Albumin, Blood 3.2 g/dL (3.4-5.0); Albumin/Globulin Ratio 0.9 (0.8-1.8); Bilirubin, Total 0.4 mg/dL (0.1-1.0); Bun/Creatinine Ratio 22.9 (12.0-20.0); Calcium, Blood 9.4 mg/dL (8.5-10.1); Creatinine, Blood 0.79 mg/dL (0.60-1.20); Globulin, Blood 3.5 g/dL (2.2-4.0); Potassium, Blood 4.4 mmol/L (3.5-5.5); Total Protein, Blood 6.7 g/dL (6.4-8.2)
[2024-01-26 16:02] VITALS: BP 116/60
== END 2024-01-26 16:03 | disposition home or self-care (01) ==
LOC: ER 00:24 → ERHOLD 00:25 → ER 00:25 → ERHOLD 00:25 → MEDS 00:25 → ERHOLD 16:03
PROVIDERS: Emergency Medicine; ADMIT Internal Medicine
DX: G93.40 Encephalopathy, unspecified (principal); F43.10 Post-traumatic stress disorder, unspecified; E78.00 Pure hypercholesterolemia, unspecified; J44.9 Chronic obstructive pulmonary disease, unspecified; I48.91 Unspecified atrial fibrillation; G40.909 Epilepsy, unspecified, not intractable, without status epilepticus; J96.12 Chronic respiratory failure with hypercapnia; J96.11 Chronic respiratory failure with hypoxia; Z91.041 Radiographic dye allergy status; Z79.899 Other long term (current) drug therapy; Z87.891 Personal history of nicotine dependence; Z91.199 Patient's noncompliance with other medical treatment and regimen due to unspecified reason
CPT/HCPCS: 51798; 70450; 71045; 80053; 82140; 82803; 83880; 84443; 84484; 85025; 93005; 93010; 94640; 94664; 96360; 96361; 96372-59; 99285-25; G0378; G0480; J1650; J7030

== ENCOUNTER 2024-01-28 22:56 | Inpatient (IN) | payer OTHER ==
[~2024-01-28] VITALS: Ht 167.6 cm; Wt 71.4 kg
[2024-01-28 23:30] LABS: BASOPHILS PERCENT AUTO 0 % (0-2); EOSINOPHILS PERCENT AUTO 0 % (0-6); Hematocrit 41.4 % (37.0-53.0); Hemoglobin 12.9 g/dL (13.5-17.5); IMMATURE GRAN ABSOLUTE AUTO 0.01 K/mm3 (0.00-0.10); IMMATURE GRAN PERCENT AUTO 0 % (0-1); LYMPHOCYTES ABSOLUTE AUTO 2.48 K/mm3 (0.84-5.20); LYMPHOCYTES PERCENT AUTO 35 % (21-46); MONOCYTES ABSOLUTE AUTO 0.93 K/mm3 (0.16-1.47); MONOCYTES PERCENT AUTO 13 % (4-13); Mean Corpuscular HGB 29.5 pg (26.0-34.0); Mean Corpuscular HGB Conc 31.2 g/dL (31.5-36.5); Mean Corpuscular Volume 95 fL (80-100); Mean Platelet Volume 9.3 fL (9.1-12.4); NEUTROPHILS ABSOLUTE AUTO 3.77 K/mm3 (1.96-9.15); NEUTROPHILS PERCENT AUTO 53 % (41-73); Platelet Count 230 K/mm3 (150-400); RDW Coefficient Variation 13.3 % (11.7-14.2); Red Blood Cell Count 4.37 M/mm3 (4.30-5.90); White Blood Cell Count 7.19 K/mm3 (4.00-11.30)
[2024-01-28 23:58] LABS: Albumin, Blood 3.5 g/dL (3.4-5.0); Albumin/Globulin Ratio 0.9 (0.8-1.8); Bilirubin, Total 0.5 mg/dL (0.1-1.0); Bun/Creatinine Ratio 16.9 (12.0-20.0); Calcium, Blood 9.6 mg/dL (8.5-10.1); Creatinine, Blood 0.77 mg/dL (0.60-1.20); Potassium, Blood 5.1 mmol/L (3.5-5.5); Total Protein, Blood 7.5 g/dL (6.4-8.2)
[2024-01-29 00:25] LABS: Influenza A, PCR NEGATIVE (NEGATIVE); Influenza B, PCR NEGATIVE (NEGATIVE); Resp Syncytial Virus, PCR NEGATIVE (NEGATIVE); SARS-Cov-2 (COVID-19) PCR, MMC NEGATIVE (NEGATIVE)
[2024-01-29] MEDS ORDERED: Ipratropium/Albuterol SulF 2.5-0.5MG/3 ML Amp INH ONE (00:45)
[2024-01-29] MEDS ORDERED: FLU VACC TS2024-25(6MOS UP)/PF 45 MCG/0.5 ML SYRINGE IM ONE (01:35)
[2024-01-29] MEDS ORDERED: Ipratropium/Albuterol SulF 2.5-0.5MG/3 ML Amp INH SCH (01:40)
[2024-01-29] MEDS ORDERED: Acetaminophen 325 MG TABLET PO PRN (01:40)
[2024-01-29] MEDS ORDERED: Lactated Ringer's 1,000 ML IV SCH (01:40)
[2024-01-29] MEDS ORDERED: Lactated Ringer's 500 ML IV SCH (02:00)
[2024-01-29] MEDS ORDERED: Albuterol 2.5 MG/3 ML VIAL INH PRN (02:10)
[2024-01-29 02:17] LABS: Base Excess Venous 15.5 mmol/L; PCO2 Venous 58.3 mmHg (38-42); pH Blood Venous 7.44 (7.34-7.37)
[2024-01-29] MEDS ORDERED: Azithromycin 250 MG Tab PO ONE (02:45)
[2024-01-29] MEDS ORDERED: MethylPREDNISolone Sod Succ 40 MG VIAL IM ONE (03:17)
[2024-01-29 04:09] LABS: BASOPHILS PERCENT AUTO 0 % (0-2); EOSINOPHILS PERCENT AUTO 0 % (0-6); Hematocrit 39.8 % (37.0-53.0); Hemoglobin 12.3 g/dL (13.5-17.5); IMMATURE GRAN ABSOLUTE AUTO 0.01 K/mm3 (0.00-0.10); IMMATURE GRAN PERCENT AUTO 0 % (0-1); LYMPHOCYTES ABSOLUTE AUTO 2.05 K/mm3 (0.84-5.20); LYMPHOCYTES PERCENT AUTO 33 % (21-46); MONOCYTES ABSOLUTE AUTO 0.64 K/mm3 (0.16-1.47); MONOCYTES PERCENT AUTO 10 % (4-13); Mean Corpuscular HGB 29.6 pg (26.0-34.0); Mean Corpuscular HGB Conc 30.9 g/dL (31.5-36.5); Mean Corpuscular Volume 96 fL (80-100); NEUTROPHILS ABSOLUTE AUTO 3.48 K/mm3 (1.96-9.15); NEUTROPHILS PERCENT AUTO 56 % (41-73); Platelet Count 212 K/mm3 (150-400); RDW Coefficient Variation 13.4 % (11.7-14.2); RDW Standard Deviation 47.7 fL (35.1-46.3); Red Blood Cell Count 4.16 M/mm3 (4.30-5.90); White Blood Cell Count 6.18 K/mm3 (4.00-11.30)
[2024-01-29 04:40] LABS: Albumin, Blood 3.3 g/dL (3.4-5.0); Albumin/Globulin Ratio 0.9 (0.8-1.8); Bilirubin, Total 0.4 mg/dL (0.1-1.0); Bun/Creatinine Ratio 17.3 (12.0-20.0); Calcium, Blood 9.4 mg/dL (8.5-10.1); Creatinine, Blood 0.75 mg/dL (0.60-1.20); Globulin, Blood 3.6 g/dL (2.2-4.0); Potassium, Blood 4.2 mmol/L (3.5-5.5); Total Protein, Blood 6.9 g/dL (6.4-8.2)
[2024-01-29 04:47] VITALS: BP 125/88
[2024-01-29] MEDS ORDERED: Mometasone/Formoterol MDI 200/5 mcg 13 GM INH SCH (05:10)
--- NOTE | 2024-01-29 05:33 | NUR ---
ARRIVAL TO UNIT PT ARRIVED TO UNIT FROM ER ON [facility]. MOVED OVER TO BED WITH SLIDING SHEET. PT HAD NC IN MOUTH DUE TO BEING ASLEEP AND MOUTH BREATHING. PT LUNGS SOUNDS ARE DIM T/O. TELE PLACED ON PT AND RUNNING SINUS @ 67 BPM. PT VERY TIRED AND IS UNABLE TO FULLY WAKE AND ANSWER QUESTIONS. DOES SLIGHTLY MUMBLE WHEN TALKED TO. PT ON OXIMIZER MASK AT THIS TIME W/ 2L. SATS STAYING ABOVE 95%. BED ALARM ON FOR SAFETY. VSS. CALL LIGHT WITHIN REACH
[2024-01-29 07:38] VITALS: BP 109/69
[2024-01-29] MEDS ORDERED: MethylPREDNISolone Sod Succ 125 MG Vial IV SCH (08:00)
[2024-01-29] MEDS ORDERED: Furosemide 10 MG / ML 2ML Vial IV ONE (08:25)
[2024-01-29] MEDS ORDERED: Fluticasone 0.05% Nasal Spray SCH (09:00)
[2024-01-29] MEDS ORDERED: Famotidine 10 MG/ML 2ML Vial IV SCH (09:00)
[2024-01-29] MEDS ORDERED: Loratadine 10 MG Tab PO SCH (09:00)
[2024-01-29] MEDS ORDERED: Enoxaparin 40 MG/0.4 ML SYR SC SCH (09:00)
[2024-01-29] MEDS ORDERED: Lactobacil 2-S.Thermo-Bifido 1 1 Cap PO SCH (09:00)
[2024-01-29] MEDS ORDERED: Apixaban 5 MG Tab PO SCH (09:00)
[2024-01-29] MEDS ORDERED: GuaiFENesin 600 MG TabCR PO SCH (09:00)
[2024-01-29] MEDS ORDERED: Lacosamide 50 MG Tablet PO SCH (09:00)
[2024-01-29] MEDS ORDERED: LevETIRAcetam 500 MG Tab PO SCH (09:00)
[2024-01-29] MEDS ORDERED: Metoprolol Succinate 25 MG TABCR PO SCH (09:00)
[2024-01-29 12:02] LABS: Adenovirus Not Detected (NOT DETECT); Bordetella pertussis Not Detected (NOT DETECT); Chlamydophila pneumoniae Not Detected (NOT DETECT); Coronavirus 229E Not Detected (NOT DETECT); Coronavirus HKU1 Not Detected (NOT DETECT); Coronavirus NL63 Not Detected (NOT DETECT); Coronavirus OC43 Not Detected (NOT DETECT); Human Metapneumovirus Not Detected (NOT DETECT); Human Rhinovirus/Enterovirus Not Detected (NOT DETECT); Influenza A/2009-H1 Not Detected (NOT DETECT); Influenza A/H1 Not Detected (NOT DETECT); Influenza A/H3 Not Detected (NOT DETECT); Influenza B Not Detected (NOT DETECT); Mycoplasma pneumoniae Not Detected (NOT DETECT); Parainfluenza Virus 1 Not Detected (NOT DETECT); Parainfluenza Virus 2 Not Detected (NOT DETECT); Parainfluenza Virus 3 Not Detected (NOT DETECT); Parainfluenza Virus 4 Not Detected (NOT DETECT); Respiratory Syncytial Virus Not Detected (NOT DETECT); SARS-Cov-2 (COVID-19), BioFire Not Detected (NOT DETECT)
[2024-01-29 15:03] VITALS: BP 122/79
--- NOTE | 2024-01-29 18:00 | NUR ---
SHIFT SUMMARY PT DID WELL DURING SHIFT. NO OBVIOUS RESP DISTRESS. SATS MAINTAINED WNL ON 2L/MIN NC. PT REMAINS ORIENTED TO HIMSELF AND FAMILY ONLY. PT MOSTLY SLEPT DURUING SHIFT BUT EASILY AROUSABLE. PT ABLE TO VOID INTO URINAL W/O ISSUE. PT'S VISITED AND UPDATED ON PLAN OF CARE. PT DID EAT WELL AND WAS ABLE TO TAKE HIS MEDS W/O ISSUE. BED ALARM IN PLACE DURING SHIFT. SIDE RAILS X3 UP AND CALL LIGHT WITHIN REACH.
[2024-01-29 19:43] VITALS: BP 109/71
[2024-01-30 03:41] VITALS: BP 101/85
--- NOTE | 2024-01-30 04:50 | NUR ---
SHIFT SUMMARY PT ALERT ORIENTED TO SELF VSS ON 2L VIA NC. REMAINS ON A CONTINUOUS PULSE OX. NO C/O PAIN. REMAINS ON ZITHROMAX QDAY. USES A URINAL WITH ASSIST. CONTINUES ON BEDREST WITH COMMODE. REMAINS ON TELEMETRY AT NSR AT A RATE OF 100. RESTING IN BED AT THIS TIME WITH CALL LIGHT IN REACH
[2024-01-30 06:40] LABS: Hematocrit 36.5 % (37.0-53.0); Hemoglobin 11.8 g/dL (13.5-17.5); Mean Corpuscular HGB 29.9 pg (26.0-34.0); Mean Corpuscular HGB Conc 32.3 g/dL (31.5-36.5); Mean Corpuscular Volume 92 fL (80-100); Mean Platelet Volume 9.6 fL (9.1-12.4); Platelet Count 236 K/mm3 (150-400); RDW Coefficient Variation 13.2 % (11.7-14.2); RDW Standard Deviation 45.1 fL (35.1-46.3); Red Blood Cell Count 3.95 M/mm3 (4.30-5.90)
[2024-01-30 07:07] VITALS: BP 133/84
[2024-01-30 07:11] LABS: Albumin, Blood 3.1 g/dL (3.4-5.0); Albumin/Globulin Ratio 0.9 (0.8-1.8); Bilirubin, Total 0.4 mg/dL (0.1-1.0); Calcium, Blood 9.5 mg/dL (8.5-10.1); Globulin, Blood 3.6 g/dL (2.2-4.0); Magnesium, Blood 2.1 mg/dL (1.6-2.4); Potassium, Blood 4.2 mmol/L (3.5-5.5); Total Protein, Blood 6.7 g/dL (6.4-8.2)
[2024-01-30] MEDS ORDERED: Azithromycin 500 MG in NS 250 ML IV SCH (09:00)
--- NOTE | 2024-01-30 11:00 | NUR ---
MORNING NOTE ASSUMED CARE AT APPROX 0715. PATIENT ALERT AND ORIENTED TO SELF AND FAMILY. PLEASANT, COOPERATIVE WITH CARE. SOFT, MUMBLED SPEECH - TAKES MEDS WHOLE IN WATER WITHOUT DIFFICULTY. NO S/S OF ASPIRATION NOTED. VSS. 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 BP STABLE. DENIES CHEST PAIN, PRESSURE. CURRENTLY ON 1-2L VIA NC, SATs 88-92%. MILD SHORTNESS OF BREATH AT REST. INCREASED SHORTNESS OF BREATH WITH MOBILITY - DID REQUIRE ADDITIONAL OXYGEN FOR TRANSFER. UP WITH 1-2P ASSIST FWW GB TO BSC, CHAIR. COMPLETE BEDBATH PERFORMED. REPORTED DIFFICULTY VOIDING THIS MORNING - BLADDER SCAN PERFORMED SHOWING <100ML. UNABLE TO VOID ON BSC - WILL CONTINUE TO MONITOR. CALL LIGHT IN REACH. CURRENTLY SITTING IN RECLINER CHAIR - CHAIR ALARM ON.
[2024-01-30 14:21] VITALS: BP 116/76
--- NOTE | 2024-01-30 18:37 | NUR ---
SHIFT SUMMARY NO ACUTE CHANGES SINCE PREVIOUS DOCUMENTATION. PATIENT REMAINS ALERT AND ORIENTED TO SELF AND FAMILY ONLY. REQUIRING FREQUENT REDIRECTION. COOPERATIVE WITH CARE. CHAIR ALARM/BED ALARM ON. FAMILY AT BEDSIDE T/O DAY - REPORTS THAT PATIENT IS RETURNING TO BASELINE MENTATION. DAUGHTER AT BEDSIDE ASSISTING WITH CARE - RECEPTIVE TO EDUCATION. VSS. ON 1-2L VIA NC AT REST, SATs 88-92%. DOES REQUIRE 3-4L VIA NC WITH ACTIVITY DESATs <88%, RECOVERS WITH REST. UP WITH 1-2P ASSIST FWW GB. UP IN RECLINER CHAIR MOST OF THE DAY. USING URINAL WITH ASSIST FROM STAFF. CALL LIGHT IN REACH. BED ALARM ON. WILL CONTINUE TO MONITOR AND REPORT TO ONCOMING RN.
[2024-01-30 19:48] VITALS: BP 125/68
[2024-01-30] MEDS ORDERED: Ipratropium/Albuterol SulF 2.5-0.5MG/3 ML Amp INH SCH (23:37)
--- NOTE | 2024-01-31 04:16 | NUR ---
SHIFT SUMMARY PATIENT STATES HIS SOB IS MUCH BETTER THAN YESTERDAY. SETTING OFF BED ALARM SEVERAL TIMES BEFORE SETTLING DOWN FOR THE NIGHT. DOES NOT USE CALL LIGHT. GIVEN PRN TYLENOL AT HS.
[2024-01-31 04:44] VITALS: BP 133/82
[2024-01-31 06:12] LABS: Hematocrit 35.9 % (37.0-53.0); Hemoglobin 11.9 g/dL (13.5-17.5)
[2024-01-31 06:46] LABS: Bun/Creatinine Ratio 42.4 (12.0-20.0); Calcium, Blood 9.6 mg/dL (8.5-10.1); Creatinine, Blood 0.97 mg/dL (0.60-1.20); Magnesium, Blood 2.3 mg/dL (1.6-2.4); Phosphorus, Blood 3.6 mg/dL (2.5-4.9)
[2024-01-31 07:20] VITALS: BP 126/82
--- NOTE | 2024-01-31 10:03 | NUR ---
MORNING NOTE ASSUMED CARE AT APPROX 0715. PATIENT ALERT AND ORIENTED TO SELF AND FAMILY. REQUIRES FREQUENT REORIENTATION TO LOCATION, CURRENT SITUATION, AND EVENTS LEADING TO ADMISSION. FAMILY STATES THAT HE IS AT BASELINE MENTATION. VSS. CURRENTLY ON 1-2L VIA NC, SATs >90%. SHORTNESS OF BREATH AT REST AND WITH MOBILITY. MD FONT[place]OT AT BEDSIDE THIS MORNING FOR ASSESSMENT - PHYSICAL THERAPY EVAL ORDERED FOR POSSIBLE HOME HEALTH NEED AT [place]. WORKING WITH PHYSICAL THERAPY NOW. CALL LIGHT IN REACH. BED ALARM ON.
[2024-01-31] MEDS ORDERED: LACO50TA2 PO (12:18)
[2024-01-31] MEDS ORDERED: LEVE500 PO (12:18)
[2024-01-31] MEDS ORDERED: METO25ER PO (12:19)
[2024-01-31] MEDS ORDERED: DULERA 200 MCG-13 GM INH (12:21)
[2024-01-31] MEDS ORDERED: ALBU90OI INH (12:22)
[2024-01-31] MEDS ORDERED: PRED20 PO (12:23)
--- NOTE | 2024-01-31 13:12 | NUR ---
DISCHARGE NOTE NO ACUTE CHANGES SINCE PREVIOUS DOCUMENTATION. PATIENT REMAINS ALERT AND ORIENTED TO SELF AND FAMILY - FAMILY STATES BASELINE MENTATION WITH HX OF DEMENTIA. PATIENT WORKED WITH PHYSICAL THERAPY THIS MORNING - RECOMMENDING HOME WITH HOME HEALTH. MD CONTACTED - ORDER FOR DC HOME WITH HOME HEALTH. VSS. PATIENT ON BASELINE 1-2L VIA NC, SATs 88-92%. PATIENT AMBULATING WITH 1P ASSIST - IS NOT REQUIRING ADDITIONAL OXYGEN WITH MOBILITY. IV REMOVED. PATIENTs DAUGHTER AND AT BEDSIDE - RECEPTIVE TO EDUCATION, ASSISTING WITH CARE. BOTH STATE UNDERSTANDING OF DC EDUCATION. PATIENT TRANSFERRED OFF UNIT TO PERSONAL VEHICLE VIA WHEELCHAIR AT APPROX 1310. PERSONAL BELONGINGS WITH PATIENTs FAMILY.
== END 2024-01-31 13:10 | disposition home health service (06) | DRG 189 ==
LOC: ER 22:56 → SURS 01-29 01:34 → ERHOLD 01-29 01:34 → SURS 01-29 04:53
PROVIDERS: Hospitalist; Student in an Organized Health Care Education/Training Program; ADMIT Internal Medicine
DX: J96.21 Acute and chronic respiratory failure with hypoxia (principal); G92.8 Other toxic encephalopathy; G93.41 Metabolic encephalopathy; J44.1 Chronic obstructive pulmonary disease with (acute) exacerbation; E87.29 Other acidosis; I47.20 Ventricular tachycardia, unspecified; J96.22 Acute and chronic respiratory failure with hypercapnia; I11.0 Hypertensive heart disease with heart failure; I50.9 Heart failure, unspecified; E78.00 Pure hypercholesterolemia, unspecified; G40.909 Epilepsy, unspecified, not intractable, without status epilepticus; F03.90 Unspecified dementia, unspecified severity, without behavioral disturbance, psychotic disturbance, mood disturbance, and anxiety; I48.91 Unspecified atrial fibrillation; Z99.81 Dependence on supplemental oxygen; Z88.8 Allergy status to other drugs, medicaments and biological substances; Z79.01 Long term (current) use of anticoagulants; Z87.891 Personal history of nicotine dependence
CPT/HCPCS: 0202U; 0241U; 36415; 71045; 80048; 80053; 82803; 83735; 83880; 84100; 84484; 85014; 85018; 85025; 85027; 93005; 93010; 94640; 94664; 94762; 97110; 97116; 97161; A9270; J0456; J1940; J2919; J7050; J7120

== ENCOUNTER 2024-02-01 12:34 | Emergency (ER) | payer OTHER ==
[~2024-02-01] VITALS: Ht 175.3 cm; Wt 63.5 kg
[~2024-02-01 12:34] MED LIST changes: +DULERA 200 MCG-13 GM INH; +LACO50TA2 PO; +METO25ER PO
[2024-02-01 16:31] LABS: BASOPHILS ABSOLUTE AUTO 0.01 K/mm3 (0.00-0.23); BASOPHILS PERCENT AUTO 0 % (0-2); EOSINOPHILS PERCENT AUTO 0 % (0-6); Hematocrit 36.3 % (37.0-53.0); Hemoglobin 11.5 g/dL (13.5-17.5); IMMATURE GRAN ABSOLUTE AUTO 0.02 K/mm3 (0.00-0.10); IMMATURE GRAN PERCENT AUTO 0 % (0-1); LYMPHOCYTES ABSOLUTE AUTO 1.97 K/mm3 (0.84-5.20); LYMPHOCYTES PERCENT AUTO 23 % (21-46); MONOCYTES ABSOLUTE AUTO 1.09 K/mm3 (0.16-1.47); MONOCYTES PERCENT AUTO 13 % (4-13); Mean Corpuscular HGB 29.8 pg (26.0-34.0); Mean Corpuscular HGB Conc 31.7 g/dL (31.5-36.5); Mean Corpuscular Volume 94 fL (80-100); Mean Platelet Volume 9.7 fL (9.1-12.4); NEUTROPHILS ABSOLUTE AUTO 5.65 K/mm3 (1.96-9.15); NEUTROPHILS PERCENT AUTO 65 % (41-73); Platelet Count 221 K/mm3 (150-400); RDW Coefficient Variation 13.8 % (11.7-14.2); Red Blood Cell Count 3.86 M/mm3 (4.30-5.90); White Blood Cell Count 8.74 K/mm3 (4.00-11.30)
[2024-02-01 16:39] LABS: Albumin, Blood 3.3 g/dL (3.4-5.0); Albumin/Globulin Ratio 1.1 (0.8-1.8); Bilirubin, Total 0.3 mg/dL (0.1-1.0); Bun/Creatinine Ratio 39.1 (12.0-20.0); Calcium, Blood 9.1 mg/dL (8.5-10.1); Creatinine, Blood 0.82 mg/dL (0.60-1.20); Globulin, Blood 3.1 g/dL (2.2-4.0); Total Protein, Blood 6.4 g/dL (6.4-8.2)
[2024-02-01 17:27] LABS: Source, Urine Clean Catch
[2024-02-01 17:30] VITALS: BP 100/75
[2024-02-01 17:33] LABS: Appearance, Urine Clear (Clear); Bilirubin, Urine Neg (Neg); Blood, Urine Neg (Neg); Color, Urine Yellow (P-Yellow); Glucose Qualitative, Urine Neg (Neg); Ketones, Urine Neg (Neg); Leukocyte Esterase, Urine Neg (Neg); Nitrite, Urine Neg (Neg); Protein, Urine Neg (Neg); Specific Gravity, Urine 1.015 (1.003-1.022); Urobilinogen, Urine NORM (Normal)
== END 2024-02-01 18:25 | disposition home or self-care (01) ==
LOC: ER 12:34
PROVIDERS: Emergency Medicine; Student in an Organized Health Care Education/Training Program
DX: G93.40 Encephalopathy, unspecified (principal); F03.90 Unspecified dementia, unspecified severity, without behavioral disturbance, psychotic disturbance, mood disturbance, and anxiety; G40.909 Epilepsy, unspecified, not intractable, without status epilepticus; I11.0 Hypertensive heart disease with heart failure; I50.30 Unspecified diastolic (congestive) heart failure; I48.91 Unspecified atrial fibrillation; J44.9 Chronic obstructive pulmonary disease, unspecified; E78.00 Pure hypercholesterolemia, unspecified; Z99.81 Dependence on supplemental oxygen; Z91.041 Radiographic dye allergy status; Z79.01 Long term (current) use of anticoagulants; Z79.51 Long term (current) use of inhaled steroids; Z79.52 Long term (current) use of systemic steroids; Z79.899 Other long term (current) drug therapy
CPT/HCPCS: 80053; 81003; 84484; 85025; 93005; 93010; 99285-25

== ENCOUNTER 2024-03-08 07:23 | Emergency (ER) | payer OTHER ==
[~2024-03-08] VITALS: Ht 162.6 cm; Wt 120.2 kg
[2024-03-08 07:44] VITALS: BP 124/65
== END 2024-03-08 11:08 | disposition home or self-care (01) ==
LOC: ER 07:23
DX: Z00.00 Encounter for general adult medical examination without abnormal findings (principal); Z99.81 Dependence on supplemental oxygen; I11.0 Hypertensive heart disease with heart failure; I50.30 Unspecified diastolic (congestive) heart failure; E78.00 Pure hypercholesterolemia, unspecified; G40.909 Epilepsy, unspecified, not intractable, without status epilepticus; J44.9 Chronic obstructive pulmonary disease, unspecified; F03.90 Unspecified dementia, unspecified severity, without behavioral disturbance, psychotic disturbance, mood disturbance, and anxiety; I48.91 Unspecified atrial fibrillation; Z88.8 Allergy status to other drugs, medicaments and biological substances; Z79.01 Long term (current) use of anticoagulants; Z79.899 Other long term (current) drug therapy; Z87.891 Personal history of nicotine dependence
CPT/HCPCS: 99282

== ENCOUNTER 2024-04-07 10:58 | Emergency (ER) | payer MEDICARE, OTHER ==
[~2024-04-07] VITALS: Ht 167.6 cm; Wt 73.5 kg
[2024-04-07] MEDS ORDERED: Ipratropium/Albuterol SulF 2.5-0.5MG/3 ML Amp INH ONE (11:30)
[2024-04-07 12:16] LABS: BASOPHILS ABSOLUTE AUTO 0.01 K/mm3 (0.00-0.23); BASOPHILS PERCENT AUTO 0 % (0-2); EOSINOPHILS PERCENT AUTO 0 % (0-6); Hematocrit 40.7 % (37.0-53.0); Hemoglobin 12.9 g/dL (13.5-17.5); IMMATURE GRAN ABSOLUTE AUTO 0.02 K/mm3 (0.00-0.10); IMMATURE GRAN PERCENT AUTO 0 % (0-1); LYMPHOCYTES PERCENT AUTO 23 % (21-46); MONOCYTES ABSOLUTE AUTO 0.68 K/mm3 (0.16-1.47); MONOCYTES PERCENT AUTO 10 % (4-13); Mean Corpuscular HGB Conc 31.7 g/dL (31.5-36.5); Mean Corpuscular Volume 95 fL (80-100); NEUTROPHILS ABSOLUTE AUTO 4.57 K/mm3 (1.96-9.15); NEUTROPHILS PERCENT AUTO 66 % (41-73); Platelet Count 222 K/mm3 (150-400); RDW Coefficient Variation 13.5 % (11.7-14.2); RDW Standard Deviation 47.7 fL (35.1-46.3); White Blood Cell Count 6.88 K/mm3 (4.00-11.30)
[2024-04-07 12:37] LABS: Albumin, Blood 3.6 g/dL (3.4-5.0); Albumin/Globulin Ratio 0.9 (0.8-1.8); Bilirubin, Total 0.7 mg/dL (0.1-1.0); Bun/Creatinine Ratio 13.4 (12.0-20.0); Calcium, Blood 9.4 mg/dL (8.5-10.1); Creatinine, Blood 0.97 mg/dL (0.60-1.20); Potassium, Blood 4.2 mmol/L (3.5-5.5); Total Protein, Blood 7.6 g/dL (6.4-8.2)
[2024-04-07] MEDS ORDERED: Doxycycline Hyclate 100 MG TAB PO ONE (13:40)
[2024-04-07] MEDS ORDERED: PredniSONE 20 MG Tab PO ONE (13:40)
[2024-04-07] MEDS ORDERED: IPRAT-ALBUT 0.5-3 ML INH (13:42)
[2024-04-07] MEDS ORDERED: PRED20 PO (13:42)
[2024-04-07] MEDS ORDERED: DOXY100 PO (13:42)
[2024-04-07 13:45] VITALS: BP 116/85
[2024-04-08 08:50] LABS: Influenza A, PCR NEGATIVE (NEGATIVE); Influenza B, PCR NEGATIVE (NEGATIVE); Resp Syncytial Virus, PCR NEGATIVE (NEGATIVE); SARS-Cov-2 (COVID-19) PCR, MMC NEGATIVE (NEGATIVE)
== END 2024-04-07 14:11 | disposition home or self-care (01) ==
LOC: ER 10:58
PROVIDERS: Student in an Organized Health Care Education/Training Program
DX: J44.1 Chronic obstructive pulmonary disease with (acute) exacerbation (principal); E78.00 Pure hypercholesterolemia, unspecified; I11.0 Hypertensive heart disease with heart failure; I50.30 Unspecified diastolic (congestive) heart failure; I48.91 Unspecified atrial fibrillation; F43.10 Post-traumatic stress disorder, unspecified; Z87.891 Personal history of nicotine dependence; Z79.52 Long term (current) use of systemic steroids; Z79.899 Other long term (current) drug therapy; Z91.041 Radiographic dye allergy status
CPT/HCPCS: 0241U; 71045; 80053; 83735; 83880; 84145; 85025; 93005; 93010; 94640; 94664; 99285-25; A9270; J7512

== ENCOUNTER 2024-05-16 03:54 | Emergency (ER) | payer MEDICARE, OTHER ==
[~2024-05-16] VITALS: Ht 167.6 cm; Wt 71.2 kg
[~2024-05-16 03:54] MED LIST changes: +DOXY100 PO
[2024-05-16 05:44] LABS: BASOPHILS ABSOLUTE AUTO 0.01 K/mm3 (0.00-0.23); BASOPHILS PERCENT AUTO 0 % (0-2); EOSINOPHILS PERCENT AUTO 0 % (0-6); Hematocrit 41.4 % (37.0-53.0); IMMATURE GRAN ABSOLUTE AUTO 0.01 K/mm3 (0.00-0.10); IMMATURE GRAN PERCENT AUTO 0 % (0-1); LYMPHOCYTES ABSOLUTE AUTO 2.27 K/mm3 (0.84-5.20); LYMPHOCYTES PERCENT AUTO 28 % (21-46); MONOCYTES ABSOLUTE AUTO 0.77 K/mm3 (0.16-1.47); MONOCYTES PERCENT AUTO 9 % (4-13); Mean Corpuscular HGB 29.7 pg (26.0-34.0); Mean Corpuscular HGB Conc 31.4 g/dL (31.5-36.5); Mean Corpuscular Volume 95 fL (80-100); Mean Platelet Volume 8.8 fL (9.1-12.4); NEUTROPHILS ABSOLUTE AUTO 5.18 K/mm3 (1.96-9.15); NEUTROPHILS PERCENT AUTO 63 % (41-73); Platelet Count 242 K/mm3 (150-400); RDW Coefficient Variation 12.8 % (11.7-14.2); RDW Standard Deviation 44.9 fL (35.1-46.3); Red Blood Cell Count 4.37 M/mm3 (4.30-5.90); White Blood Cell Count 8.24 K/mm3 (4.00-11.30)
[2024-05-16 06:24] LABS: Albumin, Blood 3.4 g/dL (3.4-5.0); Albumin/Globulin Ratio 0.9 (0.8-1.8); Bilirubin, Total 0.4 mg/dL (0.1-1.0); Bun/Creatinine Ratio 15.5 (12.0-20.0); Calcium, Blood 8.8 mg/dL (8.5-10.1); Creatinine, Blood 0.84 mg/dL (0.60-1.20); Globulin, Blood 3.7 g/dL (2.2-4.0); Potassium, Blood 4.2 mmol/L (3.5-5.5); Total Protein, Blood 7.1 g/dL (6.4-8.2)
[2024-05-16] MEDS ORDERED: AZIT250 PO (06:44)
[2024-05-16] MEDS ORDERED: Azithromycin 250 MG Tab PO ONE (06:45)
[2024-05-16] MEDS ORDERED: Dexamethasone Sod Phos 10 MG/ML 1ML VIAL IV ONE (06:45)
[2024-05-16 08:42] VITALS: BP 138/78
== END 2024-05-16 10:38 | disposition home or self-care (01) ==
LOC: ER 03:54
PROVIDERS: Student in an Organized Health Care Education/Training Program
DX: J44.1 Chronic obstructive pulmonary disease with (acute) exacerbation (principal); I10 Essential (primary) hypertension; F43.10 Post-traumatic stress disorder, unspecified; I48.91 Unspecified atrial fibrillation; Z87.891 Personal history of nicotine dependence; Z79.01 Long term (current) use of anticoagulants; Z79.899 Other long term (current) drug therapy; Z79.02 Long term (current) use of antithrombotics/antiplatelets; Z79.52 Long term (current) use of systemic steroids; Z91.041 Radiographic dye allergy status
CPT/HCPCS: 71046; 80053; 84484; 85025; 93005; 93010; 96374; 99285-25; A9270; J1100

== ENCOUNTER 2024-06-19 19:58 | Emergency (ER) | payer MEDICARE, OTHER ==
[~2024-06-19] VITALS: Ht 167.6 cm; Wt 67.1 kg
[2024-06-19] MEDS ORDERED: NS 500 ML IV SCH (20:20)
[2024-06-19 20:32] LABS: BASOPHILS ABSOLUTE AUTO 0.01 K/mm3 (0.00-0.23); BASOPHILS PERCENT AUTO 0 % (0-2); EOSINOPHILS PERCENT AUTO 0 % (0-6); Hematocrit 35.1 % (37.0-53.0); Hemoglobin 11.3 g/dL (13.5-17.5); IMMATURE GRAN ABSOLUTE AUTO 0.01 K/mm3 (0.00-0.10); IMMATURE GRAN PERCENT AUTO 0 % (0-1); LYMPHOCYTES ABSOLUTE AUTO 2.07 K/mm3 (0.84-5.20); LYMPHOCYTES PERCENT AUTO 27 % (21-46); MONOCYTES ABSOLUTE AUTO 1.05 K/mm3 (0.16-1.47); MONOCYTES PERCENT AUTO 14 % (4-13); Mean Corpuscular HGB 30.1 pg (26.0-34.0); Mean Corpuscular HGB Conc 32.2 g/dL (31.5-36.5); Mean Corpuscular Volume 93 fL (80-100); Mean Platelet Volume 8.7 fL (9.1-12.4); NEUTROPHILS ABSOLUTE AUTO 4.48 K/mm3 (1.96-9.15); NEUTROPHILS PERCENT AUTO 59 % (41-73); Platelet Count 181 K/mm3 (150-400); RDW Coefficient Variation 12.8 % (11.7-14.2); RDW Standard Deviation 43.6 fL (35.1-46.3); Red Blood Cell Count 3.76 M/mm3 (4.30-5.90); White Blood Cell Count 7.62 K/mm3 (4.00-11.30)
[2024-06-19 21:12] LABS: Albumin/Globulin Ratio 0.9 (0.8-1.8); Bilirubin, Total 0.3 mg/dL (0.1-1.0); Bun/Creatinine Ratio 15.9 (12.0-20.0); Creatinine, Blood 0.88 mg/dL (0.60-1.20); Globulin, Blood 3.3 g/dL (2.2-4.0); Potassium, Blood 3.7 mmol/L (3.5-5.5); Total Protein, Blood 6.3 g/dL (6.4-8.2)
[2024-06-19 22:30] VITALS: BP 109/39
== END 2024-06-19 22:51 | disposition home or self-care (01) ==
LOC: ER 19:58
PROVIDERS: Emergency Medicine
DX: R07.9 Chest pain, unspecified (principal); J44.9 Chronic obstructive pulmonary disease, unspecified; F03.90 Unspecified dementia, unspecified severity, without behavioral disturbance, psychotic disturbance, mood disturbance, and anxiety; I11.0 Hypertensive heart disease with heart failure; I50.40 Unspecified combined systolic (congestive) and diastolic (congestive) heart failure; Z88.8 Allergy status to other drugs, medicaments and biological substances; Z79.01 Long term (current) use of anticoagulants; Z79.899 Other long term (current) drug therapy; Z87.891 Personal history of nicotine dependence; Z79.52 Long term (current) use of systemic steroids
CPT/HCPCS: 71045; 80053; 83690; 84484; 85025; 99285-25; J7030

== ENCOUNTER 2024-06-28 06:31 | Emergency (ER) | payer MEDICARE, OTHER ==
[~2024-06-28] VITALS: Ht 177.8 cm; Wt 104.3 kg
[2024-06-28] MEDS ORDERED: Ketorolac Tromethamine 15mg Vial IV ONE (06:40)
[2024-06-28 07:03] LABS: BASOPHILS ABSOLUTE AUTO 0.01 K/mm3 (0.00-0.23); BASOPHILS PERCENT AUTO 0 % (0-2); EOSINOPHILS PERCENT AUTO 0 % (0-6); Hematocrit 33.9 % (37.0-53.0); Hemoglobin 10.5 g/dL (13.5-17.5); IMMATURE GRAN ABSOLUTE AUTO 0.01 K/mm3 (0.00-0.10); IMMATURE GRAN PERCENT AUTO 0 % (0-1); LYMPHOCYTES ABSOLUTE AUTO 1.76 K/mm3 (0.84-5.20); LYMPHOCYTES PERCENT AUTO 31 % (21-46); MONOCYTES ABSOLUTE AUTO 0.53 K/mm3 (0.16-1.47); MONOCYTES PERCENT AUTO 9 % (4-13); Mean Corpuscular HGB 29.7 pg (26.0-34.0); Mean Corpuscular Volume 96 fL (80-100); Mean Platelet Volume 8.3 fL (9.1-12.4); NEUTROPHILS ABSOLUTE AUTO 3.38 K/mm3 (1.96-9.15); NEUTROPHILS PERCENT AUTO 59 % (41-73); Platelet Count 238 K/mm3 (150-400); RDW Coefficient Variation 13.4 % (11.7-14.2); RDW Standard Deviation 46.1 fL (35.1-46.3); Red Blood Cell Count 3.53 M/mm3 (4.30-5.90); White Blood Cell Count 5.69 K/mm3 (4.00-11.30)
[2024-06-28 07:15] LABS: Bun/Creatinine Ratio 16.2 (12.0-20.0); Calcium, Blood 8.9 mg/dL (8.5-10.1); Creatinine, Blood 0.93 mg/dL (0.60-1.20); Potassium, Blood 4.5 mmol/L (3.5-5.5)
[2024-06-28 08:59] VITALS: BP 130/86
[2024-07-01] MEDS ORDERED: Prednisone20 MG PO (00:13)
== END 2024-06-28 09:13 | disposition home or self-care (01) ==
LOC: ER 06:31
PROVIDERS: Emergency Medicine
DX: M79.661 Pain in right lower leg (principal); F43.10 Post-traumatic stress disorder, unspecified; I10 Essential (primary) hypertension; J44.9 Chronic obstructive pulmonary disease, unspecified; I48.91 Unspecified atrial fibrillation; Z91.041 Radiographic dye allergy status; Z79.899 Other long term (current) drug therapy; Z79.01 Long term (current) use of anticoagulants; Z87.891 Personal history of nicotine dependence
CPT/HCPCS: 80048; 85025; 93971; 96374; 99284-25; J1885

== ENCOUNTER 2024-06-30 02:01 | Emergency (ER) | payer OTHER ==
[~2024-06-30] VITALS: Ht 154.9 cm; Wt 68.0 kg
[2024-06-30 02:27] LABS: BASOPHILS ABSOLUTE AUTO 0.01 K/mm3 (0.00-0.23); BASOPHILS PERCENT AUTO 0 % (0-2); EOSINOPHILS PERCENT AUTO 0 % (0-6); Hematocrit 37.2 % (37.0-53.0); Hemoglobin 11.5 g/dL (13.5-17.5); IMMATURE GRAN ABSOLUTE AUTO 0.01 K/mm3 (0.00-0.10); IMMATURE GRAN PERCENT AUTO 0 % (0-1); LYMPHOCYTES PERCENT AUTO 25 % (21-46); MONOCYTES ABSOLUTE AUTO 0.65 K/mm3 (0.16-1.47); MONOCYTES PERCENT AUTO 11 % (4-13); Mean Corpuscular HGB 29.6 pg (26.0-34.0); Mean Corpuscular HGB Conc 30.9 g/dL (31.5-36.5); Mean Corpuscular Volume 96 fL (80-100); NEUTROPHILS ABSOLUTE AUTO 3.78 K/mm3 (1.96-9.15); NEUTROPHILS PERCENT AUTO 64 % (41-73); Platelet Count 267 K/mm3 (150-400); RDW Coefficient Variation 13.6 % (11.7-14.2); RDW Standard Deviation 46.8 fL (35.1-46.3); Red Blood Cell Count 3.89 M/mm3 (4.30-5.90); White Blood Cell Count 5.95 K/mm3 (4.00-11.30)
[2024-06-30] MEDS ORDERED: Ipratropium/Albuterol SulF 2.5-0.5MG/3 ML Amp INH ONE (02:35)
[2024-06-30] MEDS ORDERED: MethylPREDNISolone Sod Succ 125 MG Vial IV ONE (02:35)
[2024-06-30 03:30] LABS: Influenza A, PCR NEGATIVE (NEGATIVE); Influenza B, PCR NEGATIVE (NEGATIVE); Resp Syncytial Virus, PCR NEGATIVE (NEGATIVE); SARS-Cov-2 (COVID-19) PCR, MMC NEGATIVE (NEGATIVE)
[2024-06-30] MEDS ORDERED: CefTRIAXone Sodium 1,000 MG in NS 100 ML IV ONE (03:55)
[2024-06-30 04:11] LABS: Albumin, Blood 3.3 g/dL (3.4-5.0); Albumin/Globulin Ratio 0.9 (0.8-1.8); Bilirubin, Total 0.7 mg/dL (0.1-1.0); Calcium, Blood 8.9 mg/dL (8.5-10.1); Creatinine, Blood 0.7 mg/dL (0.60-1.20); Globulin, Blood 3.8 g/dL (2.2-4.0); Potassium, Blood 5.4 mmol/L (3.5-5.5); Total Protein, Blood 7.1 g/dL (6.4-8.2)
[2024-06-30] MEDS ORDERED: AMOCLA875 PO (06:20)
[2024-06-30 07:31] VITALS: BP 156/95
[2024-07-01] MEDS ORDERED: Prednisone20 MG PO (00:13)
== END 2024-06-30 07:48 | disposition home or self-care (01) ==
LOC: ER 02:01
PROVIDERS: Student in an Organized Health Care Education/Training Program
DX: J44.0 Chronic obstructive pulmonary disease with (acute) lower respiratory infection (principal); J18.9 Pneumonia, unspecified organism; J44.1 Chronic obstructive pulmonary disease with (acute) exacerbation; I11.0 Hypertensive heart disease with heart failure; I50.40 Unspecified combined systolic (congestive) and diastolic (congestive) heart failure; I48.91 Unspecified atrial fibrillation; F43.10 Post-traumatic stress disorder, unspecified; E78.00 Pure hypercholesterolemia, unspecified; Z87.891 Personal history of nicotine dependence; Z79.52 Long term (current) use of systemic steroids; Z79.899 Other long term (current) drug therapy; Z91.041 Radiographic dye allergy status
CPT/HCPCS: 0241U; 71046; 80053; 83880; 84484; 85025; 93005; 93010; 94640; 94664; 96365; 96375; 99285-25; J0696

== ENCOUNTER 2024-07-03 02:29 | Emergency (ER) | payer OTHER ==
[~2024-07-03] VITALS: Ht 167.6 cm; Wt 68.0 kg
[~2024-07-03 02:29] MED LIST changes: +AMOCLA875 PO
[2024-07-03] MEDS ORDERED: Albuterol 2.5 MG/3 ML VIAL INH SCH (02:40)
[2024-07-03] MEDS ORDERED: MethylPREDNISolone Sod Succ 125 MG Vial IV ONE (02:40)
[2024-07-03] MEDS ORDERED: Ipratropium/Albuterol SulF 2.5-0.5MG/3 ML Amp INH ONE (02:40)
[2024-07-03 02:44] LABS: Base Excess Venous 14.1 mmol/L; Bicarbonate Venous 35.5 mmol/L (24.0-30.0); PCO2 Venous 58.8 mmHg (38-42); pH Blood Venous 7.42 (7.34-7.37)
[2024-07-03 02:48] LABS: BASOPHILS PERCENT AUTO 0 % (0-2); EOSINOPHILS ABSOLUTE AUTO 0.01 K/mm3 (0.00-0.68); EOSINOPHILS PERCENT AUTO 0 % (0-6); Hematocrit 35.8 % (37.0-53.0); Hemoglobin 11.3 g/dL (13.5-17.5); IMMATURE GRAN ABSOLUTE AUTO 0.01 K/mm3 (0.00-0.10); IMMATURE GRAN PERCENT AUTO 0 % (0-1); LYMPHOCYTES ABSOLUTE AUTO 1.91 K/mm3 (0.84-5.20); LYMPHOCYTES PERCENT AUTO 29 % (21-46); MONOCYTES ABSOLUTE AUTO 0.76 K/mm3 (0.16-1.47); MONOCYTES PERCENT AUTO 12 % (4-13); Mean Corpuscular HGB 29.9 pg (26.0-34.0); Mean Corpuscular HGB Conc 31.6 g/dL (31.5-36.5); Mean Corpuscular Volume 95 fL (80-100); Mean Platelet Volume 9.4 fL (9.1-12.4); NEUTROPHILS PERCENT AUTO 59 % (41-73); Platelet Count 243 K/mm3 (150-400); RDW Coefficient Variation 14.2 % (11.7-14.2); RDW Standard Deviation 48.3 fL (35.1-46.3); Red Blood Cell Count 3.78 M/mm3 (4.30-5.90); White Blood Cell Count 6.49 K/mm3 (4.00-11.30)
[2024-07-03 03:37] LABS: Magnesium, Blood 1.9 mg/dL (1.6-2.4)
[2024-07-03 03:41] LABS: Albumin, Blood 3.2 g/dL (3.4-5.0); Bilirubin, Total 0.5 mg/dL (0.1-1.0); Bun/Creatinine Ratio 15.6 (12.0-20.0); Calcium, Blood 8.4 mg/dL (8.5-10.1); Creatinine, Blood 0.84 mg/dL (0.60-1.20); Globulin, Blood 3.1 g/dL (2.2-4.0); Total Protein, Blood 6.3 g/dL (6.4-8.2)
[2024-07-03] MEDS ORDERED: Mag Hydrox/AL Hydrox/Simeth 30 ML UDC PO ONE (04:05)
[2024-07-03 05:30] VITALS: BP 101/69
== END 2024-07-03 05:50 | disposition home or self-care (01) ==
LOC: ER 02:29
PROVIDERS: Student in an Organized Health Care Education/Training Program
DX: J44.1 Chronic obstructive pulmonary disease with (acute) exacerbation (principal); I11.0 Hypertensive heart disease with heart failure; I50.40 Unspecified combined systolic (congestive) and diastolic (congestive) heart failure; I48.91 Unspecified atrial fibrillation; E78.00 Pure hypercholesterolemia, unspecified; F43.10 Post-traumatic stress disorder, unspecified; Z87.891 Personal history of nicotine dependence; Z79.52 Long term (current) use of systemic steroids; Z91.041 Radiographic dye allergy status
CPT/HCPCS: 71045; 80053; 82803; 83735; 85025; 94644; 94664; A9270; J2919

== ENCOUNTER 2024-07-24 05:26 | Emergency (ER) | payer OTHER ==
[~2024-07-24] VITALS: Ht 167.6 cm; Wt 75.8 kg
[2024-07-24 05:49] LABS: BASOPHILS PERCENT AUTO 0 % (0-2); EOSINOPHILS PERCENT AUTO 0 % (0-6); Hematocrit 37.3 % (37.0-53.0); IMMATURE GRAN ABSOLUTE AUTO 0.01 K/mm3 (0.00-0.10); IMMATURE GRAN PERCENT AUTO 0 % (0-1); LYMPHOCYTES ABSOLUTE AUTO 1.67 K/mm3 (0.84-5.20); LYMPHOCYTES PERCENT AUTO 27 % (21-46); MONOCYTES ABSOLUTE AUTO 0.63 K/mm3 (0.16-1.47); MONOCYTES PERCENT AUTO 10 % (4-13); Mean Corpuscular HGB 29.9 pg (26.0-34.0); Mean Corpuscular HGB Conc 32.2 g/dL (31.5-36.5); Mean Corpuscular Volume 93 fL (80-100); Mean Platelet Volume 8.7 fL (9.1-12.4); NEUTROPHILS ABSOLUTE AUTO 3.89 K/mm3 (1.96-9.15); NEUTROPHILS PERCENT AUTO 63 % (41-73); Platelet Count 211 K/mm3 (150-400); RDW Coefficient Variation 13.7 % (11.7-14.2); RDW Standard Deviation 46.8 fL (35.1-46.3); Red Blood Cell Count 4.01 M/mm3 (4.30-5.90)
[2024-07-24 06:14] LABS: Albumin, Blood 3.7 g/dL (3.4-5.0); Albumin/Globulin Ratio 1.1 (0.8-1.8); Bilirubin, Total 0.9 mg/dL (0.1-1.0); Calcium, Blood 9.5 mg/dL (8.5-10.1); Globulin, Blood 3.4 g/dL (2.2-4.0); Potassium, Blood 3.6 mmol/L (3.5-5.5); Total Protein, Blood 7.1 g/dL (6.4-8.2)
[2024-07-24 06:51] LABS: Source, Urine Clean Catch
[2024-07-24 07:05] LABS: Appearance, Urine Clear (Clear); Bilirubin, Urine Neg (Neg); Blood, Urine 2+ (Neg); Color, Urine Yellow (P-Yellow); Glucose Qualitative, Urine Neg (Neg); Ketones, Urine Neg (Neg); Leukocyte Esterase, Urine Neg (Neg); Nitrite, Urine Neg (Neg); Protein, Urine 1+ (Neg); Urobilinogen, Urine NORM (Normal)
[2024-07-24 07:16] LABS: White Blood Cells, Urine 0-2 /hpf (0-5)
[2024-07-24 07:17] LABS: Bacteria Rare /hpf; Renal Epithelial Rare /hpf (0-Rare); Squamous Epithelial Cells Rare /hpf (Few)
[2024-07-24] MEDS ORDERED: Sod Phosphate/Sod Biphosphate 132 ML BTL PR ONE (08:20)
[2024-07-24] MEDS ORDERED: MOVANTIK25 M1 PO (11:14)
[2024-07-24 12:35] VITALS: BP 116/67
== END 2024-07-24 12:45 | disposition home or self-care (01) ==
LOC: ER 05:26
PROVIDERS: Student in an Organized Health Care Education/Training Program
DX: K56.41 Fecal impaction (principal); E78.00 Pure hypercholesterolemia, unspecified; G40.909 Epilepsy, unspecified, not intractable, without status epilepticus; J44.9 Chronic obstructive pulmonary disease, unspecified; F03.90 Unspecified dementia, unspecified severity, without behavioral disturbance, psychotic disturbance, mood disturbance, and anxiety; I48.91 Unspecified atrial fibrillation; I11.0 Hypertensive heart disease with heart failure; I50.40 Unspecified combined systolic (congestive) and diastolic (congestive) heart failure; Z99.81 Dependence on supplemental oxygen; Z87.891 Personal history of nicotine dependence; Z91.041 Radiographic dye allergy status; Z79.01 Long term (current) use of anticoagulants; Z79.51 Long term (current) use of inhaled steroids; Z79.52 Long term (current) use of systemic steroids; Z79.899 Other long term (current) drug therapy
CPT/HCPCS: 51702; 51798; 74176; 80053; 81001; 83690; 84484; 85025; 93005; 93010; 99284-25; A9270

== ENCOUNTER 2024-08-16 05:28 | Emergency (ER) | payer OTHER ==
[~2024-08-16] VITALS: Ht 167.6 cm; Wt 65.8 kg
[~2024-08-16 05:28] MED LIST changes: +MOVANTIK25 M1 PO
[2024-08-16 05:43] LABS: BASOPHILS ABSOLUTE AUTO 0.01 K/mm3 (0.00-0.23); BASOPHILS PERCENT AUTO 0 % (0-2); EOSINOPHILS ABSOLUTE AUTO 0.00 K/mm3 (0.00-0.68); EOSINOPHILS PERCENT AUTO 0 % (0-6); Hematocrit 37.1 % (37.0-53.0); Hemoglobin 11.6 g/dL (13.5-17.5); IMMATURE GRAN ABSOLUTE AUTO 0.03 K/mm3 (0.00-0.10); IMMATURE GRAN PERCENT AUTO 0 % (0-1); LYMPHOCYTES ABSOLUTE AUTO 0.91 K/mm3 (0.84-5.20); LYMPHOCYTES PERCENT AUTO 10 % (21-46); MONOCYTES ABSOLUTE AUTO 0.32 K/mm3 (0.16-1.47); MONOCYTES PERCENT AUTO 4 % (4-13); Mean Corpuscular HGB Conc 31.3 g/dL (31.5-36.5); Mean Corpuscular Volume 94 fL (80-100); NEUTROPHILS ABSOLUTE AUTO 7.64 K/mm3 (1.96-9.15); NEUTROPHILS PERCENT AUTO 86 % (41-73); NRBC ABSOLUTE 0.00 K/mm3 (0.00-0.02); NRBC Auto 0.0 /100 WBC (0.0-0.2); Platelet Count 216 K/mm3 (150-400); RDW Coefficient Variation 13.1 % (11.7-14.2); RDW Standard Deviation 45.3 fL (35.1-46.3)
[2024-08-16 06:09] LABS: Alanine Aminotransfer (ALT/SGP 21.0 U/L (12-78); Albumin, Blood 3.1 g/dL (3.4-5.0); Albumin/Globulin Ratio 0.9 (0.8-1.8); Anion Gap 8.0 mmol/L (3-11); Aspartate Aminotrans (AST/SGOT 16.0 U/L (12-37); Bilirubin, Total 0.3 mg/dL (0.1-1.0); Blood Urea Nitrogen 13.0 mg/dL (8-24); CO2, Blood 34.0 mmol/L (21-32); Calcium, Blood 8.8 mg/dL (8.5-10.1); Chloride, Blood 95.0 mmol/L (98-108); Creatinine, Blood 0.93 mg/dL (0.60-1.20); Globulin, Blood 3.3 g/dL (2.2-4.0); Glucose, Blood 114.0 mg/dL (70-99); Potassium, Blood 3.8 mmol/L (3.5-5.5); Sodium, Blood 133.0 mmol/L (136-145); Total Protein, Blood 6.4 g/dL (6.4-8.2)
[2024-08-16] MEDS ORDERED: Albuterol 2.5 MG/3 ML VIAL INH SCH (06:25)
[2024-08-16] MEDS ORDERED: Ipratropium/Albuterol SulF 2.5-0.5MG/3 ML Amp INH ONE (06:25)
[2024-08-16 06:51] LABS: pH Blood Venous 7.39 (7.34-7.37)
[2024-08-16] MEDS ORDERED: AZIT250 PO (08:31)
[2024-08-16 11:15] VITALS: BP 107/69
== END 2024-08-16 11:29 | disposition home or self-care (01) ==
LOC: ER 05:28
PROVIDERS: Emergency Medicine; Student in an Organized Health Care Education/Training Program
DX: J44.1 Chronic obstructive pulmonary disease with (acute) exacerbation (principal); J96.11 Chronic respiratory failure with hypoxia; Z91.041 Radiographic dye allergy status; Z79.01 Long term (current) use of anticoagulants; Z79.899 Other long term (current) drug therapy; I10 Essential (primary) hypertension; I48.91 Unspecified atrial fibrillation; Z87.891 Personal history of nicotine dependence
CPT/HCPCS: 71045; 80053; 82803; 83880; 84484; 85025; 93005; 93010; 96374; 99285-25; A9270; J2919